=== PATIENT | female | born 1975 | race Caucasian/White ===

== ENCOUNTER 2017-05-15 13:14 | Inpatient (IN) | payer MEDICARE ==
[2017-05-15] MEDS: CEFEPIME 2GM/50 ML (PMX) 50 ML IVPB (21:00)
[2017-05-15] MEDS: ONDANSETRON 4 MG INJ IV (21:04)
[2017-05-15] MEDS: HYDROmorphONE 1 MG/ML SYG IV (21:04)
[2017-05-15] MEDS: VANCOMYCIN 1 GM (PMX) 250 ML IVPB (21:05)
[2017-05-15] MEDS: SODIUM CHLORIDE 0.9% 1L BAG IV* (21:06)
[2017-05-15 21:17] LABS: ADD MAN DIFF? NO
[2017-05-15 21:21] LABS: BASOPHILS % 0.2 % (0.0-2.0); EOSINOPHILS % 0.1 % (0.0-7.0); HEMATOCRIT 35.6 % (37.0-47.0); HEMOGLOBIN 12.2 g/dl (12.0-16.0); LYMPHOCYTES # 2.3 10^3/ul (0.8-2.9); LYMPHOCYTES % 16.5 % (15.0-51.0); MEAN CORPUSCULAR HEMOGLOBIN 28.8 pg (29.0-33.0); MEAN CORPUSCULAR HGB CONC 34.3 g/dl (32.0-37.0); MEAN CORPUSCULAR VOLUME 84.2 fl (82.0-101.0); MONOCYTE # 1.4 10^3/ul (0.3-0.9); MONOCYTES % 10.2 % (0.0-11.0); NEUTROPHIL # 10.2 10^3/ul (1.6-7.5); NEUTROPHILS % 72.6 % (39.0-77.0); PLATELET COUNT 432 10^3/UL (140-415); RED BLOOD COUNT 4.23 10^6/ul (4.20-5.40); RED CELL DISTRIBUTION WIDTH 13.1 % (11.5-14.5)
[2017-05-15 21:21] LABS: WHITE BLOOD COUNT 14.1 10^3/ul (4.8-10.8)
[2017-05-15 21:36] LABS: INR 1.07; PT RATIO 1.1
[2017-05-15 21:37] LABS: LACTIC ACID 1.5 mmol/L (0.5-2.0)
[2017-05-15 21:37] LABS: PARTIAL THROMBOPLASTIN TIME 37.8 Sec (25.0-35.0)
[2017-05-15 21:40] LABS: ALANINE AMINOTRANSFERASE 24 IU/L (13-69); ALBUMIN 3.5 g/dl (3.3-4.9); ALBUMIN/GLOBULIN RATIO 0.97; ALKALINE PHOSPHATASE 117 IU/L (42-121); ANION GAP 15 (8-16); ASPARTATE AMINO TRANSFERASE 26 IU/L (15-46); BILIRUBIN,INDIRECT 0.4 mg/dl (0-1.1); BILIRUBIN,TOTAL 0.4 mg/dl (0.2-1.3); BLOOD UREA NITROGEN 14 mg/dl (7-20); CALCIUM 8.8 mg/dl (8.4-10.2); CARBON DIOXIDE 27 mmol/L (21-31); CHLORIDE 91 mmol/L (97-110); CREATININE 0.69 mg/dl (0.44-1.00); GLUCOSE 113 mg/dl (70-220); POTASSIUM 3.9 mmol/L (3.5-5.1); SODIUM 129 mmol/L (135-144); TOTAL PROTEIN 7.1 g/dl (6.1-8.1)
[2017-05-15 21:51] LABS: TROPONIN-I < 0.012 ng/ml (0.00-0.12)
[2017-05-16] LABS: LACTIC ACID 1.1 mmol/L (0.5-2.0)
[2017-05-16] MEDS ORDERED: ACETAMINOPHEN 325 MG TAB PO (01:30)
[2017-05-16] MEDS ORDERED: ONDANSETRON 4 MG INJ IV (01:30)
[2017-05-16 04:11] LABS: LACTIC ACID 0.9 mmol/L (0.5-2.0)
[2017-05-16] MEDS ORDERED: VANCOMYCIN IV PER PHARMACY XX (05:00)
[2017-05-16] MEDS: HYDROmorphONE 0.5 MG/0.5 ML SYG IV ×5 (05:31→21:42)
[2017-05-16] MEDS: SOD CHLORIDE 0.9% 1,000 ML IV ×3 (05:35→20:28)
[2017-05-16 06:31] LABS: ADD MAN DIFF? NO
[2017-05-16 06:35] LABS: WHITE BLOOD COUNT 9.2 10^3/ul (4.8-10.8)
[2017-05-16 06:35] LABS: BASOPHILS % 0.2 % (0.0-2.0); EOSINOPHILS # 0.1 10^3/ul (0.0-0.5); EOSINOPHILS % 0.7 % (0.0-7.0); HEMATOCRIT 29.8 % (37.0-47.0); HEMOGLOBIN 10.1 g/dl (12.0-16.0); LYMPHOCYTES # 1.6 10^3/ul (0.8-2.9); LYMPHOCYTES % 17.7 % (15.0-51.0); MEAN CORPUSCULAR HEMOGLOBIN 28.8 pg (29.0-33.0); MEAN CORPUSCULAR HGB CONC 33.9 g/dl (32.0-37.0); MEAN CORPUSCULAR VOLUME 84.9 fl (82.0-101.0); MEAN PLATELET VOLUME 8.4 fl (7.4-10.4); MONOCYTES % 11.1 % (0.0-11.0); NEUTROPHIL # 6.4 10^3/ul (1.6-7.5); PLATELET COUNT 291 10^3/UL (140-415); RED BLOOD COUNT 3.51 10^6/ul (4.20-5.40); RED CELL DISTRIBUTION WIDTH 12.8 % (11.5-14.5)
[2017-05-16 07:01] LABS: ANION GAP 11 (8-16); BLOOD UREA NITROGEN 10 mg/dl (7-20); CARBON DIOXIDE 25 mmol/L (21-31); CHLORIDE 99 mmol/L (97-110); GLUCOSE 104 mg/dl (70-220); POTASSIUM 3.6 mmol/L (3.5-5.1); SODIUM 131 mmol/L (135-144)
[2017-05-16] MEDS: CEFEPIME 2GM/50 ML (PMX) 50 ML IVPB (08:34)
[2017-05-16] MEDS: VANCOMYCIN 1.25 GM in SOD CHLORIDE 0.9% 250 ML IVPB (09:55)
[2017-05-16] MEDS: LIDOCAINE 1% (MPF) 5 ML VIAL SC ×2 (12:00→12:35)
[2017-05-16] MEDS: SOD CHLORIDE 0.9% 100 ML (12:50)
[2017-05-16] MEDS: PIPER-TAZO 3.375 GM IV (PMX) 100 ML IVPB ×2 (13:49→20:27)
[2017-05-16] MEDS: VANCOMYCIN 1 GM 250 ML IVPB (18:05)
[2017-05-17] MEDS: SOD CHLORIDE 0.9% 1,000 ML IV ×4 (00:45→23:18)
[2017-05-17] MEDS: PIPER-TAZO 3.375 GM IV (PMX) 100 ML IVPB ×4 (00:45→18:03)
[2017-05-17] MEDS: VANCOMYCIN 1 GM 250 ML IVPB ×3 (02:21→22:12)
[2017-05-17] MEDS: HYDROmorphONE 0.5 MG/0.5 ML SYG IV ×3 (04:29→17:40)
[2017-05-17 05:42] LABS: ADD UMIC NO; UR AMORPHOUS CRYSTAL FEW /HPF (NONE SEEN); UR ASCORBIC ACID NEGATIVE (NEGATIVE); UR BACTERIA FEW /HPF (NONE SEEN); UR BILIRUBIN (Dip) NEGATIVE (NEGATIVE); UR BLOOD (Dip) NEGATIVE (NEGATIVE); UR CLARITY SLIGHTLY CLOUDY (CLEAR); UR COLOR YELLOW (YELLOW); UR GLUCOSE (Dip) NEGATIVE (NEGATIVE); UR KETONES (Dip) NEGATIVE (NEGATIVE); UR LEUKOCYTE ESTERASE (Dip) NEGATIVE Leu/ul (NEGATIVE); UR NITRITE (Dip) NEGATIVE (NEGATIVE); UR RBC 2 /HPF (0-5); UR SPECIFIC GRAVITY (Dip) 1.014 (1.003-1.030); UR TOTAL PROTEIN (Dip) NEGATIVE (NEGATIVE); UR UROBILINOGEN (Dip) NEGATIVE (NEGATIVE); UR WBC 4 /HPF (0-5)
[2017-05-17 05:48] LABS: ADD MAN DIFF? NO
[2017-05-17] MEDS: PANTOPRAZOLE (EC) 40 MG TAB PO (05:51)
[2017-05-17 06:00] LABS: BASOPHILS % 0.3 % (0.0-2.0); EOSINOPHILS % 0.4 % (0.0-7.0); HEMATOCRIT 27.8 % (37.0-47.0); HEMOGLOBIN 9.2 g/dl (12.0-16.0); LYMPHOCYTES % 12.8 % (15.0-51.0); MEAN CORPUSCULAR HEMOGLOBIN 28.8 pg (29.0-33.0); MEAN CORPUSCULAR HGB CONC 33.1 g/dl (32.0-37.0); MEAN CORPUSCULAR VOLUME 86.9 fl (82.0-101.0); MEAN PLATELET VOLUME 8.9 fl (7.4-10.4); MONOCYTE # 0.9 10^3/ul (0.3-0.9); MONOCYTES % 11.7 % (0.0-11.0); NEUTROPHIL # 5.9 10^3/ul (1.6-7.5); NEUTROPHILS % 74.3 % (39.0-77.0); PLATELET COUNT 299 10^3/UL (140-415); RED CELL DISTRIBUTION WIDTH 12.8 % (11.5-14.5)
[2017-05-17 06:21] LABS: ALANINE AMINOTRANSFERASE 25 IU/L (13-69); ALBUMIN 2.4 g/dl (3.3-4.9); ALBUMIN/GLOBULIN RATIO 0.75; ALKALINE PHOSPHATASE 87 IU/L (42-121); ANION GAP 12 (8-16); ASPARTATE AMINO TRANSFERASE 17 IU/L (15-46); BILIRUBIN,INDIRECT 0.1 mg/dl (0-1.1); BILIRUBIN,TOTAL 0.1 mg/dl (0.2-1.3); BLOOD UREA NITROGEN 10 mg/dl (7-20); CARBON DIOXIDE 24 mmol/L (21-31); CHLORIDE 100 mmol/L (97-110); CREATININE 1.09 mg/dl (0.44-1.00); GLUCOSE 107 mg/dl (70-220); MAGNESIUM 1.4 mg/dl (1.7-2.5); POTASSIUM 3.6 mmol/L (3.5-5.1); SODIUM 132 mmol/L (135-144); TOTAL PROTEIN 5.6 g/dl (6.1-8.1)
[2017-05-17 06:28] LABS: C-REACTIVE PROTEIN 16.9 mg/dl (0.0-0.9)
[2017-05-17 07:59] LABS: ERYTHROCYTE SEDIMENTATION RATE 81 mm/Hr (0-20)
[2017-05-17] MEDS: ZINC SULFATE 220 MG CAP GTB (08:33)
[2017-05-17] MEDS: MULTIVITAMINS THERAPEUTIC TAB PO (08:33)
[2017-05-17] MEDS: ONDANSETRON 4 MG INJ IV (09:21)
[2017-05-17] MEDS: MAGNESIUM SULFATE 3 GM in DEXTROSE 5% 100 ML IVPB (10:05)
[2017-05-17 10:46] LABS: VANCOMYCIN,TROUGH 26.2 ug/ml (10.0-20.0)
[2017-05-17] MEDS: LACTOBACILLUS RHAMNOSUS CAP PO ×2 (11:53→22:11)
[2017-05-17] MEDS: SOD CHLORIDE 0.9% 100 ML (14:25)
[2017-05-17 15:34] LABS: RAPID PLASMA REAGIN NONREACTIVE (NR); RHEUMATOID FACTOR NEGATIVE (NEGATIVE)
[2017-05-18] MEDS: PIPER-TAZO 3.375 GM IV (PMX) 100 ML IVPB ×4 (00:29→21:32)
[2017-05-18] MEDS: ONDANSETRON 4 MG INJ IV ×2 (03:15→10:10)
[2017-05-18] MEDS: HYDROmorphONE 0.5 MG/0.5 ML SYG IV ×3 (03:15→17:57)
[2017-05-18] MEDS: SOD CHLORIDE 0.9% 1,000 ML IV ×4 (05:00→23:05)
[2017-05-18] MEDS: PANTOPRAZOLE (EC) 40 MG TAB PO (05:15)
[2017-05-18 05:46] LABS: ADD MAN DIFF? NO
[2017-05-18 05:54] LABS: BASOPHILS % 0.3 % (0.0-2.0); EOSINOPHILS # 0.1 10^3/ul (0.0-0.5); HEMATOCRIT 27.2 % (37.0-47.0); LYMPHOCYTES % 13.5 % (15.0-51.0); MEAN CORPUSCULAR HEMOGLOBIN 28.6 pg (29.0-33.0); MEAN CORPUSCULAR HGB CONC 33.1 g/dl (32.0-37.0); MEAN CORPUSCULAR VOLUME 86.3 fl (82.0-101.0); MONOCYTE # 0.8 10^3/ul (0.3-0.9); MONOCYTES % 10.9 % (0.0-11.0); NEUTROPHIL # 5.2 10^3/ul (1.6-7.5); PLATELET COUNT 287 10^3/UL (140-415); RED BLOOD COUNT 3.15 10^6/ul (4.20-5.40); RED CELL DISTRIBUTION WIDTH 13.2 % (11.5-14.5)
[2017-05-18 05:54] LABS: WHITE BLOOD COUNT 7.1 10^3/ul (4.8-10.8)
[2017-05-18 06:19] LABS: ANION GAP 10 (8-16); BLOOD UREA NITROGEN 13 mg/dl (7-20); CALCIUM 8.1 mg/dl (8.4-10.2); CARBON DIOXIDE 23 mmol/L (21-31); CHLORIDE 104 mmol/L (97-110); CREATININE 1.93 mg/dl (0.44-1.00); GLUCOSE 111 mg/dl (70-220); MAGNESIUM 2.2 mg/dl (1.7-2.5); POTASSIUM 3.7 mmol/L (3.5-5.1); SODIUM 133 mmol/L (135-144)
[2017-05-18 06:49] LABS: TOTAL IRON BINDING CAPACITY 144 ug/dl (241-421)
[2017-05-18 07:27] LABS: IRON < 10 ug/dl (35-150)
[2017-05-18] MEDS: VANCOMYCIN 1 GM 250 ML IVPB (08:49)
[2017-05-18] MEDS: MULTIVITAMINS THERAPEUTIC TAB PO (08:50)
[2017-05-18] MEDS: ZINC SULFATE 220 MG CAP GTB (08:50)
[2017-05-18] MEDS: LACTOBACILLUS RHAMNOSUS CAP PO ×2 (08:51→21:32)
[2017-05-18] MEDS ORDERED: VITAMIN A & D 5 GM OINT PACKET TOP (18:02)
[2017-05-18] MEDS: SODIUM HYPOCHLORITE 0.125% 473 ML BTL IRR (21:33)
[2017-05-19] MEDS: HYDROmorphONE 0.5 MG/0.5 ML SYG IV ×5 (00:56→20:37)
[2017-05-19] MEDS: PIPER-TAZO 3.375 GM IV (PMX) 100 ML IVPB (05:42)
[2017-05-19] MEDS: PANTOPRAZOLE (EC) 40 MG TAB PO (05:42)
[2017-05-19] MEDS: SOD CHLORIDE 0.9% 1,000 ML IV ×4 (05:56→21:46)
[2017-05-19 06:04] LABS: ADD MAN DIFF? NO
[2017-05-19 06:12] LABS: BASOPHILS % 0.3 % (0.0-2.0); EOSINOPHILS # 0.1 10^3/ul (0.0-0.5); EOSINOPHILS % 2.3 % (0.0-7.0); HEMATOCRIT 28.2 % (37.0-47.0); HEMOGLOBIN 9.1 g/dl (12.0-16.0); LYMPHOCYTES # 1.2 10^3/ul (0.8-2.9); MEAN CORPUSCULAR HEMOGLOBIN 28.7 pg (29.0-33.0); MEAN CORPUSCULAR HGB CONC 32.3 g/dl (32.0-37.0); MEAN PLATELET VOLUME 8.8 fl (7.4-10.4); MONOCYTE # 0.8 10^3/ul (0.3-0.9); MONOCYTES % 13.1 % (0.0-11.0); NEUTROPHIL # 3.9 10^3/ul (1.6-7.5); PLATELET COUNT 319 10^3/UL (140-415); RED BLOOD COUNT 3.17 10^6/ul (4.20-5.40); RED CELL DISTRIBUTION WIDTH 13.2 % (11.5-14.5)
[2017-05-19 06:12] LABS: WHITE BLOOD COUNT 6.1 10^3/ul (4.8-10.8)
[2017-05-19 06:41] LABS: ALANINE AMINOTRANSFERASE 30 IU/L (13-69); ALBUMIN 2.3 g/dl (3.3-4.9); ALBUMIN/GLOBULIN RATIO 0.79; ALKALINE PHOSPHATASE 81 IU/L (42-121); ANION GAP 12 (8-16); ASPARTATE AMINO TRANSFERASE 13 IU/L (15-46); BILIRUBIN,INDIRECT 0.1 mg/dl (0-1.1); BILIRUBIN,TOTAL 0.1 mg/dl (0.2-1.3); BLOOD UREA NITROGEN 14 mg/dl (7-20); CALCIUM 7.9 mg/dl (8.4-10.2); CARBON DIOXIDE 20 mmol/L (21-31); CHLORIDE 109 mmol/L (97-110); CREATININE 2.17 mg/dl (0.44-1.00); GLUCOSE 90 mg/dl (70-220); MAGNESIUM 2.1 mg/dl (1.7-2.5); POTASSIUM 3.7 mmol/L (3.5-5.1); SODIUM 137 mmol/L (135-144); TOTAL PROTEIN 5.2 g/dl (6.1-8.1)
[2017-05-19 07:25] LABS: VANCOMYCIN,RANDOM 28.6 ug/ml
[2017-05-19] MEDS: ZINC SULFATE 220 MG CAP GTB (09:42)
[2017-05-19] MEDS: LACTOBACILLUS RHAMNOSUS CAP PO ×2 (09:42→20:37)
[2017-05-19] MEDS: MULTIVITAMINS THERAPEUTIC TAB PO (09:42)
[2017-05-19] MEDS: SODIUM HYPOCHLORITE 0.125% 473 ML BTL IRR ×2 (09:43→20:40)
[2017-05-19] MEDS: ONDANSETRON 4 MG INJ IV (10:36)
[2017-05-19] MEDS: PIPER-TAZO 2.25 GM (PMX) 50 ML IVPB ×2 (14:32→21:46)
[2017-05-20] MEDS: HYDROmorphONE 0.5 MG/0.5 ML SYG IV ×5 (00:58→21:41)
[2017-05-20] MEDS: PANTOPRAZOLE (EC) 40 MG TAB PO (05:32)
[2017-05-20] MEDS: PIPER-TAZO 2.25 GM (PMX) 50 ML IVPB ×3 (05:32→21:42)
[2017-05-20] MEDS: SOD CHLORIDE 0.9% 1,000 ML IV ×2 (05:33→07:30)
[2017-05-20 05:53] LABS: ADD MAN DIFF? NO
[2017-05-20 06:01] LABS: WHITE BLOOD COUNT 7.6 10^3/ul (4.8-10.8)
[2017-05-20 06:02] LABS: BASOPHILS % 0.3 % (0.0-2.0); EOSINOPHILS # 0.2 10^3/ul (0.0-0.5); EOSINOPHILS % 2.6 % (0.0-7.0); HEMATOCRIT 27.3 % (37.0-47.0); HEMOGLOBIN 8.9 g/dl (12.0-16.0); LYMPHOCYTES # 1.2 10^3/ul (0.8-2.9); LYMPHOCYTES % 15.7 % (15.0-51.0); MEAN CORPUSCULAR HEMOGLOBIN 28.7 pg (29.0-33.0); MEAN CORPUSCULAR HGB CONC 32.6 g/dl (32.0-37.0); MEAN CORPUSCULAR VOLUME 88.1 fl (82.0-101.0); MEAN PLATELET VOLUME 8.8 fl (7.4-10.4); MONOCYTES % 12.6 % (0.0-11.0); NEUTROPHIL # 5.2 10^3/ul (1.6-7.5); NEUTROPHILS % 68.4 % (39.0-77.0); PLATELET COUNT 354 10^3/UL (140-415); RED CELL DISTRIBUTION WIDTH 13.2 % (11.5-14.5)
[2017-05-20 06:16] LABS: ALANINE AMINOTRANSFERASE 24 IU/L (13-69); ALBUMIN 2.3 g/dl (3.3-4.9); ALBUMIN/GLOBULIN RATIO 0.76; ALKALINE PHOSPHATASE 78 IU/L (42-121); ANION GAP 9 (8-16); ASPARTATE AMINO TRANSFERASE 9 IU/L (15-46); BLOOD UREA NITROGEN 16 mg/dl (7-20); CALCIUM 8.1 mg/dl (8.4-10.2); CARBON DIOXIDE 20 mmol/L (21-31); CHLORIDE 111 mmol/L (97-110); CREATININE 2.57 mg/dl (0.44-1.00); GLUCOSE 99 mg/dl (70-220); MAGNESIUM 1.9 mg/dl (1.7-2.5); POTASSIUM 3.7 mmol/L (3.5-5.1); SODIUM 136 mmol/L (135-144); TOTAL PROTEIN 5.3 g/dl (6.1-8.1)
[2017-05-20] MEDS: MULTIVITAMINS THERAPEUTIC TAB PO (08:21)
[2017-05-20] MEDS: ZINC SULFATE 220 MG CAP GTB (08:21)
[2017-05-20] MEDS: SODIUM HYPOCHLORITE 0.125% 473 ML BTL IRR ×2 (08:21→21:43)
[2017-05-20] MEDS: LACTOBACILLUS RHAMNOSUS CAP PO ×2 (08:22→21:41)
[2017-05-20 08:49] LABS: PHOSPHORUS 4.4 mg/dl (2.5-4.9)
[2017-05-20] MEDS: SOD FERRIC GLUC COMPLX 125 MG in SOD CHLORIDE 0.9% 100 ML IVPB (10:02)
[2017-05-20] MEDS: MAGNESIUM SULFATE 3 GM in DEXTROSE 5% 100 ML IVPB (11:06)
[2017-05-20 18:01] LABS: ADD UMIC YES; UR AMORPHOUS CRYSTAL MODERATE /HPF (NONE SEEN); UR ASCORBIC ACID NEGATIVE (NEGATIVE); UR BACTERIA FEW /HPF (NONE SEEN); UR BILIRUBIN (Dip) NEGATIVE (NEGATIVE); UR BLOOD (Dip) NEGATIVE (NEGATIVE); UR CLARITY CLOUDY (CLEAR); UR COLOR YELLOW (YELLOW); UR GLUCOSE (Dip) NEGATIVE (NEGATIVE); UR KETONES (Dip) NEGATIVE (NEGATIVE); UR LEUKOCYTE ESTERASE (Dip) NEGATIVE Leu/ul (NEGATIVE); UR NITRITE (Dip) NEGATIVE (NEGATIVE); UR RBC 1 /HPF (0-5); UR SPECIFIC GRAVITY (Dip) 1.008 (1.003-1.030); UR TOTAL PROTEIN (Dip) 1+ mg/dl (NEGATIVE); UR UROBILINOGEN (Dip) NEGATIVE (NEGATIVE); UR WBC 2 /HPF (0-5)
[2017-05-20 18:03] LABS: PROTEIN/CREAT RATIO 0.84 RATIO
[2017-05-20 18:06] LABS: SODIUM,URINE RANDOM 28 mmol/L (30-90)
[2017-05-20] MEDS: EPOETIN 10000 UNITS/ML (NON ESRD/NON ONCOLOGY) SC (18:29)
[2017-05-21] MEDS: SOD CHLORIDE 0.9% 1,000 ML IV ×3 (00:49→21:40)
[2017-05-21] MEDS: HYDROmorphONE 0.5 MG/0.5 ML SYG IV ×5 (00:53→21:46)
[2017-05-21] MEDS: PANTOPRAZOLE (EC) 40 MG TAB PO (05:24)
[2017-05-21] MEDS: PIPER-TAZO 2.25 GM (PMX) 50 ML IVPB (05:25)
[2017-05-21 06:41] LABS: ADD MAN DIFF? NO
[2017-05-21 06:49] LABS: BASOPHILS % 0.1 % (0.0-2.0); EOSINOPHILS # 0.2 10^3/ul (0.0-0.5); EOSINOPHILS % 2.3 % (0.0-7.0); HEMATOCRIT 29.1 % (37.0-47.0); HEMOGLOBIN 9.6 g/dl (12.0-16.0); LYMPHOCYTES # 1.2 10^3/ul (0.8-2.9); LYMPHOCYTES % 14.4 % (15.0-51.0); MEAN CORPUSCULAR HEMOGLOBIN 28.9 pg (29.0-33.0); MEAN CORPUSCULAR VOLUME 87.7 fl (82.0-101.0); MEAN PLATELET VOLUME 8.7 fl (7.4-10.4); MONOCYTE # 0.9 10^3/ul (0.3-0.9); MONOCYTES % 10.8 % (0.0-11.0); NEUTROPHIL # 5.9 10^3/ul (1.6-7.5); NEUTROPHILS % 71.8 % (39.0-77.0); PLATELET COUNT 379 10^3/UL (140-415); RED BLOOD COUNT 3.32 10^6/ul (4.20-5.40); RED CELL DISTRIBUTION WIDTH 13.2 % (11.5-14.5)
[2017-05-21 06:49] LABS: WHITE BLOOD COUNT 8.2 10^3/ul (4.8-10.8)
[2017-05-21 07:06] LABS: PHOSPHORUS 4.3 mg/dl (2.5-4.9)
[2017-05-21 07:06] LABS: MAGNESIUM 2.4 mg/dl (1.7-2.5)
[2017-05-21 07:10] LABS: ALANINE AMINOTRANSFERASE 26 IU/L (13-69); ALBUMIN 2.4 g/dl (3.3-4.9); ALBUMIN/GLOBULIN RATIO 0.77; ALKALINE PHOSPHATASE 89 IU/L (42-121); ANION GAP 15 (8-16); ASPARTATE AMINO TRANSFERASE 11 IU/L (15-46); BLOOD UREA NITROGEN 18 mg/dl (7-20); CARBON DIOXIDE 18 mmol/L (21-31); CHLORIDE 112 mmol/L (97-110); CREATININE 3.01 mg/dl (0.44-1.00); GLUCOSE 91 mg/dl (70-220); POTASSIUM 3.8 mmol/L (3.5-5.1); SODIUM 141 mmol/L (135-144); TOTAL PROTEIN 5.5 g/dl (6.1-8.1)
[2017-05-21] MEDS ORDERED: MEPERIDINE 25 MG INJ IV (07:30)
[2017-05-21] MEDS ORDERED: FENTAnyl 50 MCG/ML VIAL IV ×2 (07:30)
[2017-05-21] MEDS ORDERED: ONDANSETRON 4 MG INJ IV (07:30)
[2017-05-21] MEDS ORDERED: EPHEDrine SULFATE 50 MG/5 ML SYG IV (07:30)
[2017-05-21] MEDS ORDERED: LABETALOL HCL 20MG INJ IV (07:30)
[2017-05-21] MEDS ORDERED: hydrALAzine 20 MG INJ IV (07:30)
[2017-05-21] MEDS ORDERED: METOCLOPRAMIDE 10 MG INJ IV (07:30)
[2017-05-21] MEDS ORDERED: FENTAnyl 50 MCG/ML VIAL ×2 (07:50→09:10)
[2017-05-21] MEDS ORDERED: MIDAZOLAM 1 MG/ML 2 ML INJ (07:50)
[2017-05-21] MEDS ORDERED: PROPOFOL 20 ML (07:50)
[2017-05-21] MEDS ORDERED: BISACODYL 10 MG SUPP PR (08:00)
[2017-05-21] MEDS ORDERED: MAGNESIUM HYDROXIDE 30ML CUP PO (08:00)
[2017-05-21] MEDS: BUPIVACAINE 0.25% (MPF) 30 ML INJ (08:53)
[2017-05-21] MEDS: LIDOCAINE 1%/EPI 30 ML INJ (08:53)
[2017-05-21] MEDS: SODIUM HYPOCHLORITE 0.125% 473 ML BTL IRR ×3 (09:00→21:41)
[2017-05-21] MEDS: FENTAnyl 50 MCG/ML VIAL IV (09:08)
[2017-05-21] MEDS ORDERED: METOCLOPRAMIDE 10 MG INJ (09:10)
[2017-05-21] MEDS ORDERED: DEXAMETHASONE 4 MG/ML 1 ML INJ (09:10)
[2017-05-21] MEDS ORDERED: PHENYLephrine (100 MCG/ML) 5ML SYG (09:10)
[2017-05-21] MEDS ORDERED: ONDANSETRON 4 MG INJ (09:10)
[2017-05-21] MEDS ORDERED: PHENYLephrine 10 MG INJ (09:10)
[2017-05-21] MEDS: DIPHENHYDRAMINE 50 MG INJ IV (09:11)
[2017-05-21] MEDS: LEVOFLOXACIN 500 MG TAB PO (09:51)
[2017-05-21] MEDS: ZINC SULFATE 220 MG CAP GTB (09:51)
[2017-05-21] MEDS: MULTIVITAMINS THERAPEUTIC TAB PO (09:51)
[2017-05-21] MEDS: LACTOBACILLUS RHAMNOSUS CAP PO ×2 (09:51→21:40)
[2017-05-21] MEDS: SOD FERRIC GLUC COMPLX 125 MG in SOD CHLORIDE 0.9% 100 ML IVPB (09:54)
[2017-05-21] MEDS: ONDANSETRON 4 MG INJ IV (09:57)
[2017-05-21] MEDS: LACTULOSE 30ML CUP PO (16:55)
[2017-05-22] MEDS: SOD CHLORIDE 0.9% 1,000 ML IV ×3 (00:29→19:43)
[2017-05-22] MEDS: HYDROmorphONE 0.5 MG/0.5 ML SYG IV ×6 (02:44→19:48)
[2017-05-22] MEDS: PANTOPRAZOLE (EC) 40 MG TAB PO (05:47)
[2017-05-22 06:07] LABS: ADD MAN DIFF? NO
[2017-05-22 06:21] LABS: WHITE BLOOD COUNT 10.1 10^3/ul (4.8-10.8)
[2017-05-22 06:21] LABS: BASOPHILS % 0.2 % (0.0-2.0); EOSINOPHILS # 0.1 10^3/ul (0.0-0.5); EOSINOPHILS % 1.2 % (0.0-7.0); HEMATOCRIT 29.7 % (37.0-47.0); HEMOGLOBIN 9.4 g/dl (12.0-16.0); LYMPHOCYTES # 1.5 10^3/ul (0.8-2.9); LYMPHOCYTES % 14.7 % (15.0-51.0); MEAN CORPUSCULAR HEMOGLOBIN 28.4 pg (29.0-33.0); MEAN CORPUSCULAR HGB CONC 31.6 g/dl (32.0-37.0); MEAN CORPUSCULAR VOLUME 89.7 fl (82.0-101.0); MEAN PLATELET VOLUME 8.7 fl (7.4-10.4); MONOCYTE # 1.1 10^3/ul (0.3-0.9); MONOCYTES % 10.7 % (0.0-11.0); NEUTROPHIL # 7.3 10^3/ul (1.6-7.5); NEUTROPHILS % 72.5 % (39.0-77.0); PLATELET COUNT 391 10^3/UL (140-415); RED BLOOD COUNT 3.31 10^6/ul (4.20-5.40); RED CELL DISTRIBUTION WIDTH 13.3 % (11.5-14.5)
[2017-05-22 06:54] LABS: ANION GAP 11 (8-16); BLOOD UREA NITROGEN 22 mg/dl (7-20); CALCIUM 8.1 mg/dl (8.4-10.2); CARBON DIOXIDE 20 mmol/L (21-31); CHLORIDE 114 mmol/L (97-110); CREATININE 3.15 mg/dl (0.44-1.00); GLUCOSE 91 mg/dl (70-220); MAGNESIUM 2.3 mg/dl (1.7-2.5); POTASSIUM 3.7 mmol/L (3.5-5.1); SODIUM 141 mmol/L (135-144)
[2017-05-22] MEDS: LACTOBACILLUS RHAMNOSUS CAP PO ×2 (08:49→21:00)
[2017-05-22] MEDS: LEVOFLOXACIN 250 MG TAB PO (08:50)
[2017-05-22] MEDS: MULTIVITAMINS THERAPEUTIC TAB PO (08:50)
[2017-05-22] MEDS: ZINC SULFATE 220 MG CAP GTB (08:50)
[2017-05-22] MEDS: SODIUM HYPOCHLORITE 1/40% 1L IRRIG IRR (08:51)
[2017-05-22] MEDS: ONDANSETRON 4 MG INJ IV ×3 (08:54→19:47)
[2017-05-22] MEDS: SODIUM HYPOCHLORITE 0.125% 473 ML BTL IRR ×2 (09:00→21:00)
[2017-05-22] MEDS: SOD FERRIC GLUC COMPLX 125 MG in SOD CHLORIDE 0.9% 100 ML IVPB (10:02)
[2017-05-22] MEDS: MAGNESIUM SULFATE 2 GM/50 ML 50 ML IVPB (11:02)
[2017-05-22] MEDS: EPOETIN 10000 UNITS/ML (NON ESRD/NON ONCOLOGY) SC (17:49)
[2017-05-23] MEDS: HYDROmorphONE 0.5 MG/0.5 ML SYG IV ×6 (00:22→22:05)
[2017-05-23] MEDS: ONDANSETRON 4 MG INJ IV ×3 (00:22→10:48)
[2017-05-23] MEDS: SOD CHLORIDE 0.9% 1,000 ML IV (04:27)
[2017-05-23] MEDS: LEVOFLOXACIN 250 MG TAB PO (05:13)
[2017-05-23] MEDS: PANTOPRAZOLE (EC) 40 MG TAB PO (05:13)
[2017-05-23] MEDS: SODIUM HYPOCHLORITE 0.125% 473 ML BTL IRR ×3 (05:14→21:02)
[2017-05-23] MEDS: MULTIVITAMINS THERAPEUTIC TAB PO (08:34)
[2017-05-23] MEDS: ZINC SULFATE 220 MG CAP GTB (08:34)
[2017-05-23] MEDS: LACTOBACILLUS RHAMNOSUS CAP PO ×2 (08:34→21:01)
[2017-05-23] MEDS: SODIUM HYPOCHLORITE 1/40% 1L IRRIG IRR (08:35)
[2017-05-23] MEDS: ALTEPLASE (CATHFLO) 2 MG INJ CATHETER (09:47)
[2017-05-23] MEDS: SOD FERRIC GLUC COMPLX 125 MG in SOD CHLORIDE 0.9% 100 ML IVPB (10:48)
[2017-05-23] MEDS: MAGNESIUM SULFATE 3 GM in DEXTROSE 5% 100 ML IVPB (12:30)
[2017-05-23 13:39] LABS: ADD MAN DIFF? NO
[2017-05-23 13:47] LABS: BASOPHILS % 0.2 % (0.0-2.0); EOSINOPHILS # 0.2 10^3/ul (0.0-0.5); EOSINOPHILS % 2.4 % (0.0-7.0); HEMATOCRIT 27.1 % (37.0-47.0); HEMOGLOBIN 8.8 g/dl (12.0-16.0); LYMPHOCYTES # 1.2 10^3/ul (0.8-2.9); LYMPHOCYTES % 13.8 % (15.0-51.0); MEAN CORPUSCULAR HEMOGLOBIN 28.8 pg (29.0-33.0); MEAN CORPUSCULAR HGB CONC 32.5 g/dl (32.0-37.0); MEAN CORPUSCULAR VOLUME 88.6 fl (82.0-101.0); MEAN PLATELET VOLUME 8.7 fl (7.4-10.4); MONOCYTE # 0.8 10^3/ul (0.3-0.9); NEUTROPHIL # 6.1 10^3/ul (1.6-7.5); NEUTROPHILS % 72.5 % (39.0-77.0); PLATELET COUNT 332 10^3/UL (140-415); RED BLOOD COUNT 3.06 10^6/ul (4.20-5.40); RED CELL DISTRIBUTION WIDTH 13.6 % (11.5-14.5)
[2017-05-23 13:47] LABS: WHITE BLOOD COUNT 8.4 10^3/ul (4.8-10.8)
[2017-05-23 14:08] LABS: ANION GAP 13 (8-16); BLOOD UREA NITROGEN 26 mg/dl (7-20); CALCIUM 7.9 mg/dl (8.4-10.2); CARBON DIOXIDE 17 mmol/L (21-31); CHLORIDE 113 mmol/L (97-110); CREATININE 3.37 mg/dl (0.44-1.00); GLUCOSE 99 mg/dl (70-220); MAGNESIUM 2.4 mg/dl (1.7-2.5); POTASSIUM 3.7 mmol/L (3.5-5.1); SODIUM 139 mmol/L (135-144)
[2017-05-23 14:08] LABS: PHOSPHORUS 4.6 mg/dl (2.5-4.9)
[2017-05-24] MEDS: SOD CHLORIDE 0.9% 1,000 ML IV (00:08)
[2017-05-24] MEDS: PANTOPRAZOLE (EC) 40 MG TAB PO (05:38)
[2017-05-24] MEDS: HYDROmorphONE 0.5 MG/0.5 ML SYG IV ×5 (05:39→21:21)
[2017-05-24] MEDS: LEVOFLOXACIN 250 MG TAB PO (05:39)
[2017-05-24 06:11] LABS: ADD MAN DIFF? NO
[2017-05-24 06:31] LABS: WHITE BLOOD COUNT 9.5 10^3/ul (4.8-10.8)
[2017-05-24 06:31] LABS: BASOPHILS % 0.2 % (0.0-2.0); EOSINOPHILS # 0.2 10^3/ul (0.0-0.5); EOSINOPHILS % 2.1 % (0.0-7.0); HEMATOCRIT 24.1 % (37.0-47.0); HEMOGLOBIN 7.9 g/dl (12.0-16.0); LYMPHOCYTES # 1.1 10^3/ul (0.8-2.9); LYMPHOCYTES % 11.1 % (15.0-51.0); MEAN CORPUSCULAR HEMOGLOBIN 28.8 pg (29.0-33.0); MEAN CORPUSCULAR HGB CONC 32.8 g/dl (32.0-37.0); MONOCYTE # 0.9 10^3/ul (0.3-0.9); MONOCYTES % 9.1 % (0.0-11.0); NEUTROPHIL # 7.2 10^3/ul (1.6-7.5); NEUTROPHILS % 76.2 % (39.0-77.0); PLATELET COUNT 309 10^3/UL (140-415); RED BLOOD COUNT 2.74 10^6/ul (4.20-5.40); RED CELL DISTRIBUTION WIDTH 13.8 % (11.5-14.5)
[2017-05-24 07:24] LABS: ANION GAP 12 (8-16); BLOOD UREA NITROGEN 28 mg/dl (7-20); CALCIUM 8.2 mg/dl (8.4-10.2); CARBON DIOXIDE 16 mmol/L (21-31); CHLORIDE 114 mmol/L (97-110); CREATININE 3.48 mg/dl (0.44-1.00); GLUCOSE 97 mg/dl (70-220); POTASSIUM 3.9 mmol/L (3.5-5.1); SODIUM 138 mmol/L (135-144)
[2017-05-24] MEDS: ALBUTEROL 0.083% (NEB) 2.5 MG/3 ML AMP HHN ×2 (08:05→16:21)
[2017-05-24] MEDS: SODIUM HYPOCHLORITE 0.125% 473 ML BTL IRR ×3 (09:00→21:00)
[2017-05-24] MEDS: SODIUM HYPOCHLORITE 1/40% 1L IRRIG IRR (09:00)
[2017-05-24] MEDS: MULTIVITAMINS THERAPEUTIC TAB PO (09:16)
[2017-05-24] MEDS: LACTOBACILLUS RHAMNOSUS CAP PO ×2 (09:16→21:20)
[2017-05-24] MEDS: ZINC SULFATE 220 MG CAP GTB (09:16)
[2017-05-24] MEDS: ONDANSETRON 4 MG INJ IV (09:22)
[2017-05-24] MEDS: SOD FERRIC GLUC COMPLX 125 MG in SOD CHLORIDE 0.9% 100 ML IVPB (10:23)
[2017-05-24] MEDS: EPOETIN 10000 UNITS/ML (NON ESRD/NON ONCOLOGY) SC (17:51)
[2017-05-25] MEDS: SOD CHLORIDE 0.9% 1,000 ML IV (00:27)
[2017-05-25] MEDS: LEVOFLOXACIN 250 MG TAB PO (06:24)
[2017-05-25] MEDS: PANTOPRAZOLE (EC) 40 MG TAB PO (06:24)
[2017-05-25 06:25] LABS: ADD MAN DIFF? NO
[2017-05-25] MEDS: HYDROmorphONE 0.5 MG/0.5 ML SYG IV ×4 (06:26→22:03)
[2017-05-25 06:30] LABS: BASOPHILS % 0.5 % (0.0-2.0); EOSINOPHILS # 0.2 10^3/ul (0.0-0.5); EOSINOPHILS % 2.3 % (0.0-7.0); HEMATOCRIT 25.3 % (37.0-47.0); HEMOGLOBIN 8.2 g/dl (12.0-16.0); LYMPHOCYTES # 1.1 10^3/ul (0.8-2.9); LYMPHOCYTES % 13.1 % (15.0-51.0); MEAN CORPUSCULAR HEMOGLOBIN 28.4 pg (29.0-33.0); MEAN CORPUSCULAR HGB CONC 32.4 g/dl (32.0-37.0); MEAN CORPUSCULAR VOLUME 87.5 fl (82.0-101.0); MONOCYTE # 0.9 10^3/ul (0.3-0.9); MONOCYTES % 10.1 % (0.0-11.0); NEUTROPHIL # 6.1 10^3/ul (1.6-7.5); NEUTROPHILS % 72.2 % (39.0-77.0); PLATELET COUNT 326 10^3/UL (140-415); RED BLOOD COUNT 2.89 10^6/ul (4.20-5.40)
[2017-05-25 06:30] LABS: WHITE BLOOD COUNT 8.4 10^3/ul (4.8-10.8)
[2017-05-25 07:22] LABS: ANION GAP 16 (8-16); BLOOD UREA NITROGEN 29 mg/dl (7-20); CALCIUM 7.8 mg/dl (8.4-10.2); CARBON DIOXIDE 16 mmol/L (21-31); CHLORIDE 115 mmol/L (97-110); CREATININE 3.18 mg/dl (0.44-1.00); GLUCOSE 87 mg/dl (70-220); MAGNESIUM 2.7 mg/dl (1.7-2.5); POTASSIUM 3.9 mmol/L (3.5-5.1); SODIUM 143 mmol/L (135-144)
[2017-05-25 08:52] LABS: ERYTHROCYTE SEDIMENTATION RATE 110 mm/Hr (0-20)
[2017-05-25] MEDS: SODIUM HYPOCHLORITE 0.125% 473 ML BTL IRR ×2 (09:00→16:00)
[2017-05-25] MEDS: SODIUM HYPOCHLORITE 1/40% 1L IRRIG IRR ×2 (09:00→16:00)
[2017-05-25] MEDS: LACTOBACILLUS RHAMNOSUS CAP PO ×2 (09:44→22:03)
[2017-05-25] MEDS: ONDANSETRON 4 MG INJ IV ×2 (09:44→16:53)
[2017-05-25] MEDS: MULTIVITAMINS THERAPEUTIC TAB PO (09:44)
[2017-05-25] MEDS: ZINC SULFATE 220 MG CAP GTB (09:44)
[2017-05-25 12:06] LABS: AADO2 Arterial 32.1 mmHg (7.0-24.0); Allen Test ACCEPTAB; Arterial Base Excess -7.8 mmol/L (-3.0-3); Arterial Blood Gas Oxygen Sat 95.9 mmHG (95.0-98.0); Arterial COHb 0.5 % (0.0-3.0); Arterial Fraction of Oxyhgb 95.3 % (93.0-99.0); Arterial HCO3 16.5 mmol/L (22.0-26.0); Arterial MetHb 0.1 % (0.0-1.5); Arterial Total Hemglobin 8.3 g/dl (12.0-18.0); Arterial pCO2 29.2 mmhg (35-45); MODE ROOM AIR; Site Right Radial
[2017-05-25] MEDS: LACTULOSE 30ML CUP PO (13:14)
[2017-05-25] MEDS: NA BICARBONATE 8.4% 50 ML SYG IV ×2 (16:49→17:52)
[2017-05-25] MEDS: ACETAMINOPHEN 325 MG TAB PO (17:51)
[2017-05-25 22:30] LABS: OCCULT BLOOD STOOL NEGATIVE (NEGATIVE)
[2017-05-26] MEDS: PANTOPRAZOLE (EC) 40 MG TAB PO (05:50)
[2017-05-26] MEDS: LEVOFLOXACIN 250 MG TAB PO (05:50)
[2017-05-26] MEDS: HYDROmorphONE 0.5 MG/0.5 ML SYG IV ×6 (05:51→23:28)
[2017-05-26 06:09] LABS: ADD MAN DIFF? NO
[2017-05-26 06:14] LABS: BASOPHILS % 0.4 % (0.0-2.0); EOSINOPHILS # 0.3 10^3/ul (0.0-0.5); EOSINOPHILS % 2.5 % (0.0-7.0); HEMATOCRIT 25.4 % (37.0-47.0); HEMOGLOBIN 8.5 g/dl (12.0-16.0); LYMPHOCYTES # 1.4 10^3/ul (0.8-2.9); LYMPHOCYTES % 13.1 % (15.0-51.0); MEAN CORPUSCULAR HEMOGLOBIN 29.3 pg (29.0-33.0); MEAN CORPUSCULAR HGB CONC 33.5 g/dl (32.0-37.0); MEAN CORPUSCULAR VOLUME 87.6 fl (82.0-101.0); MEAN PLATELET VOLUME 9.3 fl (7.4-10.4); MONOCYTE # 0.9 10^3/ul (0.3-0.9); MONOCYTES % 8.5 % (0.0-11.0); NEUTROPHILS % 74.1 % (39.0-77.0); PLATELET COUNT 318 10^3/UL (140-415); RED CELL DISTRIBUTION WIDTH 14.5 % (11.5-14.5)
[2017-05-26 06:14] LABS: WHITE BLOOD COUNT 10.8 10^3/ul (4.8-10.8)
[2017-05-26 07:02] LABS: ANION GAP 14 (8-16); BLOOD UREA NITROGEN 31 mg/dl (7-20); CARBON DIOXIDE 20 mmol/L (21-31); CHLORIDE 117 mmol/L (97-110); CREATININE 3.43 mg/dl (0.44-1.00); GLUCOSE 92 mg/dl (70-220); MAGNESIUM 2.6 mg/dl (1.7-2.5); PHOSPHORUS 4.8 mg/dl (2.5-4.9); POTASSIUM 4.1 mmol/L (3.5-5.1); SODIUM 147 mmol/L (135-144)
[2017-05-26] MEDS: SODIUM HYPOCHLORITE 1/40% 1L IRRIG IRR (09:00)
[2017-05-26] MEDS: SODIUM HYPOCHLORITE 0.125% 473 ML BTL IRR ×2 (09:00→20:32)
[2017-05-26] MEDS: LACTOBACILLUS RHAMNOSUS CAP PO ×2 (09:03→20:24)
[2017-05-26] MEDS: ONDANSETRON 4 MG INJ IV ×2 (09:03→13:40)
[2017-05-26] MEDS: MULTIVITAMINS THERAPEUTIC TAB PO (09:03)
[2017-05-26] MEDS: ZINC SULFATE 220 MG CAP GTB (09:03)
[2017-05-26] MEDS: SOD CHLORIDE 0.45% 1,000 ML IV ×2 (12:09→20:32)
[2017-05-26] MEDS: DIPHENHYDRAMINE 25 MG CAP PO ×2 (13:40→20:31)
[2017-05-26 14:16] LABS: SODIUM,URINE RANDOM 54 mmol/L (30-90)
[2017-05-26 14:19] LABS: ADD UMIC YES; UR ASCORBIC ACID NEGATIVE (NEGATIVE); UR BACTERIA FEW /HPF (NONE SEEN); UR BILIRUBIN (Dip) NEGATIVE (NEGATIVE); UR BLOOD (Dip) 1+ mg/dL (NEGATIVE); UR BUDDING YEAST MODERATE /HPF (NONE SEEN); UR CLARITY CLOUDY (CLEAR); UR COLOR STRAW (YELLOW); UR GLUCOSE (Dip) NEGATIVE (NEGATIVE); UR KETONES (Dip) NEGATIVE (NEGATIVE); UR LEUKOCYTE ESTERASE (Dip) 3+ Leu/ul (NEGATIVE); UR NITRITE (Dip) NEGATIVE (NEGATIVE); UR RBC 4 /HPF (0-5); UR SPECIFIC GRAVITY (Dip) 1.005 (1.003-1.030); UR SQUAMOUS EPITHELIAL CELL FEW /HPF (FEW); UR TOTAL PROTEIN (Dip) NEGATIVE (NEGATIVE); UR UROBILINOGEN (Dip) NEGATIVE (NEGATIVE); UR WBC 49 /HPF (0-5)
[2017-05-26 14:21] LABS: CREATININE,URINE RANDOM 28.97 mg/dl (20-320)
[2017-05-26] MEDS ORDERED: VANCOMYCIN 500MG/NS (PMX) 100 ML IVPB (22:30)
[2017-05-26] MEDS ORDERED: DIPHENHYDRAMINE 25 MG CAP PO (22:30)
[2017-05-27] MEDS: SOD CHLORIDE 0.45% 1,000 ML IV ×4 (02:05→21:18)
[2017-05-27] MEDS: VANCOMYCIN 1.5 GM in SOD CHLORIDE 0.9% 250 ML IVPB (02:06)
[2017-05-27] MEDS: HYDROmorphONE 0.5 MG/0.5 ML SYG IV ×5 (03:25→21:16)
[2017-05-27] MEDS: DIPHENHYDRAMINE 25 MG CAP PO ×4 (03:25→21:15)
[2017-05-27] MEDS: PANTOPRAZOLE (EC) 40 MG TAB PO (05:02)
[2017-05-27 05:36] LABS: ADD MAN DIFF? NO
[2017-05-27 05:46] LABS: BASOPHIL # 0.1 10^3/ul (0.0-0.1); BASOPHILS % 0.4 % (0.0-2.0); EOSINOPHILS # 0.3 10^3/ul (0.0-0.5); EOSINOPHILS % 2.4 % (0.0-7.0); HEMATOCRIT 27.3 % (37.0-47.0); HEMOGLOBIN 8.7 g/dl (12.0-16.0); LYMPHOCYTES # 1.3 10^3/ul (0.8-2.9); LYMPHOCYTES % 10.8 % (15.0-51.0); MEAN CORPUSCULAR HEMOGLOBIN 28.6 pg (29.0-33.0); MEAN CORPUSCULAR HGB CONC 31.9 g/dl (32.0-37.0); MEAN CORPUSCULAR VOLUME 89.8 fl (82.0-101.0); MEAN PLATELET VOLUME 9.2 fl (7.4-10.4); MONOCYTE # 1.2 10^3/ul (0.3-0.9); MONOCYTES % 9.7 % (0.0-11.0); NEUTROPHIL # 9.1 10^3/ul (1.6-7.5); NEUTROPHILS % 75.6 % (39.0-77.0); PLATELET COUNT 303 10^3/UL (140-415); RED BLOOD COUNT 3.04 10^6/ul (4.20-5.40); RED CELL DISTRIBUTION WIDTH 14.6 % (11.5-14.5)
[2017-05-27 06:31] LABS: MAGNESIUM 2.2 mg/dl (1.7-2.5)
[2017-05-27 08:07] LABS: ALANINE AMINOTRANSFERASE 26 IU/L (13-69); ALBUMIN 2.2 g/dl (3.3-4.9); ALBUMIN/GLOBULIN RATIO 0.78; ALKALINE PHOSPHATASE 88 IU/L (42-121); ANION GAP 11 (8-16); ASPARTATE AMINO TRANSFERASE 15 IU/L (15-46); BLOOD UREA NITROGEN 31 mg/dl (7-20); CALCIUM 7.9 mg/dl (8.4-10.2); CARBON DIOXIDE 20 mmol/L (21-31); CHLORIDE 117 mmol/L (97-110); CREATININE 3.53 mg/dl (0.44-1.00); GLUCOSE 102 mg/dl (70-220); POTASSIUM 4.3 mmol/L (3.5-5.1); SODIUM 144 mmol/L (135-144)
[2017-05-27] MEDS ORDERED: TRIAMCINOLONE ACET 0.1% 15 GM CR TOP (09:00)
[2017-05-27] MEDS: CEFTRIAXONE 2 GM/50 ML (PMX) 50 ML IVPB (09:46)
[2017-05-27] MEDS: ZINC SULFATE 220 MG CAP GTB (09:46)
[2017-05-27] MEDS: METOCLOPRAMIDE 10 MG INJ IV (09:46)
[2017-05-27] MEDS: LACTOBACILLUS RHAMNOSUS CAP PO ×2 (09:46→21:16)
[2017-05-27] MEDS: ZYVOX 600 MG TAB PO ×2 (09:46→21:15)
[2017-05-27] MEDS: MULTIVITAMINS THERAPEUTIC TAB PO (09:46)
[2017-05-27] MEDS: FLUCONAZOLE 100 MG TAB PO (09:47)
[2017-05-27] MEDS: SODIUM HYPOCHLORITE 0.125% 473 ML BTL IRR ×2 (11:52→21:17)
[2017-05-27] MEDS: SODIUM HYPOCHLORITE 1/40% 1L IRRIG IRR (11:53)
[2017-05-27] MEDS: EPOETIN 10000 UNITS/ML (NON ESRD/NON ONCOLOGY) SC (18:10)
[2017-05-27] MEDS: NYSTATIN 30 GM POWDER BTL TOP (21:15)
[2017-05-28] MEDS: DIPHENHYDRAMINE 25 MG CAP PO ×4 (02:41→21:08)
[2017-05-28] MEDS: HYDROmorphONE 0.5 MG/0.5 ML SYG IV ×3 (02:42→10:05)
[2017-05-28] MEDS: SOD CHLORIDE 0.45% 1,000 ML IV ×6 (03:00→22:27)
[2017-05-28] MEDS: PANTOPRAZOLE (EC) 40 MG TAB PO (05:36)
[2017-05-28 05:46] LABS: ADD MAN DIFF? NO
[2017-05-28 05:58] LABS: BASOPHILS % 0.3 % (0.0-2.0); EOSINOPHILS # 0.3 10^3/ul (0.0-0.5); EOSINOPHILS % 2.1 % (0.0-7.0); HEMATOCRIT 26.4 % (37.0-47.0); HEMOGLOBIN 8.4 g/dl (12.0-16.0); LYMPHOCYTES # 1.3 10^3/ul (0.8-2.9); LYMPHOCYTES % 9.7 % (15.0-51.0); MEAN CORPUSCULAR HEMOGLOBIN 28.9 pg (29.0-33.0); MEAN CORPUSCULAR HGB CONC 31.8 g/dl (32.0-37.0); MEAN CORPUSCULAR VOLUME 90.7 fl (82.0-101.0); MEAN PLATELET VOLUME 9.1 fl (7.4-10.4); MONOCYTE # 1.1 10^3/ul (0.3-0.9); MONOCYTES % 7.7 % (0.0-11.0); NEUTROPHILS % 79.1 % (39.0-77.0); PLATELET COUNT 284 10^3/UL (140-415); RED BLOOD COUNT 2.91 10^6/ul (4.20-5.40); RED CELL DISTRIBUTION WIDTH 15.1 % (11.5-14.5)
[2017-05-28 05:58] LABS: WHITE BLOOD COUNT 13.8 10^3/ul (4.8-10.8)
[2017-05-28 06:24] LABS: MAGNESIUM 1.9 mg/dl (1.7-2.5)
[2017-05-28 06:47] LABS: ANION GAP 14 (8-16); BLOOD UREA NITROGEN 33 mg/dl (7-20); CALCIUM 7.5 mg/dl (8.4-10.2); CARBON DIOXIDE 18 mmol/L (21-31); CHLORIDE 112 mmol/L (97-110); CREATININE 3.36 mg/dl (0.44-1.00); GLUCOSE 84 mg/dl (70-220); POTASSIUM 4.3 mmol/L (3.5-5.1); SODIUM 140 mmol/L (135-144)
[2017-05-28] MEDS: METOCLOPRAMIDE 10 MG INJ IV (07:14)
[2017-05-28] MEDS: CEFTRIAXONE 2 GM/50 ML (PMX) 50 ML IVPB (08:35)
[2017-05-28] MEDS: MULTIVITAMINS THERAPEUTIC TAB PO (08:47)
[2017-05-28] MEDS: LACTOBACILLUS RHAMNOSUS CAP PO ×2 (08:48→21:09)
[2017-05-28] MEDS: ZYVOX 600 MG TAB PO ×2 (08:48→21:09)
[2017-05-28] MEDS: FLUCONAZOLE 100 MG TAB PO (08:49)
[2017-05-28] MEDS: ZINC SULFATE 220 MG CAP GTB (08:52)
[2017-05-28] MEDS: SODIUM HYPOCHLORITE 0.125% 473 ML BTL IRR (09:00)
[2017-05-28] MEDS: NYSTATIN 30 GM POWDER BTL TOP ×2 (09:00→21:10)
[2017-05-28] MEDS: HEPARIN 5,000 UNIT/0.5 ML VIAL SC ×2 (09:53→21:00)
[2017-05-28] MEDS: SODIUM HYPOCHLORITE 1/40% 1L IRRIG IRR (16:44)
[2017-05-29] MEDS: HYDROmorphONE 0.5 MG/0.5 ML SYG IV ×4 (01:45→19:07)
[2017-05-29] MEDS: METOCLOPRAMIDE 10 MG INJ IV ×3 (01:48→19:26)
[2017-05-29] MEDS: DIPHENHYDRAMINE 25 MG CAP PO ×4 (02:50→21:16)
[2017-05-29] MEDS: PANTOPRAZOLE (EC) 40 MG TAB PO (05:58)
[2017-05-29 06:03] LABS: ADD MAN DIFF? NO
[2017-05-29 06:05] LABS: BASOPHILS % 0.4 % (0.0-2.0); MEAN PLATELET VOLUME 9.2 fl (7.4-10.4)
[2017-05-29 06:10] LABS: BASOPHIL # 0.1 10^3/ul (0.0-0.1); EOSINOPHILS # 0.3 10^3/ul (0.0-0.5); EOSINOPHILS % 1.7 % (0.0-7.0); HEMATOCRIT 27.1 % (37.0-47.0); HEMOGLOBIN 8.7 g/dl (12.0-16.0); LYMPHOCYTES # 1.5 10^3/ul (0.8-2.9); LYMPHOCYTES % 8.1 % (15.0-51.0); MEAN CORPUSCULAR HEMOGLOBIN 28.9 pg (29.0-33.0); MEAN CORPUSCULAR HGB CONC 32.1 g/dl (32.0-37.0); MONOCYTE # 1.1 10^3/ul (0.3-0.9); NEUTROPHIL # 14.9 10^3/ul (1.6-7.5); NEUTROPHILS % 83.1 % (39.0-77.0); PLATELET COUNT 290 10^3/UL (140-415); RED BLOOD COUNT 3.01 10^6/ul (4.20-5.40); RED CELL DISTRIBUTION WIDTH 15.7 % (11.5-14.5)
[2017-05-29 06:33] LABS: PHOSPHORUS 5.2 mg/dl (2.5-4.9)
[2017-05-29 06:46] LABS: ANION GAP 14 (8-16); BLOOD UREA NITROGEN 33 mg/dl (7-20); CALCIUM 7.9 mg/dl (8.4-10.2); CARBON DIOXIDE 19 mmol/L (21-31); CHLORIDE 116 mmol/L (97-110); CREATININE 3.46 mg/dl (0.44-1.00); GLUCOSE 85 mg/dl (70-220); MAGNESIUM 1.9 mg/dl (1.7-2.5); POTASSIUM 4.7 mmol/L (3.5-5.1); SODIUM 144 mmol/L (135-144)
[2017-05-29] MEDS ORDERED: METHYLPREDNISOLONE (MEDROL) DOSE PACK PO (09:00)
[2017-05-29] MEDS: SODIUM HYPOCHLORITE 1/40% 1L IRRIG IRR (09:00)
[2017-05-29] MEDS: SOD CHLORIDE 0.45% 1,000 ML IV (09:19)
[2017-05-29] MEDS: CEFTRIAXONE 2 GM/50 ML (PMX) 50 ML IVPB (09:20)
[2017-05-29] MEDS: LACTOBACILLUS RHAMNOSUS CAP PO ×2 (09:22→21:16)
[2017-05-29] MEDS: MULTIVITAMINS THERAPEUTIC TAB PO (09:23)
[2017-05-29] MEDS: FLUCONAZOLE 100 MG TAB PO (09:23)
[2017-05-29] MEDS: ZINC SULFATE 220 MG CAP GTB (09:23)
[2017-05-29] MEDS: ZYVOX 600 MG TAB PO ×2 (09:23→21:16)
[2017-05-29] MEDS: NYSTATIN 30 GM POWDER BTL TOP ×2 (09:33→21:17)
[2017-05-29] MEDS: METHYLPREDNISOLONE 4 MG TAB PO (11:13)
[2017-05-29] MEDS: HEPARIN 5,000 UNIT/0.5 ML VIAL SC ×2 (11:16→21:00)
[2017-05-29] MEDS: EPOETIN 10000 UNITS/ML (NON ESRD/NON ONCOLOGY) SC (19:02)
[2017-05-30] MEDS: SOD CHLORIDE 0.45% 1,000 ML IV ×5 (02:01→23:43)
[2017-05-30] MEDS: DIPHENHYDRAMINE 25 MG CAP PO ×4 (02:25→20:57)
[2017-05-30] MEDS: PANTOPRAZOLE (EC) 40 MG TAB PO (05:33)
[2017-05-30 06:27] LABS: ADD MAN DIFF? NO
[2017-05-30 06:38] LABS: BASOPHIL # 0.1 10^3/ul (0.0-0.1); BASOPHILS % 0.3 % (0.0-2.0); EOSINOPHILS % 0.1 % (0.0-7.0); HEMATOCRIT 33.2 % (37.0-47.0); HEMOGLOBIN 10.4 g/dl (12.0-16.0); LYMPHOCYTES # 1.5 10^3/ul (0.8-2.9); LYMPHOCYTES % 6.9 % (15.0-51.0); MEAN CORPUSCULAR HGB CONC 31.3 g/dl (32.0-37.0); MEAN CORPUSCULAR VOLUME 89.5 fl (82.0-101.0); MEAN PLATELET VOLUME 9.2 fl (7.4-10.4); MONOCYTES % 4.6 % (0.0-11.0); NEUTROPHIL # 18.4 10^3/ul (1.6-7.5); NEUTROPHILS % 86.8 % (39.0-77.0); PLATELET COUNT 332 10^3/UL (140-415); RED BLOOD COUNT 3.71 10^6/ul (4.20-5.40); RED CELL DISTRIBUTION WIDTH 15.6 % (11.5-14.5)
[2017-05-30 06:38] LABS: WHITE BLOOD COUNT 21.2 10^3/ul (4.8-10.8)
[2017-05-30 07:07] LABS: ANION GAP 16 (8-16); BLOOD UREA NITROGEN 32 mg/dl (7-20); CALCIUM 8.2 mg/dl (8.4-10.2); CARBON DIOXIDE 19 mmol/L (21-31); CHLORIDE 113 mmol/L (97-110); CREATININE 3.36 mg/dl (0.44-1.00); GLUCOSE 90 mg/dl (70-220); MAGNESIUM 1.8 mg/dl (1.7-2.5); PHOSPHORUS 5.4 mg/dl (2.5-4.9); POTASSIUM 4.7 mmol/L (3.5-5.1); SODIUM 143 mmol/L (135-144)
[2017-05-30] MEDS: CEFTRIAXONE 2 GM/50 ML (PMX) 50 ML IVPB (08:00)
[2017-05-30] MEDS: SODIUM HYPOCHLORITE 1/40% 1L IRRIG IRR (08:33)
[2017-05-30] MEDS: NYSTATIN 30 GM POWDER BTL TOP ×2 (08:33→20:57)
[2017-05-30] MEDS: ZYVOX 600 MG TAB PO ×2 (08:34→20:57)
[2017-05-30] MEDS: FLUCONAZOLE 100 MG TAB PO (08:34)
[2017-05-30] MEDS: MULTIVITAMINS THERAPEUTIC TAB PO (08:34)
[2017-05-30] MEDS: METHYLPREDNISOLONE 4 MG TAB PO ×4 (08:34→20:57)
[2017-05-30] MEDS: ZINC SULFATE 220 MG CAP GTB (08:34)
[2017-05-30] MEDS: LACTOBACILLUS RHAMNOSUS CAP PO ×2 (08:34→20:57)
[2017-05-30] MEDS: HYDROmorphONE 0.5 MG/0.5 ML SYG IV ×4 (08:35→23:47)
[2017-05-30] MEDS: HEPARIN 5,000 UNIT/0.5 ML VIAL SC ×2 (08:40→20:57)
[2017-05-30] MEDS: METOCLOPRAMIDE 10 MG INJ IV ×2 (08:47→23:47)
[2017-05-30] MEDS: CALAMINE/PRAMOXINE LOT 180 ML BTL TOP (12:00)
[2017-05-30] MEDS: COLLOIDAL OATMEAL TOP (12:00)
[2017-05-30] MEDS: metroNIDAZOLE 500 MG/NS (PMX) 100 ML IVPB ×2 (14:41→21:26)
[2017-05-30 16:46] LABS: ADD UMIC YES; UR ASCORBIC ACID NEGATIVE (NEGATIVE); UR BACTERIA FEW /HPF (NONE SEEN); UR BILIRUBIN (Dip) NEGATIVE (NEGATIVE); UR BLOOD (Dip) 2+ mg/dL (NEGATIVE); UR CLARITY CLOUDY (CLEAR); UR COLOR YELLOW (YELLOW); UR GLUCOSE (Dip) NEGATIVE (NEGATIVE); UR KETONES (Dip) NEGATIVE (NEGATIVE); UR LEUKOCYTE ESTERASE (Dip) 3+ Leu/ul (NEGATIVE); UR NITRITE (Dip) NEGATIVE (NEGATIVE); UR RBC 12 /HPF (0-5); UR SPECIFIC GRAVITY (Dip) 1.008 (1.003-1.030); UR SQUAMOUS EPITHELIAL CELL MODERATE /HPF (FEW); UR TOTAL PROTEIN (Dip) NEGATIVE (NEGATIVE); UR UROBILINOGEN (Dip) NEGATIVE (NEGATIVE); UR WBC 21 /HPF (0-5)
[2017-05-30 16:53] LABS: CREATININE,URINE RANDOM 33.43 mg/dl (20-320); PROTEIN/CREAT RATIO 0.47 RATIO
[2017-05-31] MEDS: DIPHENHYDRAMINE 25 MG CAP PO ×4 (02:49→21:12)
[2017-05-31] MEDS: PANTOPRAZOLE (EC) 40 MG TAB PO (05:23)
[2017-05-31] MEDS: metroNIDAZOLE 500 MG/NS (PMX) 100 ML IVPB (05:23)
[2017-05-31] MEDS: METOCLOPRAMIDE 10 MG INJ IV ×3 (05:40→21:11)
[2017-05-31] MEDS: HYDROmorphONE 0.5 MG/0.5 ML SYG IV ×4 (05:41→21:11)
[2017-05-31 06:25] LABS: ADD MAN DIFF? NO
[2017-05-31 06:29] LABS: WHITE BLOOD COUNT 17.3 10^3/ul (4.8-10.8)
[2017-05-31 06:29] LABS: BASOPHILS % 0.2 % (0.0-2.0); EOSINOPHILS % 0.1 % (0.0-7.0); HEMATOCRIT 30.3 % (37.0-47.0); HEMOGLOBIN 9.6 g/dl (12.0-16.0); LYMPHOCYTES # 1.2 10^3/ul (0.8-2.9); LYMPHOCYTES % 6.7 % (15.0-51.0); MEAN CORPUSCULAR HEMOGLOBIN 28.7 pg (29.0-33.0); MEAN CORPUSCULAR HGB CONC 31.7 g/dl (32.0-37.0); MEAN CORPUSCULAR VOLUME 90.4 fl (82.0-101.0); MEAN PLATELET VOLUME 9.1 fl (7.4-10.4); MONOCYTE # 0.5 10^3/ul (0.3-0.9); MONOCYTES % 2.8 % (0.0-11.0); NEUTROPHIL # 15.2 10^3/ul (1.6-7.5); NEUTROPHILS % 88.4 % (39.0-77.0); PLATELET COUNT 343 10^3/UL (140-415); RED BLOOD COUNT 3.35 10^6/ul (4.20-5.40)
[2017-05-31 06:52] LABS: ANION GAP 15 (8-16); BLOOD UREA NITROGEN 30 mg/dl (7-20); CALCIUM 8.3 mg/dl (8.4-10.2); CARBON DIOXIDE 20 mmol/L (21-31); CHLORIDE 114 mmol/L (97-110); CREATININE 3.01 mg/dl (0.44-1.00); GLUCOSE 98 mg/dl (70-220); SODIUM 144 mmol/L (135-144)
[2017-05-31 08:38] LABS: COMPLEMENT C3 106 mg/dl (88-165); COMPLEMENT C4 40 mg/dl (14-44)
[2017-05-31] MEDS: ZINC SULFATE 220 MG CAP GTB ×2 (09:00→12:32)
[2017-05-31] MEDS: COLLOIDAL OATMEAL TOP (09:51)
[2017-05-31] MEDS: ZYVOX 600 MG TAB PO ×2 (09:58→21:12)
[2017-05-31] MEDS: METHYLPREDNISOLONE 4 MG TAB PO ×4 (09:58→21:11)
[2017-05-31] MEDS: MULTIVITAMINS THERAPEUTIC TAB PO (09:59)
[2017-05-31] MEDS: FLUCONAZOLE 100 MG TAB PO (09:59)
[2017-05-31] MEDS: LACTOBACILLUS RHAMNOSUS CAP PO ×2 (09:59→21:12)
[2017-05-31] MEDS: NYSTATIN 30 GM POWDER BTL TOP ×2 (10:01→21:13)
[2017-05-31] MEDS: CALAMINE/PRAMOXINE LOT 180 ML BTL TOP ×2 (10:02→21:25)
[2017-05-31] MEDS: HEPARIN 5,000 UNIT/0.5 ML VIAL SC ×2 (10:04→21:16)
[2017-05-31] MEDS: SOD CHLORIDE 0.45% 1,000 ML IV ×2 (10:47→23:47)
[2017-05-31] MEDS: EPOETIN 10000 UNITS/ML (NON ESRD/NON ONCOLOGY) SC (18:02)
[2017-05-31] MEDS: FLUOCINONIDE 0.05% 15 GM CR TOP (21:24)
[2017-06-01] MEDS: DIPHENHYDRAMINE 25 MG CAP PO ×5 (03:00→21:38)
[2017-06-01] MEDS: HYDROmorphONE 0.5 MG/0.5 ML SYG IV ×4 (03:34→21:36)
[2017-06-01] MEDS: PANTOPRAZOLE (EC) 40 MG TAB PO (05:15)
[2017-06-01] MEDS: METOCLOPRAMIDE 10 MG INJ IV ×3 (05:15→21:34)
[2017-06-01 06:24] LABS: ADD MAN DIFF? NO
[2017-06-01 06:35] LABS: WHITE BLOOD COUNT 13.3 10^3/ul (4.8-10.8)
[2017-06-01 06:35] LABS: BASOPHILS % 0.3 % (0.0-2.0); EOSINOPHILS % 0.3 % (0.0-7.0); HEMOGLOBIN 9.2 g/dl (12.0-16.0); LYMPHOCYTES # 1.5 10^3/ul (0.8-2.9); MEAN CORPUSCULAR HEMOGLOBIN 28.2 pg (29.0-33.0); MEAN CORPUSCULAR HGB CONC 30.7 g/dl (32.0-37.0); MEAN PLATELET VOLUME 9.2 fl (7.4-10.4); MONOCYTE # 0.7 10^3/ul (0.3-0.9); NEUTROPHIL # 10.9 10^3/ul (1.6-7.5); PLATELET COUNT 305 10^3/UL (140-415); RED BLOOD COUNT 3.26 10^6/ul (4.20-5.40); RED CELL DISTRIBUTION WIDTH 16.1 % (11.5-14.5)
[2017-06-01 07:02] LABS: ALANINE AMINOTRANSFERASE 24 IU/L (13-69); ALBUMIN 2.3 g/dl (3.3-4.9); ALBUMIN/GLOBULIN RATIO 0.79; ALKALINE PHOSPHATASE 95 IU/L (42-121); ANION GAP 15 (8-16); ASPARTATE AMINO TRANSFERASE 14 IU/L (15-46); BLOOD UREA NITROGEN 29 mg/dl (7-20); CALCIUM 8.2 mg/dl (8.4-10.2); CARBON DIOXIDE 23 mmol/L (21-31); CHLORIDE 112 mmol/L (97-110); CREATININE 2.53 mg/dl (0.44-1.00); GLUCOSE 93 mg/dl (70-220); MAGNESIUM 1.6 mg/dl (1.7-2.5); PHOSPHORUS 5.1 mg/dl (2.5-4.9); SODIUM 145 mmol/L (135-144); TOTAL PROTEIN 5.2 g/dl (6.1-8.1)
[2017-06-01 08:20] LABS: ERYTHROCYTE SEDIMENTATION RATE 68 mm/Hr (0-20)
[2017-06-01] MEDS: BACITRACIN 0.9 GM OINT TOP (09:00)
[2017-06-01] MEDS: HEPARIN 5,000 UNIT/0.5 ML VIAL SC ×2 (09:00→21:34)
[2017-06-01] MEDS: ZINC SULFATE 220 MG CAP GTB (09:00)
[2017-06-01] MEDS: FLUOCINONIDE 0.05% 15 GM CR TOP ×2 (09:00→21:39)
[2017-06-01] MEDS: CALAMINE/PRAMOXINE LOT 180 ML BTL TOP ×2 (09:00→21:39)
[2017-06-01] MEDS: NYSTATIN 30 GM POWDER BTL TOP ×2 (09:00→21:39)
[2017-06-01] MEDS: ZYVOX 600 MG TAB PO ×2 (09:53→21:38)
[2017-06-01] MEDS: METHYLPREDNISOLONE 4 MG TAB PO ×3 (09:53→21:38)
[2017-06-01] MEDS: FLUCONAZOLE 100 MG TAB PO (09:54)
[2017-06-01] MEDS: LACTOBACILLUS RHAMNOSUS CAP PO ×2 (09:55→21:38)
[2017-06-01] MEDS: MULTIVITAMINS THERAPEUTIC TAB PO (09:55)
[2017-06-01 14:51] LABS: ANA SCREEN NEGATIVE (NEGATIVE); ANCA SCREEN NEGATIVE (NEGATIVE); MYELOPEROXIDASE ANTIBODY <1.0 AI; PROTEINASE-3 ANTIBODY <1.0 AI
[2017-06-01] MEDS: SOD CHLORIDE 0.45% 1,000 ML IV (17:15)
[2017-06-02] MEDS: HYDROmorphONE 0.5 MG/0.5 ML SYG IV ×5 (01:52→21:23)
[2017-06-02] MEDS: DIPHENHYDRAMINE 25 MG CAP PO ×4 (03:00→21:18)
[2017-06-02] MEDS: PANTOPRAZOLE (EC) 40 MG TAB PO (05:24)
[2017-06-02] MEDS: METOCLOPRAMIDE 10 MG INJ IV ×2 (05:24→18:03)
[2017-06-02 06:26] LABS: ADD MAN DIFF? NO
[2017-06-02 06:34] LABS: BASOPHILS % 0.4 % (0.0-2.0); EOSINOPHILS # 0.2 10^3/ul (0.0-0.5); EOSINOPHILS % 1.5 % (0.0-7.0); HEMATOCRIT 28.4 % (37.0-47.0); HEMOGLOBIN 8.8 g/dl (12.0-16.0); LYMPHOCYTES # 1.8 10^3/ul (0.8-2.9); LYMPHOCYTES % 18.2 % (15.0-51.0); MEAN CORPUSCULAR HEMOGLOBIN 28.4 pg (29.0-33.0); MEAN CORPUSCULAR VOLUME 91.6 fl (82.0-101.0); MEAN PLATELET VOLUME 9.2 fl (7.4-10.4); MONOCYTE # 0.6 10^3/ul (0.3-0.9); NEUTROPHIL # 7.2 10^3/ul (1.6-7.5); NEUTROPHILS % 72.9 % (39.0-77.0); PLATELET COUNT 274 10^3/UL (140-415); RED CELL DISTRIBUTION WIDTH 16.4 % (11.5-14.5)
[2017-06-02 06:34] LABS: WHITE BLOOD COUNT 9.8 10^3/ul (4.8-10.8)
[2017-06-02 07:02] LABS: URIC ACID 6.5 mg/dl (3.1-7.9)
[2017-06-02 07:16] LABS: ALANINE AMINOTRANSFERASE 27 IU/L (13-69); ALBUMIN 2.2 g/dl (3.3-4.9); ALBUMIN/GLOBULIN RATIO 0.78; ALKALINE PHOSPHATASE 83 IU/L (42-121); ANION GAP 16 (8-16); ASPARTATE AMINO TRANSFERASE 17 IU/L (15-46); BLOOD UREA NITROGEN 26 mg/dl (7-20); CARBON DIOXIDE 24 mmol/L (21-31); CHLORIDE 112 mmol/L (97-110); CREATININE 2.09 mg/dl (0.44-1.00); GLUCOSE 93 mg/dl (70-220); MAGNESIUM 1.5 mg/dl (1.7-2.5); PHOSPHORUS 4.6 mg/dl (2.5-4.9); POTASSIUM 4.7 mmol/L (3.5-5.1); SODIUM 147 mmol/L (135-144)
[2017-06-02] MEDS: CALAMINE/PRAMOXINE LOT 180 ML BTL TOP ×2 (09:00→21:22)
[2017-06-02] MEDS: FLUOCINONIDE 0.05% 15 GM CR TOP ×2 (09:00→21:22)
[2017-06-02] MEDS: ZINC SULFATE 220 MG CAP GTB (09:00)
[2017-06-02] MEDS: NYSTATIN 30 GM POWDER BTL TOP ×2 (09:00→21:21)
[2017-06-02] MEDS: BACITRACIN 0.9 GM OINT TOP (09:00)
[2017-06-02] MEDS: MULTIVITAMINS THERAPEUTIC TAB PO (09:37)
[2017-06-02] MEDS: METHYLPREDNISOLONE 4 MG TAB PO ×2 (09:38→21:17)
[2017-06-02] MEDS: LACTOBACILLUS RHAMNOSUS CAP PO ×2 (09:39→21:18)
[2017-06-02] MEDS: ZYVOX 600 MG TAB PO ×2 (09:39→21:17)
[2017-06-02] MEDS: FLUCONAZOLE 100 MG TAB PO (09:39)
[2017-06-02] MEDS: HEPARIN 5,000 UNIT/0.5 ML VIAL SC ×2 (09:46→21:19)
[2017-06-02 11:33] LABS: OCCULT BLOOD STOOL NEGATIVE (NEGATIVE)
[2017-06-02] MEDS: DEXTROSE 5%-0.225% NACL 1,000 ML IV (15:50)
[2017-06-03] MEDS: HYDROmorphONE 0.5 MG/0.5 ML SYG IV ×5 (02:21→20:29)
[2017-06-03] MEDS: DIPHENHYDRAMINE 25 MG CAP PO ×4 (02:22→20:29)
[2017-06-03] MEDS: METOCLOPRAMIDE 10 MG INJ IV ×3 (02:23→16:26)
[2017-06-03] MEDS: PANTOPRAZOLE (EC) 40 MG TAB PO (05:44)
[2017-06-03 06:14] LABS: ADD MAN DIFF? NO
[2017-06-03 06:20] LABS: BASOPHILS % 0.4 % (0.0-2.0); EOSINOPHILS # 0.2 10^3/ul (0.0-0.5); EOSINOPHILS % 2.4 % (0.0-7.0); HEMATOCRIT 27.3 % (37.0-47.0); HEMOGLOBIN 8.5 g/dl (12.0-16.0); LYMPHOCYTES # 1.5 10^3/ul (0.8-2.9); LYMPHOCYTES % 19.7 % (15.0-51.0); MEAN CORPUSCULAR HEMOGLOBIN 28.4 pg (29.0-33.0); MEAN CORPUSCULAR HGB CONC 31.1 g/dl (32.0-37.0); MEAN CORPUSCULAR VOLUME 91.3 fl (82.0-101.0); MEAN PLATELET VOLUME 9.2 fl (7.4-10.4); MONOCYTE # 0.5 10^3/ul (0.3-0.9); MONOCYTES % 5.9 % (0.0-11.0); NEUTROPHIL # 5.4 10^3/ul (1.6-7.5); NEUTROPHILS % 70.8 % (39.0-77.0); PLATELET COUNT 209 10^3/UL (140-415); RED BLOOD COUNT 2.99 10^6/ul (4.20-5.40); RED CELL DISTRIBUTION WIDTH 16.4 % (11.5-14.5)
[2017-06-03 06:20] LABS: WHITE BLOOD COUNT 7.6 10^3/ul (4.8-10.8)
[2017-06-03 06:43] LABS: ALANINE AMINOTRANSFERASE 36 IU/L (13-69); ALBUMIN 2.2 g/dl (3.3-4.9); ALBUMIN/GLOBULIN RATIO 0.84; ALKALINE PHOSPHATASE 79 IU/L (42-121); ANION GAP 12 (8-16); ASPARTATE AMINO TRANSFERASE 25 IU/L (15-46); BLOOD UREA NITROGEN 19 mg/dl (7-20); CALCIUM 7.7 mg/dl (8.4-10.2); CARBON DIOXIDE 27 mmol/L (21-31); CHLORIDE 106 mmol/L (97-110); CREATININE 1.63 mg/dl (0.44-1.00); GLUCOSE 247 mg/dl (70-220); POTASSIUM 4.3 mmol/L (3.5-5.1); SODIUM 141 mmol/L (135-144); TOTAL PROTEIN 4.8 g/dl (6.1-8.1)
[2017-06-03] MEDS: METHYLPREDNISOLONE 4 MG TAB PO (09:42)
[2017-06-03] MEDS: LACTOBACILLUS RHAMNOSUS CAP PO ×2 (09:43→20:29)
[2017-06-03] MEDS: MULTIVITAMINS THERAPEUTIC TAB PO (09:43)
[2017-06-03] MEDS: ZYVOX 600 MG TAB PO ×2 (09:44→20:29)
[2017-06-03] MEDS: ZINC SULFATE 220 MG CAP GTB (09:44)
[2017-06-03] MEDS: FLUCONAZOLE 100 MG TAB PO (09:44)
[2017-06-03] MEDS: NYSTATIN 30 GM POWDER BTL TOP ×2 (09:45→20:28)
[2017-06-03] MEDS: CALAMINE/PRAMOXINE LOT 180 ML BTL TOP ×2 (09:46→20:28)
[2017-06-03] MEDS: FLUOCINONIDE 0.05% 15 GM CR TOP ×2 (09:47→20:28)
[2017-06-03] MEDS: BACITRACIN 0.9 GM OINT TOP (09:47)
[2017-06-03] MEDS: HEPARIN 5,000 UNIT/0.5 ML VIAL SC ×2 (09:48→20:31)
[2017-06-03] MEDS: DEXTROSE 5%-0.225% NACL 1,000 ML IV ×2 (11:30→15:40)
[2017-06-03] MEDS: EPOETIN 10000 UNITS/ML (NON ESRD/NON ONCOLOGY) SC (17:59)
[2017-06-04] MEDS: METOCLOPRAMIDE 10 MG INJ IV ×3 (00:18→20:29)
[2017-06-04] MEDS: HYDROmorphONE 0.5 MG/0.5 ML SYG IV ×5 (00:19→20:30)
[2017-06-04] MEDS: DIPHENHYDRAMINE 25 MG CAP PO ×4 (04:22→20:31)
[2017-06-04] MEDS: PANTOPRAZOLE (EC) 40 MG TAB PO (05:10)
[2017-06-04 06:08] LABS: ADD MAN DIFF? NO
[2017-06-04 06:17] LABS: BASOPHILS % 0.6 % (0.0-2.0); EOSINOPHILS # 0.3 10^3/ul (0.0-0.5); HEMATOCRIT 27.9 % (37.0-47.0); HEMOGLOBIN 8.6 g/dl (12.0-16.0); LYMPHOCYTES # 1.8 10^3/ul (0.8-2.9); LYMPHOCYTES % 24.9 % (15.0-51.0); MEAN CORPUSCULAR HEMOGLOBIN 28.2 pg (29.0-33.0); MEAN CORPUSCULAR HGB CONC 30.8 g/dl (32.0-37.0); MEAN CORPUSCULAR VOLUME 91.5 fl (82.0-101.0); MEAN PLATELET VOLUME 9.3 fl (7.4-10.4); MONOCYTE # 0.5 10^3/ul (0.3-0.9); MONOCYTES % 6.9 % (0.0-11.0); NEUTROPHIL # 4.5 10^3/ul (1.6-7.5); NEUTROPHILS % 62.8 % (39.0-77.0); PLATELET COUNT 221 10^3/UL (140-415); RED BLOOD COUNT 3.05 10^6/ul (4.20-5.40); RED CELL DISTRIBUTION WIDTH 15.9 % (11.5-14.5)
[2017-06-04 06:17] LABS: WHITE BLOOD COUNT 7.2 10^3/ul (4.8-10.8)
[2017-06-04 06:53] LABS: ANION GAP 11 (8-16); BLOOD UREA NITROGEN 16 mg/dl (7-20); CALCIUM 7.6 mg/dl (8.4-10.2); CARBON DIOXIDE 29 mmol/L (21-31); CHLORIDE 104 mmol/L (97-110); CREATININE 1.41 mg/dl (0.44-1.00); GLUCOSE 250 mg/dl (70-220); MAGNESIUM 1.3 mg/dl (1.7-2.5); POTASSIUM 3.9 mmol/L (3.5-5.1); SODIUM 140 mmol/L (135-144)
[2017-06-04] MEDS: ZINC SULFATE 220 MG CAP GTB (08:39)
[2017-06-04] MEDS: ZYVOX 600 MG TAB PO ×2 (08:39→20:32)
[2017-06-04] MEDS: ESCITALOPRAM 10 MG TAB PO (08:39)
[2017-06-04] MEDS: LACTOBACILLUS RHAMNOSUS CAP PO ×2 (08:39→20:32)
[2017-06-04] MEDS: MULTIVITAMINS THERAPEUTIC TAB PO (08:39)
[2017-06-04] MEDS: FLUCONAZOLE 100 MG TAB PO (08:40)
[2017-06-04] MEDS: NYSTATIN 30 GM POWDER BTL TOP ×2 (08:40→20:35)
[2017-06-04] MEDS: MAGNESIUM SULFATE 3 GM in DEXTROSE 5% 100 ML IVPB (08:40)
[2017-06-04] MEDS: FLUOCINONIDE 0.05% 15 GM CR TOP ×2 (08:41→20:35)
[2017-06-04] MEDS: CALAMINE/PRAMOXINE LOT 180 ML BTL TOP ×2 (08:41→20:35)
[2017-06-04] MEDS: HEPARIN 5,000 UNIT/0.5 ML VIAL SC ×2 (08:59→20:35)
[2017-06-04] MEDS: DEXTROSE 5%-0.225% NACL 1,000 ML IV ×2 (09:00→17:42)
[2017-06-04] MEDS: BACITRACIN 0.9 GM OINT TOP (09:21)
[2017-06-04] MEDS ORDERED: MAGNESIUM SULFATE 3 GM in DEXTROSE 5% 100 ML IVPB (10:00)
[2017-06-04 18:06] LABS: COMPLEMENT, TOTAL (CH50) >60 U/mL (31-60)
[2017-06-04] MEDS: ZOLPIDEM 5 MG TAB PO (20:31)
[2017-06-05] MEDS: DIPHENHYDRAMINE 25 MG CAP PO ×4 (02:56→20:42)
[2017-06-05] MEDS: METOCLOPRAMIDE 10 MG INJ IV (02:57)
[2017-06-05] MEDS: HYDROmorphONE 0.5 MG/0.5 ML SYG IV ×6 (02:57→19:08)
[2017-06-05] MEDS: PANTOPRAZOLE (EC) 40 MG TAB PO (05:15)
[2017-06-05 05:52] LABS: ADD MAN DIFF? NO
[2017-06-05 06:07] LABS: BASOPHILS % 0.5 % (0.0-2.0); EOSINOPHILS # 0.3 10^3/ul (0.0-0.5); EOSINOPHILS % 3.8 % (0.0-7.0); HEMATOCRIT 29.4 % (37.0-47.0); HEMOGLOBIN 9.1 g/dl (12.0-16.0); LYMPHOCYTES % 27.2 % (15.0-51.0); MEAN CORPUSCULAR HEMOGLOBIN 28.4 pg (29.0-33.0); MEAN CORPUSCULAR VOLUME 91.9 fl (82.0-101.0); MEAN PLATELET VOLUME 9.2 fl (7.4-10.4); MONOCYTE # 0.6 10^3/ul (0.3-0.9); MONOCYTES % 7.9 % (0.0-11.0); NEUTROPHIL # 4.4 10^3/ul (1.6-7.5); NEUTROPHILS % 59.9 % (39.0-77.0); PLATELET COUNT 235 10^3/UL (140-415); RED CELL DISTRIBUTION WIDTH 15.7 % (11.5-14.5)
[2017-06-05 06:07] LABS: WHITE BLOOD COUNT 7.3 10^3/ul (4.8-10.8)
[2017-06-05 06:41] LABS: ANION GAP 11 (8-16); BLOOD UREA NITROGEN 13 mg/dl (7-20); CALCIUM 7.6 mg/dl (8.4-10.2); CARBON DIOXIDE 31 mmol/L (21-31); CHLORIDE 104 mmol/L (97-110); CREATININE 1.24 mg/dl (0.44-1.00); GLUCOSE 194 mg/dl (70-220); MAGNESIUM 1.7 mg/dl (1.7-2.5); POTASSIUM 3.8 mmol/L (3.5-5.1); SODIUM 142 mmol/L (135-144)
[2017-06-05] MEDS ORDERED: ONDANSETRON 4 MG TAB PO (08:00)
[2017-06-05] MEDS: ESCITALOPRAM 10 MG TAB PO (09:33)
[2017-06-05] MEDS: ZYVOX 600 MG TAB PO ×2 (09:34→20:42)
[2017-06-05] MEDS: LACTOBACILLUS RHAMNOSUS CAP PO ×2 (09:35→20:42)
[2017-06-05] MEDS: MULTIVITAMINS THERAPEUTIC TAB PO (09:35)
[2017-06-05] MEDS: FLUCONAZOLE 100 MG TAB PO (09:35)
[2017-06-05] MEDS: MAGNESIUM SULFATE 2 GM/50 ML 50 ML IVPB (09:53)
[2017-06-05] MEDS: HEPARIN 5,000 UNIT/0.5 ML VIAL SC ×2 (09:56→20:45)
[2017-06-05 10:55] LABS: ADD UMIC YES; UR ASCORBIC ACID NEGATIVE (NEGATIVE); UR BACTERIA FEW /HPF (NONE SEEN); UR BILIRUBIN (Dip) NEGATIVE (NEGATIVE); UR BLOOD (Dip) 1+ mg/dL (NEGATIVE); UR CLARITY TURBID (CLEAR); UR COLOR YELLOW (YELLOW); UR GLUCOSE (Dip) NEGATIVE (NEGATIVE); UR KETONES (Dip) NEGATIVE (NEGATIVE); UR LEUKOCYTE ESTERASE (Dip) 1+ Leu/ul (NEGATIVE); UR NITRITE (Dip) NEGATIVE (NEGATIVE); UR RBC 1 /HPF (0-5); UR SPECIFIC GRAVITY (Dip) 1.005 (1.003-1.030); UR SQUAMOUS EPITHELIAL CELL MODERATE /HPF (FEW); UR TOTAL PROTEIN (Dip) NEGATIVE (NEGATIVE); UR UROBILINOGEN (Dip) NEGATIVE (NEGATIVE); UR WBC 65 /HPF (0-5)
[2017-06-05] MEDS: FLUOCINONIDE 0.05% 15 GM CR TOP ×2 (15:00→20:43)
[2017-06-05] MEDS: BACITRACIN 0.9 GM OINT TOP (15:00)
[2017-06-05] MEDS: NYSTATIN 30 GM POWDER BTL TOP ×2 (15:00→20:42)
[2017-06-05] MEDS: CALAMINE/PRAMOXINE LOT 180 ML BTL TOP ×2 (15:00→20:44)
[2017-06-05] MEDS: EPOETIN 10000 UNITS/ML (NON ESRD/NON ONCOLOGY) SC (18:45)
[2017-06-05] MEDS: ZOLPIDEM 5 MG TAB PO (20:52)
[2017-06-06] MEDS: METOCLOPRAMIDE 10 MG INJ IV ×4 (00:37→23:08)
[2017-06-06] MEDS: HYDROmorphONE 0.5 MG/0.5 ML SYG IV ×5 (00:38→23:08)
[2017-06-06] MEDS: DIPHENHYDRAMINE 25 MG CAP PO ×4 (03:11→21:12)
[2017-06-06] MEDS: DEXTROSE 5%-0.225% NACL 1,000 ML IV (03:11)
[2017-06-06 05:52] LABS: ADD MAN DIFF? NO
[2017-06-06] MEDS: PANTOPRAZOLE (EC) 40 MG TAB PO (06:08)
[2017-06-06 06:09] LABS: WHITE BLOOD COUNT 6.7 10^3/ul (4.8-10.8)
[2017-06-06 06:09] LABS: BASOPHILS % 0.6 % (0.0-2.0); EOSINOPHILS # 0.2 10^3/ul (0.0-0.5); EOSINOPHILS % 3.6 % (0.0-7.0); HEMOGLOBIN 9.4 g/dl (12.0-16.0); LYMPHOCYTES # 2.2 10^3/ul (0.8-2.9); LYMPHOCYTES % 32.9 % (15.0-51.0); MEAN CORPUSCULAR HEMOGLOBIN 28.7 pg (29.0-33.0); MEAN CORPUSCULAR HGB CONC 31.3 g/dl (32.0-37.0); MEAN CORPUSCULAR VOLUME 91.5 fl (82.0-101.0); MEAN PLATELET VOLUME 9.1 fl (7.4-10.4); MONOCYTE # 0.5 10^3/ul (0.3-0.9); NEUTROPHIL # 3.6 10^3/ul (1.6-7.5); NEUTROPHILS % 54.4 % (39.0-77.0); PLATELET COUNT 225 10^3/UL (140-415); RED BLOOD COUNT 3.28 10^6/ul (4.20-5.40); RED CELL DISTRIBUTION WIDTH 15.1 % (11.5-14.5)
[2017-06-06 06:36] LABS: ANION GAP 10 (8-16); BLOOD UREA NITROGEN 12 mg/dl (7-20); CARBON DIOXIDE 33 mmol/L (21-31); CHLORIDE 104 mmol/L (97-110); CREATININE 1.19 mg/dl (0.44-1.00); GLUCOSE 78 mg/dl (70-220); POTASSIUM 3.8 mmol/L (3.5-5.1); SODIUM 143 mmol/L (135-144)
[2017-06-06 06:41] LABS: INR 1.02; PROTIME 13.5 Sec (11.9-14.9); PT RATIO 1.1
[2017-06-06 06:44] LABS: PARTIAL THROMBOPLASTIN TIME 26.8 Sec (25.0-35.0)
[2017-06-06 07:06] LABS: ERYTHROCYTE SEDIMENTATION RATE 48 mm/Hr (0-20)
[2017-06-06] MEDS: LACTOBACILLUS RHAMNOSUS CAP PO ×2 (08:13→21:12)
[2017-06-06] MEDS: ESCITALOPRAM 10 MG TAB PO (08:13)
[2017-06-06] MEDS: FLUCONAZOLE 100 MG TAB PO (08:14)
[2017-06-06] MEDS: ZYVOX 600 MG TAB PO ×2 (08:14→21:12)
[2017-06-06] MEDS: oxyCODONE (CR) 10 MG TAB [oxyCONTIN] PO ×2 (08:14→21:12)
[2017-06-06] MEDS: MULTIVITAMINS THERAPEUTIC TAB PO (08:14)
[2017-06-06] MEDS: NYSTATIN 30 GM POWDER BTL TOP ×2 (08:15→21:13)
[2017-06-06] MEDS: CALAMINE/PRAMOXINE LOT 180 ML BTL TOP ×2 (08:16→21:14)
[2017-06-06] MEDS: BACITRACIN 0.9 GM OINT TOP (08:16)
[2017-06-06] MEDS: FLUOCINONIDE 0.05% 15 GM CR TOP ×2 (08:16→21:14)
[2017-06-06] MEDS: HEPARIN 5,000 UNIT/0.5 ML VIAL SC ×2 (08:32→21:16)
[2017-06-06] MEDS: SODIUM HYPOCHLORITE 1/40% 1L IRRIG IRR ×2 (09:00→21:15)
[2017-06-06] MEDS: ZOLPIDEM 5 MG TAB PO (23:08)
[2017-06-07] MEDS: DIPHENHYDRAMINE 25 MG CAP PO ×4 (02:49→20:55)
[2017-06-07] MEDS: DEXTROSE 5%-0.225% NACL 1,000 ML IV (02:50)
[2017-06-07] MEDS: PANTOPRAZOLE (EC) 40 MG TAB PO (06:03)
[2017-06-07] MEDS: HYDROmorphONE 0.5 MG/0.5 ML SYG IV ×3 (06:08→14:28)
[2017-06-07 06:25] LABS: HEMATOCRIT 29.3 % (37.0-47.0)
[2017-06-07 06:25] LABS: HEMOGLOBIN 9.2 g/dl (12.0-16.0)
[2017-06-07 06:44] LABS: ANION GAP 8 (8-16); BLOOD UREA NITROGEN 12 mg/dl (7-20); CALCIUM 8.3 mg/dl (8.4-10.2); CARBON DIOXIDE 34 mmol/L (21-31); CHLORIDE 105 mmol/L (97-110); CREATININE 1.18 mg/dl (0.44-1.00); GLUCOSE 80 mg/dl (70-220); POTASSIUM 4.2 mmol/L (3.5-5.1); SODIUM 143 mmol/L (135-144)
[2017-06-07 06:55] LABS: MAGNESIUM 1.8 mg/dl (1.7-2.5)
[2017-06-07] MEDS: FLUOCINONIDE 0.05% 15 GM CR TOP ×2 (09:00→20:56)
[2017-06-07] MEDS: CALAMINE/PRAMOXINE LOT 180 ML BTL TOP ×2 (09:00→20:56)
[2017-06-07] MEDS: SODIUM HYPOCHLORITE 1/40% 1L IRRIG IRR ×3 (10:31→21:00)
[2017-06-07] MEDS: ESCITALOPRAM 10 MG TAB PO (10:31)
[2017-06-07] MEDS: BACITRACIN 0.9 GM OINT TOP (10:31)
[2017-06-07] MEDS: LACTOBACILLUS RHAMNOSUS CAP PO ×2 (10:32→20:55)
[2017-06-07] MEDS: FLUCONAZOLE 100 MG TAB PO (10:32)
[2017-06-07] MEDS: oxyCODONE (CR) 10 MG TAB [oxyCONTIN] PO ×2 (10:32→20:55)
[2017-06-07] MEDS: ZYVOX 600 MG TAB PO ×2 (10:33→20:55)
[2017-06-07] MEDS: MULTIVITAMINS THERAPEUTIC TAB PO (10:33)
[2017-06-07] MEDS: NYSTATIN 30 GM POWDER BTL TOP ×2 (10:33→20:56)
[2017-06-07] MEDS: HEPARIN 5,000 UNIT/0.5 ML VIAL SC ×2 (10:36→20:58)
[2017-06-07] MEDS: METOCLOPRAMIDE 10 MG INJ IV (14:28)
[2017-06-07] MEDS: [UNRECOGNIZED DRUG - OTHER] ID (14:29)
[2017-06-07] MEDS: [UNRECOGNIZED DRUG - REMARK] XX (14:29)
[2017-06-08] MEDS: HYDROmorphONE 0.5 MG/0.5 ML SYG IV ×6 (01:31→23:28)
[2017-06-08] MEDS: DEXTROSE 5%-0.225% NACL 1,000 ML IV (01:42)
[2017-06-08] MEDS: DIPHENHYDRAMINE 25 MG CAP PO ×4 (02:30→20:00)
[2017-06-08] MEDS: PANTOPRAZOLE (EC) 40 MG TAB PO (05:01)
[2017-06-08] MEDS: CALAMINE/PRAMOXINE LOT 180 ML BTL TOP ×2 (09:00→20:07)
[2017-06-08] MEDS: FLUOCINONIDE 0.05% 15 GM CR TOP ×2 (09:00→20:07)
[2017-06-08] MEDS: METOCLOPRAMIDE 10 MG INJ IV (10:06)
[2017-06-08] MEDS: ESCITALOPRAM 10 MG TAB PO (10:07)
[2017-06-08] MEDS: LACTOBACILLUS RHAMNOSUS CAP PO ×2 (10:07→20:00)
[2017-06-08] MEDS: FLUCONAZOLE 100 MG TAB PO (10:07)
[2017-06-08] MEDS: MULTIVITAMINS THERAPEUTIC TAB PO (10:07)
[2017-06-08] MEDS: BACITRACIN 0.9 GM OINT TOP (10:07)
[2017-06-08] MEDS: ZYVOX 600 MG TAB PO ×2 (10:07→20:00)
[2017-06-08] MEDS: oxyCODONE (CR) 10 MG TAB [oxyCONTIN] PO ×2 (10:10→20:01)
[2017-06-08] MEDS: SODIUM HYPOCHLORITE 1/40% 1L IRRIG IRR ×2 (10:11→20:07)
[2017-06-08] MEDS: NYSTATIN 30 GM POWDER BTL TOP ×2 (10:11→20:08)
[2017-06-08] MEDS: HEPARIN 5,000 UNIT/0.5 ML VIAL SC ×2 (10:19→20:03)
[2017-06-09] MEDS: DEXTROSE 5%-0.225% NACL 1,000 ML IV ×2 (03:30→17:06)
[2017-06-09] MEDS: DIPHENHYDRAMINE 25 MG CAP PO ×4 (03:37→21:05)
[2017-06-09] MEDS: HYDROmorphONE 0.5 MG/0.5 ML SYG IV ×6 (03:38→22:23)
[2017-06-09] MEDS: PANTOPRAZOLE (EC) 40 MG TAB PO (05:51)
[2017-06-09 06:12] LABS: ADD MAN DIFF? NO
[2017-06-09 06:23] LABS: WHITE BLOOD COUNT 7.2 10^3/ul (4.8-10.8)
[2017-06-09 06:23] LABS: BASOPHILS % 0.6 % (0.0-2.0); EOSINOPHILS # 0.3 10^3/ul (0.0-0.5); EOSINOPHILS % 3.9 % (0.0-7.0); HEMATOCRIT 28.2 % (37.0-47.0); HEMOGLOBIN 8.7 g/dl (12.0-16.0); LYMPHOCYTES # 2.6 10^3/ul (0.8-2.9); LYMPHOCYTES % 35.7 % (15.0-51.0); MEAN CORPUSCULAR HEMOGLOBIN 28.2 pg (29.0-33.0); MEAN CORPUSCULAR HGB CONC 30.9 g/dl (32.0-37.0); MEAN CORPUSCULAR VOLUME 91.6 fl (82.0-101.0); MEAN PLATELET VOLUME 9.1 fl (7.4-10.4); MONOCYTE # 0.9 10^3/ul (0.3-0.9); MONOCYTES % 12.1 % (0.0-11.0); NEUTROPHIL # 3.4 10^3/ul (1.6-7.5); NEUTROPHILS % 47.3 % (39.0-77.0); PLATELET COUNT 206 10^3/UL (140-415); RED BLOOD COUNT 3.08 10^6/ul (4.20-5.40); RED CELL DISTRIBUTION WIDTH 14.7 % (11.5-14.5)
[2017-06-09 06:59] LABS: ANION GAP 12 (8-16); BLOOD UREA NITROGEN 14 mg/dl (7-20); CALCIUM 8.3 mg/dl (8.4-10.2); CARBON DIOXIDE 31 mmol/L (21-31); CHLORIDE 104 mmol/L (97-110); CREATININE 1.12 mg/dl (0.44-1.00); GLUCOSE 92 mg/dl (70-220); POTASSIUM 4.7 mmol/L (3.5-5.1); SODIUM 142 mmol/L (135-144)
[2017-06-09 07:04] LABS: ALANINE AMINOTRANSFERASE 37 IU/L (13-69); ALBUMIN 2.6 g/dl (3.3-4.9); ALBUMIN/GLOBULIN RATIO 1.04; ALKALINE PHOSPHATASE 86 IU/L (42-121); ANION GAP 11 (8-16); ASPARTATE AMINO TRANSFERASE 27 IU/L (15-46); BLOOD UREA NITROGEN 14 mg/dl (7-20); CALCIUM 8.3 mg/dl (8.4-10.2); CARBON DIOXIDE 31 mmol/L (21-31); CHLORIDE 105 mmol/L (97-110); GLUCOSE 91 mg/dl (70-220); POTASSIUM 4.8 mmol/L (3.5-5.1); SODIUM 142 mmol/L (135-144); TOTAL PROTEIN 5.1 g/dl (6.1-8.1)
[2017-06-09] MEDS: MULTIVITAMINS THERAPEUTIC TAB PO (08:48)
[2017-06-09] MEDS: LACTOBACILLUS RHAMNOSUS CAP PO ×2 (08:48→21:06)
[2017-06-09] MEDS: ZYVOX 600 MG TAB PO ×2 (08:48→21:05)
[2017-06-09] MEDS: FLUCONAZOLE 100 MG TAB PO (08:48)
[2017-06-09] MEDS: ESCITALOPRAM 10 MG TAB PO (08:48)
[2017-06-09] MEDS: HEPARIN 5,000 UNIT/0.5 ML VIAL SC ×2 (08:49→21:12)
[2017-06-09] MEDS: oxyCODONE (CR) 10 MG TAB [oxyCONTIN] PO ×2 (08:51→21:05)
[2017-06-09] MEDS: CALAMINE/PRAMOXINE LOT 180 ML BTL TOP ×2 (08:53→21:15)
[2017-06-09] MEDS: NYSTATIN 30 GM POWDER BTL TOP ×2 (08:53→21:07)
[2017-06-09] MEDS: FLUOCINONIDE 0.05% 15 GM CR TOP ×2 (08:54→21:15)
[2017-06-09] MEDS: SODIUM HYPOCHLORITE 1/40% 1L IRRIG IRR ×2 (08:54→21:08)
[2017-06-09] MEDS: BACITRACIN 0.9 GM OINT TOP (08:55)
[2017-06-10] MEDS: HYDROmorphONE 0.5 MG/0.5 ML SYG IV ×5 (03:04→20:35)
[2017-06-10] MEDS: DIPHENHYDRAMINE 25 MG CAP PO ×4 (03:09→20:34)
[2017-06-10] MEDS: PANTOPRAZOLE (EC) 40 MG TAB PO (05:52)
[2017-06-10] MEDS: FLUOCINONIDE 0.05% 15 GM CR TOP ×2 (09:00→20:35)
[2017-06-10] MEDS: BACITRACIN 0.9 GM OINT TOP (09:00)
[2017-06-10] MEDS: SODIUM HYPOCHLORITE 1/40% 1L IRRIG IRR ×2 (09:26→20:34)
[2017-06-10] MEDS: ESCITALOPRAM 10 MG TAB PO (09:26)
[2017-06-10] MEDS: LACTOBACILLUS RHAMNOSUS CAP PO ×2 (09:27→20:34)
[2017-06-10] MEDS: FLUCONAZOLE 100 MG TAB PO (09:27)
[2017-06-10] MEDS: MULTIVITAMINS THERAPEUTIC TAB PO (09:27)
[2017-06-10] MEDS: ZYVOX 600 MG TAB PO ×2 (09:27→20:34)
[2017-06-10] MEDS: NYSTATIN 30 GM POWDER BTL TOP ×2 (09:28→20:35)
[2017-06-10] MEDS: [UNRECOGNIZED DRUG - REMARK] XX (09:32)
[2017-06-10] MEDS: CALAMINE/PRAMOXINE LOT 180 ML BTL TOP ×2 (09:37→20:34)
[2017-06-10] MEDS: oxyCODONE (CR) 10 MG TAB [oxyCONTIN] PO ×2 (09:50→22:48)
[2017-06-10] MEDS: HEPARIN 5,000 UNIT/0.5 ML VIAL SC ×2 (09:58→20:41)
[2017-06-10] MEDS: [UNRECOGNIZED DRUG - REMARK] XX (22:48)
[2017-06-11] MEDS: HYDROmorphONE 0.5 MG/0.5 ML SYG IV ×6 (01:16→20:42)
[2017-06-11] MEDS: DIPHENHYDRAMINE 25 MG CAP PO ×4 (03:00→20:35)
[2017-06-11] MEDS: DEXTROSE 5%-0.225% NACL 1,000 ML IV (03:13)
[2017-06-11] MEDS: PANTOPRAZOLE (EC) 40 MG TAB PO (05:04)
[2017-06-11 05:39] LABS: ADD MAN DIFF? NO
[2017-06-11 05:45] LABS: BASOPHILS % 0.3 % (0.0-2.0); EOSINOPHILS # 0.3 10^3/ul (0.0-0.5); EOSINOPHILS % 3.2 % (0.0-7.0); HEMATOCRIT 25.1 % (37.0-47.0); HEMOGLOBIN 7.9 g/dl (12.0-16.0); LYMPHOCYTES # 2.6 10^3/ul (0.8-2.9); LYMPHOCYTES % 32.9 % (15.0-51.0); MEAN CORPUSCULAR HEMOGLOBIN 28.2 pg (29.0-33.0); MEAN CORPUSCULAR HGB CONC 31.5 g/dl (32.0-37.0); MEAN CORPUSCULAR VOLUME 89.6 fl (82.0-101.0); MEAN PLATELET VOLUME 9.5 fl (7.4-10.4); MONOCYTE # 1.1 10^3/ul (0.3-0.9); MONOCYTES % 13.6 % (0.0-11.0); NEUTROPHIL # 3.9 10^3/ul (1.6-7.5); NEUTROPHILS % 49.5 % (39.0-77.0); PLATELET COUNT 257 10^3/UL (140-415); RED CELL DISTRIBUTION WIDTH 14.9 % (11.5-14.5)
[2017-06-11 05:45] LABS: WHITE BLOOD COUNT 7.9 10^3/ul (4.8-10.8)
[2017-06-11] MEDS ORDERED: LEVOFLOXACIN 500 MG TAB GTB (06:00)
[2017-06-11 06:39] LABS: ANION GAP 14 (8-16); BLOOD UREA NITROGEN 13 mg/dl (7-20); CARBON DIOXIDE 29 mmol/L (21-31); CHLORIDE 102 mmol/L (97-110); CREATININE 1.12 mg/dl (0.44-1.00); GLUCOSE 90 mg/dl (70-220); POTASSIUM 4.6 mmol/L (3.5-5.1); SODIUM 140 mmol/L (135-144)
[2017-06-11 08:24] LABS: C-REACTIVE PROTEIN 3.9 mg/dl (0.0-0.9)
[2017-06-11] MEDS: BACITRACIN 0.9 GM OINT TOP (09:00)
[2017-06-11] MEDS: LACTOBACILLUS RHAMNOSUS CAP PO ×2 (09:53→20:35)
[2017-06-11] MEDS: MULTIVITAMINS THERAPEUTIC TAB PO (09:53)
[2017-06-11] MEDS: ESCITALOPRAM 10 MG TAB PO (09:53)
[2017-06-11] MEDS: oxyCODONE (CR) 10 MG TAB [oxyCONTIN] PO ×2 (09:54→22:31)
[2017-06-11] MEDS: FLUCONAZOLE 100 MG TAB PO (09:54)
[2017-06-11] MEDS: HEPARIN 5,000 UNIT/0.5 ML VIAL SC ×2 (10:04→20:46)
[2017-06-11] MEDS: CALAMINE/PRAMOXINE LOT 180 ML BTL TOP ×2 (10:07→20:35)
[2017-06-11] MEDS: NYSTATIN 30 GM POWDER BTL TOP ×2 (10:07→20:46)
[2017-06-11] MEDS: SODIUM HYPOCHLORITE 1/40% 1L IRRIG IRR ×2 (10:08→20:36)
[2017-06-11] MEDS: ZYVOX 600 MG TAB PO ×2 (10:10→20:35)
[2017-06-12] MEDS: HYDROmorphONE 0.5 MG/0.5 ML SYG IV ×6 (00:51→23:23)
[2017-06-12] MEDS: DEXTROSE 5%-0.225% NACL 1,000 ML IV ×2 (01:44→03:30)
[2017-06-12] MEDS: DIPHENHYDRAMINE 25 MG CAP PO ×4 (03:00→20:30)
[2017-06-12] MEDS: PANTOPRAZOLE (EC) 40 MG TAB PO (05:17)
[2017-06-12 06:58] LABS: ADD MAN DIFF? NO
[2017-06-12 07:04] LABS: WHITE BLOOD COUNT 5.7 10^3/ul (4.8-10.8)
[2017-06-12 07:04] LABS: BASOPHILS % 0.7 % (0.0-2.0); EOSINOPHILS # 0.2 10^3/ul (0.0-0.5); EOSINOPHILS % 4.2 % (0.0-7.0); HEMOGLOBIN 8.8 g/dl (12.0-16.0); LYMPHOCYTES # 1.6 10^3/ul (0.8-2.9); MEAN CORPUSCULAR HEMOGLOBIN 28.3 pg (29.0-33.0); MEAN CORPUSCULAR HGB CONC 31.4 g/dl (32.0-37.0); MEAN PLATELET VOLUME 9.1 fl (7.4-10.4); MONOCYTES % 16.6 % (0.0-11.0); NEUTROPHIL # 2.9 10^3/ul (1.6-7.5); NEUTROPHILS % 49.8 % (39.0-77.0); PLATELET COUNT 238 10^3/UL (140-415); RED BLOOD COUNT 3.11 10^6/ul (4.20-5.40); RED CELL DISTRIBUTION WIDTH 15.3 % (11.5-14.5)
[2017-06-12 07:30] LABS: ANION GAP 14 (8-16); BLOOD UREA NITROGEN 12 mg/dl (7-20); CALCIUM 8.6 mg/dl (8.4-10.2); CARBON DIOXIDE 26 mmol/L (21-31); CHLORIDE 104 mmol/L (97-110); CREATININE 1.15 mg/dl (0.44-1.00); GLUCOSE 141 mg/dl (70-220); MAGNESIUM 1.6 mg/dl (1.7-2.5); POTASSIUM 4.3 mmol/L (3.5-5.1); SODIUM 140 mmol/L (135-144)
[2017-06-12 08:46] LABS: ERYTHROCYTE SEDIMENTATION RATE 70 mm/Hr (0-20)
[2017-06-12] MEDS: BACITRACIN 0.9 GM OINT TOP ×2 (09:00→09:24)
[2017-06-12] MEDS: SODIUM HYPOCHLORITE 1/40% 1L IRRIG IRR ×2 (09:19→20:31)
[2017-06-12] MEDS: NYSTATIN 30 GM POWDER BTL TOP ×2 (09:20→20:32)
[2017-06-12] MEDS: CALAMINE/PRAMOXINE LOT 180 ML BTL TOP ×2 (09:20→20:31)
[2017-06-12] MEDS: MULTIVITAMINS THERAPEUTIC TAB PO (09:20)
[2017-06-12] MEDS: oxyCODONE (CR) 10 MG TAB [oxyCONTIN] PO ×2 (09:20→20:30)
[2017-06-12] MEDS: ZYVOX 600 MG TAB PO ×2 (09:21→20:30)
[2017-06-12] MEDS: ESCITALOPRAM 10 MG TAB PO (09:21)
[2017-06-12] MEDS: LACTOBACILLUS RHAMNOSUS CAP PO ×2 (09:21→20:30)
[2017-06-12] MEDS: FLUCONAZOLE 100 MG TAB PO (09:21)
[2017-06-12] MEDS: HEPARIN 5,000 UNIT/0.5 ML VIAL SC ×2 (09:24→20:38)
[2017-06-12] MEDS: MAGNESIUM SULFATE 3 GM in DEXTROSE 5% 100 ML IVPB (10:31)
[2017-06-12 17:06] LABS: ADD UMIC NO; UR ASCORBIC ACID NEGATIVE (NEGATIVE); UR BACTERIA FEW /HPF (NONE SEEN); UR BILIRUBIN (Dip) NEGATIVE (NEGATIVE); UR BLOOD (Dip) NEGATIVE (NEGATIVE); UR CLARITY SLIGHTLY CLOUDY (CLEAR); UR COLOR YELLOW (YELLOW); UR GLUCOSE (Dip) NEGATIVE (NEGATIVE); UR KETONES (Dip) NEGATIVE (NEGATIVE); UR LEUKOCYTE ESTERASE (Dip) NEGATIVE Leu/ul (NEGATIVE); UR NITRITE (Dip) NEGATIVE (NEGATIVE); UR RBC 1 /HPF (0-5); UR SPECIFIC GRAVITY (Dip) 1.009 (1.003-1.030); UR TOTAL PROTEIN (Dip) NEGATIVE (NEGATIVE); UR UROBILINOGEN (Dip) NEGATIVE (NEGATIVE); UR WBC 3 /HPF (0-5)
[2017-06-12] MEDS: CEFTRIAXONE 2 GM/50 ML (PMX) 50 ML IVPB (18:13)
[2017-06-13] MEDS: HYDROmorphONE 0.5 MG/0.5 ML SYG IV ×7 (02:18→20:45)
[2017-06-13] MEDS: DIPHENHYDRAMINE 25 MG CAP PO ×4 (02:42→20:44)
[2017-06-13] MEDS: DEXTROSE 5%-0.225% NACL 1,000 ML IV ×2 (03:30→20:44)
[2017-06-13] MEDS: PANTOPRAZOLE (EC) 40 MG TAB PO (05:30)
[2017-06-13 07:27] LABS: ADD MAN DIFF? NO
[2017-06-13 07:37] LABS: ABNORMAL IP MESSAGE 1; BASOPHILS % 0.5 % (0.0-2.0); EOSINOPHILS # 0.4 10^3/ul (0.0-0.5); EOSINOPHILS % 6.7 % (0.0-7.0); HEMATOCRIT 27.4 % (37.0-47.0); HEMOGLOBIN 8.8 g/dl (12.0-16.0); LYMPHOCYTES # 1.5 10^3/ul (0.8-2.9); LYMPHOCYTES % 23.7 % (15.0-51.0); MEAN CORPUSCULAR HEMOGLOBIN 28.9 pg (29.0-33.0); MEAN CORPUSCULAR HGB CONC 32.1 g/dl (32.0-37.0); MEAN CORPUSCULAR VOLUME 89.8 fl (82.0-101.0); MEAN PLATELET VOLUME 9.3 fl (7.4-10.4); MONOCYTES % 16.2 % (0.0-11.0); NEUTROPHIL # 3.3 10^3/ul (1.6-7.5); NEUTROPHILS % 52.4 % (39.0-77.0); PLATELET COUNT 270 10^3/UL (140-415); RED BLOOD COUNT 3.05 10^6/ul (4.20-5.40)
[2017-06-13 07:37] LABS: WHITE BLOOD COUNT 6.3 10^3/ul (4.8-10.8)
[2017-06-13 08:12] LABS: ALANINE AMINOTRANSFERASE 26 IU/L (13-69); ALBUMIN 3.3 g/dl (3.3-4.9); ALKALINE PHOSPHATASE 99 IU/L (42-121); ANION GAP 18 (8-16); ASPARTATE AMINO TRANSFERASE 15 IU/L (15-46); BILIRUBIN,INDIRECT 0.1 mg/dl (0-1.1); BILIRUBIN,TOTAL 0.1 mg/dl (0.2-1.3); BLOOD UREA NITROGEN 10 mg/dl (7-20); CALCIUM 8.7 mg/dl (8.4-10.2); CARBON DIOXIDE 26 mmol/L (21-31); CHLORIDE 104 mmol/L (97-110); CREATININE 1.07 mg/dl (0.44-1.00); GLUCOSE 83 mg/dl (70-220); MAGNESIUM 2.3 mg/dl (1.7-2.5); POTASSIUM 4.5 mmol/L (3.5-5.1); SODIUM 143 mmol/L (135-144); TOTAL PROTEIN 6.6 g/dl (6.1-8.1)
[2017-06-13 08:16] LABS: POSITIVE DIFF @See below
[2017-06-13] MEDS: FLUCONAZOLE 100 MG TAB PO (08:52)
[2017-06-13] MEDS: LACTOBACILLUS RHAMNOSUS CAP PO ×2 (08:52→20:44)
[2017-06-13] MEDS: oxyCODONE (CR) 10 MG TAB [oxyCONTIN] PO ×2 (08:53→22:11)
[2017-06-13] MEDS: ZYVOX 600 MG TAB PO ×2 (08:53→20:44)
[2017-06-13] MEDS: MULTIVITAMINS THERAPEUTIC TAB PO (08:53)
[2017-06-13] MEDS: ESCITALOPRAM 10 MG TAB PO (08:53)
[2017-06-13] MEDS: BACITRACIN 0.9 GM OINT TOP (08:55)
[2017-06-13] MEDS: SODIUM HYPOCHLORITE 1/40% 1L IRRIG IRR ×2 (08:57→20:55)
[2017-06-13] MEDS: NYSTATIN 30 GM POWDER BTL TOP ×2 (08:57→20:55)
[2017-06-13] MEDS: CALAMINE/PRAMOXINE LOT 180 ML BTL TOP ×2 (08:57→20:56)
[2017-06-13] MEDS: HEPARIN 5,000 UNIT/0.5 ML VIAL SC ×2 (09:59→20:54)
[2017-06-13] MEDS: CEFTRIAXONE 2 GM/50 ML (PMX) 50 ML IVPB (17:33)
[2017-06-13] MEDS: ZOLPIDEM 5 MG TAB PO (22:11)
[2017-06-14] MEDS: HYDROmorphONE 0.5 MG/0.5 ML SYG IV ×3 (02:39→09:25)
[2017-06-14] MEDS: DIPHENHYDRAMINE 25 MG CAP PO ×5 (02:46→21:00)
[2017-06-14] MEDS: DEXTROSE 5%-0.225% NACL 1,000 ML IV (03:30)
[2017-06-14] MEDS: PANTOPRAZOLE (EC) 40 MG TAB PO (06:00)
[2017-06-14 06:03] LABS: ADD MAN DIFF? NO
[2017-06-14 06:08] LABS: BASOPHILS % 0.4 % (0.0-2.0); EOSINOPHILS % 0.2 % (0.0-7.0); HEMATOCRIT 25.6 % (37.0-47.0); HEMOGLOBIN 8.4 g/dl (12.0-16.0); LYMPHOCYTES # 1.1 10^3/ul (0.8-2.9); LYMPHOCYTES % 24.6 % (15.0-51.0); MEAN CORPUSCULAR HEMOGLOBIN 28.6 pg (29.0-33.0); MEAN CORPUSCULAR HGB CONC 32.8 g/dl (32.0-37.0); MEAN CORPUSCULAR VOLUME 87.1 fl (82.0-101.0); MEAN PLATELET VOLUME 9.1 fl (7.4-10.4); MONOCYTE # 0.7 10^3/ul (0.3-0.9); MONOCYTES % 14.8 % (0.0-11.0); NEUTROPHIL # 2.7 10^3/ul (1.6-7.5); NEUTROPHILS % 59.3 % (39.0-77.0); PLATELET COUNT 237 10^3/UL (140-415); RED BLOOD COUNT 2.94 10^6/ul (4.20-5.40); RED CELL DISTRIBUTION WIDTH 16.8 % (11.5-14.5)
[2017-06-14 06:08] LABS: WHITE BLOOD COUNT 4.5 10^3/ul (4.8-10.8)
[2017-06-14 06:34] LABS: ALANINE AMINOTRANSFERASE 27 IU/L (13-69); ALBUMIN 3.3 g/dl (3.3-4.9); ALBUMIN/GLOBULIN RATIO 1.06; ALKALINE PHOSPHATASE 121 IU/L (42-121); ANION GAP 18 (8-16); ASPARTATE AMINO TRANSFERASE 21 IU/L (15-46); BLOOD UREA NITROGEN 8 mg/dl (7-20); CALCIUM 8.4 mg/dl (8.4-10.2); CARBON DIOXIDE 21 mmol/L (21-31); CHLORIDE 102 mmol/L (97-110); CREATININE 1.04 mg/dl (0.44-1.00); GLUCOSE 96 mg/dl (70-220); MAGNESIUM 1.9 mg/dl (1.7-2.5); POTASSIUM 3.8 mmol/L (3.5-5.1); SODIUM 137 mmol/L (135-144); TOTAL PROTEIN 6.4 g/dl (6.1-8.1)
[2017-06-14] MEDS ORDERED: ROCURONIUM 50 MG INJ ×2 (07:00→10:40)
[2017-06-14] MEDS: SODIUM HYPOCHLORITE 1/40% 1L IRRIG IRR ×4 (08:15→20:19)
[2017-06-14] MEDS: LACTOBACILLUS RHAMNOSUS CAP PO ×2 (08:15→21:00)
[2017-06-14] MEDS: FLUCONAZOLE 100 MG TAB PO (08:15)
[2017-06-14] MEDS: oxyCODONE (CR) 10 MG TAB [oxyCONTIN] PO ×2 (08:16→21:00)
[2017-06-14] MEDS: MULTIVITAMINS THERAPEUTIC TAB PO (08:16)
[2017-06-14] MEDS: ESCITALOPRAM 10 MG TAB PO (08:16)
[2017-06-14] MEDS: ZYVOX 600 MG TAB PO ×2 (08:16→21:00)
[2017-06-14] MEDS: HEPARIN 5,000 UNIT/0.5 ML VIAL SC ×2 (09:00→21:00)
[2017-06-14] MEDS: BACITRACIN 0.9 GM OINT TOP (09:23)
[2017-06-14] MEDS: NYSTATIN 30 GM POWDER BTL TOP ×2 (09:24→21:00)
[2017-06-14] MEDS: CALAMINE/PRAMOXINE LOT 180 ML BTL TOP ×2 (09:24→21:00)
[2017-06-14] MEDS ORDERED: MIDAZOLAM 1 MG/ML 2 ML INJ (10:38)
[2017-06-14] MEDS ORDERED: LIDOCAINE 2% (SDV) 5 ML INJ (10:39)
[2017-06-14] MEDS ORDERED: FENTAnyl 50 MCG/ML VIAL ×2 (10:39→15:10)
[2017-06-14] MEDS ORDERED: PROPOFOL 20 ML (10:39)
[2017-06-14] MEDS ORDERED: SUCCINYLCHOLINE CHLORIDE 100 MG/5 ML SYG IV (10:40)
[2017-06-14] MEDS ORDERED: ONDANSETRON 4 MG INJ (10:41)
[2017-06-14] MEDS ORDERED: METOCLOPRAMIDE 10 MG INJ (10:42)
[2017-06-14] MEDS: CEFTAZIDIME 1GM/50 ML (PMX) 50 ML IVPB ×2 (11:58→20:13)
[2017-06-14] MEDS ORDERED: FENTAnyl 50 MCG/ML VIAL IV (14:30)
[2017-06-14] MEDS ORDERED: MEPERIDINE 25 MG INJ IV (14:30)
[2017-06-14] MEDS ORDERED: ONDANSETRON 4 MG INJ IV (14:30)
[2017-06-14] MEDS ORDERED: HYDROmorphONE (0.2 MG/ML) 10ML SYG IV (14:30)
[2017-06-14] MEDS: SODIUM CHLORIDE 0.9% 1L IRRIG IRR (14:32)
[2017-06-14] MEDS ORDERED: PHENYLephrine (100 MCG/ML) 5ML SYG (14:47)
[2017-06-14] MEDS ORDERED: LIDOCAINE 1%/EPI 30 ML INJ (14:53)
[2017-06-14] MEDS ORDERED: BUPIVACAINE 0.25% (MPF) 30 ML INJ (14:53)
[2017-06-14] MEDS: LIDOCAINE 1%/EPI 30 ML INJ INJ (14:57)
[2017-06-14] MEDS: BUPIVACAINE 0.25% (MPF) 30 ML INJ INJ (14:57)
[2017-06-14] MEDS: LINEZOLID 600 MG/D5W (PMX) 300 ML IVPB (15:00)
[2017-06-14] MEDS ORDERED: BUPIVACAINE 0.5% (SDV) 30 ML INJ (15:41)
[2017-06-14] MEDS ORDERED: MUPIROCIN 2% 15 GM CR (15:43)
[2017-06-14] MEDS: MUPIROCIN 2% 15 GM CR TOP (16:13)
[2017-06-14] MEDS ORDERED: SUGAMMADEX SODIUM 200 MG/2 ML VIAL IV (16:15)
[2017-06-14] MEDS ORDERED: KETOROLAC 30 MG INJ (16:16)
[2017-06-14] MEDS: METOCLOPRAMIDE 10 MG INJ IV (16:50)
[2017-06-14] MEDS: HYDROmorphONE (0.2 MG/ML) 10ML SYG IV (16:51)
[2017-06-14] MEDS: DIPHENHYDRAMINE 50 MG INJ IV (16:55)
[2017-06-14] MEDS: FENTAnyl 50 MCG/ML VIAL IV (17:03)
[2017-06-14] MEDS ORDERED: LORAZEPAM 2 MG INJ (17:06)
[2017-06-14] MEDS: LORAZEPAM 2 MG INJ IV (17:12)
[2017-06-15] MEDS: DIPHENHYDRAMINE 25 MG CAP PO ×4 (03:00→20:39)
[2017-06-15] MEDS: DEXTROSE 5%-0.225% NACL 1,000 ML IV ×2 (03:30→05:56)
[2017-06-15] MEDS: CEFTAZIDIME 1GM/50 ML (PMX) 50 ML IVPB ×3 (04:57→20:38)
[2017-06-15] MEDS: PANTOPRAZOLE (EC) 40 MG TAB PO (05:51)
[2017-06-15 06:00] LABS: ADD MAN DIFF? NO
[2017-06-15 06:06] LABS: BASOPHILS % 0.2 % (0.0-2.0); EOSINOPHILS # 0.1 10^3/ul (0.0-0.5); EOSINOPHILS % 1.9 % (0.0-7.0); HEMATOCRIT 25.8 % (37.0-47.0); HEMOGLOBIN 8.2 g/dl (12.0-16.0); LYMPHOCYTES # 0.8 10^3/ul (0.8-2.9); LYMPHOCYTES % 18.8 % (15.0-51.0); MEAN CORPUSCULAR HEMOGLOBIN 28.8 pg (29.0-33.0); MEAN CORPUSCULAR HGB CONC 31.8 g/dl (32.0-37.0); MEAN CORPUSCULAR VOLUME 90.5 fl (82.0-101.0); MONOCYTE # 0.7 10^3/ul (0.3-0.9); MONOCYTES % 15.4 % (0.0-11.0); NEUTROPHIL # 2.7 10^3/ul (1.6-7.5); NEUTROPHILS % 63.2 % (39.0-77.0); PLATELET COUNT 182 10^3/UL (140-415); RED BLOOD COUNT 2.85 10^6/ul (4.20-5.40); RED CELL DISTRIBUTION WIDTH 16.9 % (11.5-14.5)
[2017-06-15 06:06] LABS: WHITE BLOOD COUNT 4.2 10^3/ul (4.8-10.8)
[2017-06-15 06:22] LABS: ANION GAP 17 (8-16); BLOOD UREA NITROGEN 9 mg/dl (7-20); CALCIUM 8.1 mg/dl (8.4-10.2); CARBON DIOXIDE 22 mmol/L (21-31); CHLORIDE 105 mmol/L (97-110); CREATININE 1.05 mg/dl (0.44-1.00); GLUCOSE 88 mg/dl (70-220); MAGNESIUM 1.9 mg/dl (1.7-2.5); POTASSIUM 3.5 mmol/L (3.5-5.1); SODIUM 140 mmol/L (135-144)
[2017-06-15] MEDS: SODIUM HYPOCHLORITE 1/40% 1L IRRIG IRR ×3 (09:00→20:39)
[2017-06-15] MEDS: HEPARIN 5,000 UNIT/0.5 ML VIAL SC ×3 (09:00→20:40)
[2017-06-15] MEDS: BACITRACIN 0.9 GM OINT TOP ×2 (09:00→13:44)
[2017-06-15] MEDS: ZYVOX 600 MG TAB PO ×2 (09:19→20:39)
[2017-06-15] MEDS: MULTIVITAMINS THERAPEUTIC TAB PO (09:19)
[2017-06-15] MEDS: FLUCONAZOLE 100 MG TAB PO (09:19)
[2017-06-15] MEDS: ESCITALOPRAM 10 MG TAB PO (09:19)
[2017-06-15] MEDS: LACTOBACILLUS RHAMNOSUS CAP PO ×2 (09:19→20:39)
[2017-06-15] MEDS: NYSTATIN 30 GM POWDER BTL TOP ×2 (09:20→20:42)
[2017-06-15] MEDS: oxyCODONE (CR) 10 MG TAB [oxyCONTIN] PO ×2 (09:20→20:42)
[2017-06-15] MEDS: CALAMINE/PRAMOXINE LOT 180 ML BTL TOP ×2 (09:20→20:42)
[2017-06-15] MEDS: HYDROmorphONE 0.5 MG/0.5 ML SYG IV ×2 (12:12→18:29)
[2017-06-16] MEDS: HYDROmorphONE 0.5 MG/0.5 ML SYG IV ×6 (00:14→20:08)
[2017-06-16] MEDS: DIPHENHYDRAMINE 25 MG CAP PO ×4 (03:00→21:35)
[2017-06-16] MEDS: DEXTROSE 5%-0.225% NACL 1,000 ML IV (03:30)
[2017-06-16] MEDS: CEFTAZIDIME 1GM/50 ML (PMX) 50 ML IVPB ×3 (04:48→19:47)
[2017-06-16] MEDS: SOD CHLORIDE 0.9% 500 ML IV (04:51)
[2017-06-16] MEDS: PANTOPRAZOLE (EC) 40 MG TAB PO (05:51)
[2017-06-16] MEDS: NYSTATIN 30 GM POWDER BTL TOP ×2 (09:28→21:36)
[2017-06-16] MEDS: CALAMINE/PRAMOXINE LOT 180 ML BTL TOP ×2 (09:28→21:35)
[2017-06-16] MEDS: SODIUM HYPOCHLORITE 1/40% 1L IRRIG IRR ×3 (09:28→21:00)
[2017-06-16] MEDS: ESCITALOPRAM 10 MG TAB PO (09:29)
[2017-06-16] MEDS: LACTOBACILLUS RHAMNOSUS CAP PO ×2 (09:29→21:35)
[2017-06-16] MEDS: MULTIVITAMINS THERAPEUTIC TAB PO (09:29)
[2017-06-16] MEDS: BACITRACIN 0.9 GM OINT TOP (09:29)
[2017-06-16] MEDS: oxyCODONE (CR) 10 MG TAB [oxyCONTIN] PO ×2 (09:30→21:35)
[2017-06-16] MEDS: ZYVOX 600 MG TAB PO ×2 (09:30→21:35)
[2017-06-16] MEDS: FLUCONAZOLE 100 MG TAB PO (09:30)
[2017-06-16] MEDS: HEPARIN 5,000 UNIT/0.5 ML VIAL SC ×2 (09:42→21:59)
[2017-06-16 10:57] LABS: ADD MAN DIFF? NO
[2017-06-16 11:03] LABS: BASOPHILS % 0.5 % (0.0-2.0); EOSINOPHILS # 0.2 10^3/ul (0.0-0.5); EOSINOPHILS % 3.7 % (0.0-7.0); HEMATOCRIT 24.3 % (37.0-47.0); HEMOGLOBIN 7.6 g/dl (12.0-16.0); LYMPHOCYTES # 1.2 10^3/ul (0.8-2.9); LYMPHOCYTES % 30.8 % (15.0-51.0); MEAN CORPUSCULAR HEMOGLOBIN 28.3 pg (29.0-33.0); MEAN CORPUSCULAR HGB CONC 31.3 g/dl (32.0-37.0); MEAN CORPUSCULAR VOLUME 90.3 fl (82.0-101.0); MEAN PLATELET VOLUME 9.4 fl (7.4-10.4); MONOCYTE # 0.9 10^3/ul (0.3-0.9); MONOCYTES % 22.1 % (0.0-11.0); NEUTROPHIL # 1.7 10^3/ul (1.6-7.5); NEUTROPHILS % 42.4 % (39.0-77.0); PLATELET COUNT 217 10^3/UL (140-415); RED BLOOD COUNT 2.69 10^6/ul (4.20-5.40)
[2017-06-16 12:13] LABS: ERYTHROCYTE SEDIMENTATION RATE 80 mm/Hr (0-20)
[2017-06-16 13:42] LABS: HEMATOCRIT 23.9 % (37.0-47.0); HEMOGLOBIN 7.5 g/dl (12.0-16.0)
[2017-06-17 00:22] LABS: IMMEDIATE SPIN CROSSMATCH 1 1
[2017-06-17] MEDS: HYDROmorphONE 0.5 MG/0.5 ML SYG IV ×8 (00:23→23:17)
[2017-06-17] MEDS: DIPHENHYDRAMINE 25 MG CAP PO ×4 (03:00→21:17)
[2017-06-17] MEDS: DEXTROSE 5%-0.225% NACL 1,000 ML IV ×2 (03:30→18:51)
[2017-06-17] MEDS: CEFTAZIDIME 1GM/50 ML (PMX) 50 ML IVPB ×3 (04:38→19:57)
[2017-06-17] MEDS: PANTOPRAZOLE (EC) 40 MG TAB PO (05:55)
[2017-06-17 06:14] LABS: ADD MAN DIFF? NO
[2017-06-17 06:24] LABS: BASOPHILS % 0.5 % (0.0-2.0); EOSINOPHILS # 0.2 10^3/ul (0.0-0.5); EOSINOPHILS % 4.8 % (0.0-7.0); HEMATOCRIT 25.5 % (37.0-47.0); HEMOGLOBIN 8.3 g/dl (12.0-16.0); LYMPHOCYTES # 1.3 10^3/ul (0.8-2.9); LYMPHOCYTES % 34.1 % (15.0-51.0); MEAN CORPUSCULAR HEMOGLOBIN 29.4 pg (29.0-33.0); MEAN CORPUSCULAR HGB CONC 32.5 g/dl (32.0-37.0); MEAN CORPUSCULAR VOLUME 90.4 fl (82.0-101.0); MEAN PLATELET VOLUME 9.2 fl (7.4-10.4); MONOCYTE # 0.7 10^3/ul (0.3-0.9); MONOCYTES % 17.8 % (0.0-11.0); NEUTROPHIL # 1.7 10^3/ul (1.6-7.5); NEUTROPHILS % 42.3 % (39.0-77.0); PLATELET COUNT 234 10^3/UL (140-415); RED BLOOD COUNT 2.82 10^6/ul (4.20-5.40); RED CELL DISTRIBUTION WIDTH 15.9 % (11.5-14.5)
[2017-06-17 06:24] LABS: WHITE BLOOD COUNT 3.9 10^3/ul (4.8-10.8)
[2017-06-17 07:01] LABS: ANION GAP 13 (8-16); BLOOD UREA NITROGEN 8 mg/dl (7-20); CALCIUM 8.2 mg/dl (8.4-10.2); CARBON DIOXIDE 26 mmol/L (21-31); CHLORIDE 107 mmol/L (97-110); CREATININE 0.76 mg/dl (0.44-1.00); GLUCOSE 90 mg/dl (70-220); POTASSIUM 4.2 mmol/L (3.5-5.1); SODIUM 142 mmol/L (135-144)
[2017-06-17] MEDS: SODIUM HYPOCHLORITE 1/40% 1L IRRIG IRR ×4 (09:00→21:21)
[2017-06-17] MEDS: BACITRACIN 0.9 GM OINT TOP (09:00)
[2017-06-17] MEDS: HEPARIN 5,000 UNIT/0.5 ML VIAL SC ×3 (09:00→21:26)
[2017-06-17] MEDS: CALAMINE/PRAMOXINE LOT 180 ML BTL TOP (09:00)
[2017-06-17] MEDS: oxyCODONE (CR) 10 MG TAB [oxyCONTIN] PO ×2 (09:24→21:00)
[2017-06-17] MEDS: LACTOBACILLUS RHAMNOSUS CAP PO ×2 (09:25→21:17)
[2017-06-17] MEDS: ZYVOX 600 MG TAB PO ×2 (09:25→21:17)
[2017-06-17] MEDS: FLUCONAZOLE 100 MG TAB PO (09:25)
[2017-06-17] MEDS: ESCITALOPRAM 10 MG TAB PO (09:25)
[2017-06-17] MEDS: MULTIVITAMINS THERAPEUTIC TAB PO (09:25)
[2017-06-17] MEDS: NYSTATIN 30 GM POWDER BTL TOP ×2 (13:46→21:16)
[2017-06-18] MEDS: DIPHENHYDRAMINE 25 MG CAP PO ×4 (02:25→20:59)
[2017-06-18] MEDS: oxyCODONE (CR) 10 MG TAB [oxyCONTIN] PO ×3 (02:26→20:59)
[2017-06-18] MEDS: HYDROmorphONE 0.5 MG/0.5 ML SYG IV ×8 (02:27→22:09)
[2017-06-18] MEDS: DEXTROSE 5%-0.225% NACL 1,000 ML IV (03:30)
[2017-06-18] MEDS: CEFTAZIDIME 1GM/50 ML (PMX) 50 ML IVPB ×3 (04:03→21:01)
[2017-06-18] MEDS: PANTOPRAZOLE (EC) 40 MG TAB PO (05:42)
[2017-06-18 06:13] LABS: ADD MAN DIFF? NO
[2017-06-18 06:23] LABS: WHITE BLOOD COUNT 4.1 10^3/ul (4.8-10.8)
[2017-06-18 06:23] LABS: BASOPHILS % 0.7 % (0.0-2.0); EOSINOPHILS # 0.2 10^3/ul (0.0-0.5); EOSINOPHILS % 5.6 % (0.0-7.0); HEMATOCRIT 27.5 % (37.0-47.0); HEMOGLOBIN 8.8 g/dl (12.0-16.0); LYMPHOCYTES # 1.5 10^3/ul (0.8-2.9); LYMPHOCYTES % 36.9 % (15.0-51.0); MEAN CORPUSCULAR HEMOGLOBIN 28.9 pg (29.0-33.0); MEAN CORPUSCULAR VOLUME 90.5 fl (82.0-101.0); MEAN PLATELET VOLUME 9.1 fl (7.4-10.4); MONOCYTE # 0.5 10^3/ul (0.3-0.9); MONOCYTES % 12.4 % (0.0-11.0); NEUTROPHIL # 1.8 10^3/ul (1.6-7.5); NEUTROPHILS % 43.9 % (39.0-77.0); PLATELET COUNT 263 10^3/UL (140-415); RED BLOOD COUNT 3.04 10^6/ul (4.20-5.40); RED CELL DISTRIBUTION WIDTH 16.5 % (11.5-14.5)
[2017-06-18 06:42] LABS: ALANINE AMINOTRANSFERASE 24 IU/L (13-69); ALBUMIN 2.8 g/dl (3.3-4.9); ALBUMIN/GLOBULIN RATIO 0.87; ALKALINE PHOSPHATASE 86 IU/L (42-121); ANION GAP 14 (8-16); ASPARTATE AMINO TRANSFERASE 12 IU/L (15-46); BLOOD UREA NITROGEN 6 mg/dl (7-20); CALCIUM 8.6 mg/dl (8.4-10.2); CARBON DIOXIDE 25 mmol/L (21-31); CHLORIDE 107 mmol/L (97-110); CREATININE 0.71 mg/dl (0.44-1.00); GLUCOSE 99 mg/dl (70-220); MAGNESIUM 1.7 mg/dl (1.7-2.5); POTASSIUM 4.3 mmol/L (3.5-5.1); SODIUM 142 mmol/L (135-144)
[2017-06-18] MEDS: LACTOBACILLUS RHAMNOSUS CAP PO ×2 (08:15→21:00)
[2017-06-18] MEDS: FLUCONAZOLE 100 MG TAB PO (08:15)
[2017-06-18] MEDS: MULTIVITAMINS THERAPEUTIC TAB PO (08:15)
[2017-06-18] MEDS: ZYVOX 600 MG TAB PO ×2 (08:15→21:00)
[2017-06-18] MEDS: ESCITALOPRAM 10 MG TAB PO (08:15)
[2017-06-18] MEDS: HEPARIN 5,000 UNIT/0.5 ML VIAL SC ×2 (08:24→21:13)
[2017-06-18] MEDS: SODIUM HYPOCHLORITE 1/40% 1L IRRIG IRR ×3 (09:00→21:00)
[2017-06-18] MEDS: MAGNESIUM SULFATE 2 GM/50 ML 50 ML IVPB (09:44)
[2017-06-18] MEDS: NYSTATIN 30 GM POWDER BTL TOP ×2 (09:46→21:14)
[2017-06-19] MEDS: HYDROmorphONE 0.5 MG/0.5 ML SYG IV ×9 (00:33→22:44)
[2017-06-19] MEDS: DIPHENHYDRAMINE 25 MG CAP PO ×4 (03:27→21:00)
[2017-06-19] MEDS: CEFTAZIDIME 1GM/50 ML (PMX) 50 ML IVPB ×3 (03:28→19:51)
[2017-06-19] MEDS: DEXTROSE 5%-0.225% NACL 1,000 ML IV ×2 (03:30→17:30)
[2017-06-19] MEDS: PANTOPRAZOLE (EC) 40 MG TAB PO (05:12)
[2017-06-19 05:30] LABS: ADD MAN DIFF? NO
[2017-06-19 05:36] LABS: BASOPHILS % 0.7 % (0.0-2.0); EOSINOPHILS # 0.4 10^3/ul (0.0-0.5); EOSINOPHILS % 8.7 % (0.0-7.0); HEMATOCRIT 28.2 % (37.0-47.0); HEMOGLOBIN 9.2 g/dl (12.0-16.0); LYMPHOCYTES # 1.3 10^3/ul (0.8-2.9); LYMPHOCYTES % 31.5 % (15.0-51.0); MEAN CORPUSCULAR HEMOGLOBIN 29.6 pg (29.0-33.0); MEAN CORPUSCULAR HGB CONC 32.6 g/dl (32.0-37.0); MEAN CORPUSCULAR VOLUME 90.7 fl (82.0-101.0); MEAN PLATELET VOLUME 8.8 fl (7.4-10.4); MONOCYTE # 0.4 10^3/ul (0.3-0.9); MONOCYTES % 10.9 % (0.0-11.0); NEUTROPHIL # 1.9 10^3/ul (1.6-7.5); NEUTROPHILS % 47.7 % (39.0-77.0); PLATELET COUNT 285 10^3/UL (140-415); RED BLOOD COUNT 3.11 10^6/ul (4.20-5.40); RED CELL DISTRIBUTION WIDTH 16.6 % (11.5-14.5)
[2017-06-19 06:07] LABS: ANION GAP 14 (8-16); BLOOD UREA NITROGEN 4 mg/dl (7-20); CALCIUM 8.7 mg/dl (8.4-10.2); CARBON DIOXIDE 27 mmol/L (21-31); CHLORIDE 105 mmol/L (97-110); CREATININE 0.67 mg/dl (0.44-1.00); GLUCOSE 137 mg/dl (70-220); MAGNESIUM 1.9 mg/dl (1.7-2.5); POTASSIUM 4.4 mmol/L (3.5-5.1); SODIUM 142 mmol/L (135-144)
[2017-06-19] MEDS: SODIUM HYPOCHLORITE 1/40% 1L IRRIG IRR ×3 (08:05→21:00)
[2017-06-19] MEDS: ZYVOX 600 MG TAB PO ×2 (09:26→21:43)
[2017-06-19] MEDS: ESCITALOPRAM 10 MG TAB PO (09:26)
[2017-06-19] MEDS: MULTIVITAMINS THERAPEUTIC TAB PO (09:26)
[2017-06-19] MEDS: LACTOBACILLUS RHAMNOSUS CAP PO ×2 (09:26→21:43)
[2017-06-19] MEDS: oxyCODONE (CR) 10 MG TAB [oxyCONTIN] PO ×2 (09:27→21:43)
[2017-06-19] MEDS: FLUCONAZOLE 100 MG TAB PO (09:27)
[2017-06-19] MEDS: NYSTATIN 30 GM POWDER BTL TOP ×2 (09:28→21:44)
[2017-06-19] MEDS: HEPARIN 5,000 UNIT/0.5 ML VIAL SC ×2 (09:42→21:48)
[2017-06-20] MEDS: HYDROmorphONE 0.5 MG/0.5 ML SYG IV ×7 (01:13→22:35)
[2017-06-20] MEDS: DIPHENHYDRAMINE 25 MG CAP PO ×4 (03:00→21:23)
[2017-06-20] MEDS: DEXTROSE 5%-0.225% NACL 1,000 ML IV (03:30)
[2017-06-20] MEDS: CEFTAZIDIME 1GM/50 ML (PMX) 50 ML IVPB ×3 (04:08→19:53)
[2017-06-20] MEDS: PANTOPRAZOLE (EC) 40 MG TAB PO (06:18)
[2017-06-20 07:02] LABS: ANION GAP 14 (8-16); BLOOD UREA NITROGEN 5 mg/dl (7-20); CALCIUM 8.6 mg/dl (8.4-10.2); CARBON DIOXIDE 29 mmol/L (21-31); CHLORIDE 103 mmol/L (97-110); CREATININE 0.68 mg/dl (0.44-1.00); GLUCOSE 135 mg/dl (70-220); MAGNESIUM 1.6 mg/dl (1.7-2.5); POTASSIUM 4.1 mmol/L (3.5-5.1); SODIUM 142 mmol/L (135-144)
[2017-06-20] MEDS: SODIUM HYPOCHLORITE 1/40% 1L IRRIG IRR ×4 (09:00→22:35)
[2017-06-20] MEDS: NYSTATIN 30 GM POWDER BTL TOP ×2 (09:28→21:24)
[2017-06-20] MEDS: LACTOBACILLUS RHAMNOSUS CAP PO ×2 (09:29→21:23)
[2017-06-20] MEDS: FLUCONAZOLE 100 MG TAB PO (09:29)
[2017-06-20] MEDS: ZYVOX 600 MG TAB PO ×2 (09:29→21:23)
[2017-06-20] MEDS: oxyCODONE (CR) 10 MG TAB [oxyCONTIN] PO ×2 (09:30→21:00)
[2017-06-20] MEDS: HEPARIN 5,000 UNIT/0.5 ML VIAL SC ×2 (11:41→21:26)
[2017-06-20] MEDS: ESCITALOPRAM 10 MG TAB PO (11:51)
[2017-06-20] MEDS: MULTIVITAMINS THERAPEUTIC TAB PO (11:51)
[2017-06-20] MEDS: MAGNESIUM SULFATE 3 GM in DEXTROSE 5% 100 ML IVPB (12:04)
[2017-06-21] MEDS: HYDROmorphONE 0.5 MG/0.5 ML SYG IV ×8 (02:31→23:43)
[2017-06-21] MEDS: DIPHENHYDRAMINE 25 MG CAP PO ×4 (02:45→20:49)
[2017-06-21] MEDS: DEXTROSE 5%-0.225% NACL 1,000 ML IV ×2 (03:30→20:52)
[2017-06-21] MEDS: CEFTAZIDIME 1GM/50 ML (PMX) 50 ML IVPB ×3 (04:01→20:48)
[2017-06-21 05:19] LABS: ADD MAN DIFF? NO
[2017-06-21 05:26] LABS: BASOPHILS % 0.4 % (0.0-2.0); EOSINOPHILS # 0.3 10^3/ul (0.0-0.5); EOSINOPHILS % 6.5 % (0.0-7.0); HEMATOCRIT 28.1 % (37.0-47.0); LYMPHOCYTES # 1.7 10^3/ul (0.8-2.9); LYMPHOCYTES % 38.3 % (15.0-51.0); MEAN CORPUSCULAR HEMOGLOBIN 29.2 pg (29.0-33.0); MEAN CORPUSCULAR VOLUME 91.2 fl (82.0-101.0); MEAN PLATELET VOLUME 8.7 fl (7.4-10.4); MONOCYTE # 0.5 10^3/ul (0.3-0.9); MONOCYTES % 10.5 % (0.0-11.0); NEUTROPHIL # 1.9 10^3/ul (1.6-7.5); NEUTROPHILS % 43.6 % (39.0-77.0); PLATELET COUNT 366 10^3/UL (140-415); RED BLOOD COUNT 3.08 10^6/ul (4.20-5.40); RED CELL DISTRIBUTION WIDTH 17.1 % (11.5-14.5)
[2017-06-21 05:26] LABS: WHITE BLOOD COUNT 4.5 10^3/ul (4.8-10.8)
[2017-06-21] MEDS: PANTOPRAZOLE (EC) 40 MG TAB PO (05:43)
[2017-06-21 06:42] LABS: ANION GAP 16 (8-16); BLOOD UREA NITROGEN 5 mg/dl (7-20); CALCIUM 8.5 mg/dl (8.4-10.2); CARBON DIOXIDE 28 mmol/L (21-31); CHLORIDE 104 mmol/L (97-110); CREATININE 0.69 mg/dl (0.44-1.00); GLUCOSE 97 mg/dl (70-220); MAGNESIUM 2.2 mg/dl (1.7-2.5); POTASSIUM 4.1 mmol/L (3.5-5.1); SODIUM 144 mmol/L (135-144)
[2017-06-21 08:16] LABS: ERYTHROCYTE SEDIMENTATION RATE 67 mm/Hr (0-20)
[2017-06-21 08:25] LABS: C-REACTIVE PROTEIN 1.4 mg/dl (0.0-0.9)
[2017-06-21] MEDS: LACTOBACILLUS RHAMNOSUS CAP PO ×2 (08:43→20:49)
[2017-06-21] MEDS: MULTIVITAMINS THERAPEUTIC TAB PO (08:44)
[2017-06-21] MEDS: NYSTATIN 30 GM POWDER BTL TOP ×2 (08:44→20:52)
[2017-06-21] MEDS: ESCITALOPRAM 10 MG TAB PO (08:44)
[2017-06-21] MEDS: FLUCONAZOLE 100 MG TAB PO (08:44)
[2017-06-21] MEDS: ZYVOX 600 MG TAB PO ×2 (08:44→20:49)
[2017-06-21] MEDS: oxyCODONE (CR) 10 MG TAB [oxyCONTIN] PO ×2 (08:44→20:55)
[2017-06-21] MEDS: HEPARIN 5,000 UNIT/0.5 ML VIAL SC ×2 (08:49→20:51)
[2017-06-21] MEDS: SODIUM HYPOCHLORITE 1/40% 1L IRRIG IRR ×3 (08:50→20:55)
[2017-06-22] MEDS: HYDROmorphONE 0.5 MG/0.5 ML SYG IV ×8 (01:58→23:09)
[2017-06-22] MEDS: DIPHENHYDRAMINE 25 MG CAP PO ×4 (03:09→20:49)
[2017-06-22] MEDS: CEFTAZIDIME 1GM/50 ML (PMX) 50 ML IVPB ×3 (03:10→20:46)
[2017-06-22] MEDS: PANTOPRAZOLE (EC) 40 MG TAB PO (06:14)
[2017-06-22 07:07] LABS: ADD MAN DIFF? NO
[2017-06-22 07:15] LABS: BASOPHILS % 0.4 % (0.0-2.0); EOSINOPHILS # 0.2 10^3/ul (0.0-0.5); EOSINOPHILS % 4.9 % (0.0-7.0); HEMATOCRIT 29.6 % (37.0-47.0); HEMOGLOBIN 9.3 g/dl (12.0-16.0); LYMPHOCYTES # 1.8 10^3/ul (0.8-2.9); LYMPHOCYTES % 37.5 % (15.0-51.0); MEAN CORPUSCULAR HEMOGLOBIN 28.9 pg (29.0-33.0); MEAN CORPUSCULAR HGB CONC 31.4 g/dl (32.0-37.0); MEAN CORPUSCULAR VOLUME 91.9 fl (82.0-101.0); MEAN PLATELET VOLUME 8.9 fl (7.4-10.4); MONOCYTE # 0.5 10^3/ul (0.3-0.9); MONOCYTES % 11.6 % (0.0-11.0); NEUTROPHIL # 2.1 10^3/ul (1.6-7.5); NEUTROPHILS % 45.2 % (39.0-77.0); PLATELET COUNT 371 10^3/UL (140-415); RED BLOOD COUNT 3.22 10^6/ul (4.20-5.40); RED CELL DISTRIBUTION WIDTH 17.2 % (11.5-14.5)
[2017-06-22 07:15] LABS: WHITE BLOOD COUNT 4.7 10^3/ul (4.8-10.8)
[2017-06-22 07:31] LABS: ANION GAP 15 (8-16); BLOOD UREA NITROGEN 5 mg/dl (7-20); CALCIUM 8.8 mg/dl (8.4-10.2); CARBON DIOXIDE 26 mmol/L (21-31); CHLORIDE 103 mmol/L (97-110); CREATININE 0.65 mg/dl (0.44-1.00); GLUCOSE 135 mg/dl (70-220); MAGNESIUM 1.8 mg/dl (1.7-2.5); POTASSIUM 4.2 mmol/L (3.5-5.1); SODIUM 140 mmol/L (135-144)
[2017-06-22] MEDS: oxyCODONE (CR) 10 MG TAB [oxyCONTIN] PO ×2 (08:37→20:50)
[2017-06-22] MEDS: MULTIVITAMINS THERAPEUTIC TAB PO (08:37)
[2017-06-22] MEDS: ESCITALOPRAM 10 MG TAB PO (08:37)
[2017-06-22] MEDS: FLUCONAZOLE 100 MG TAB PO (08:37)
[2017-06-22] MEDS: LACTOBACILLUS RHAMNOSUS CAP PO ×2 (08:37→20:48)
[2017-06-22] MEDS: NYSTATIN 30 GM POWDER BTL TOP ×2 (08:38→20:48)
[2017-06-22] MEDS: ZYVOX 600 MG TAB PO ×2 (08:38→20:48)
[2017-06-22] MEDS: SODIUM HYPOCHLORITE 1/40% 1L IRRIG IRR ×3 (08:38→20:49)
[2017-06-22] MEDS: HEPARIN 5,000 UNIT/0.5 ML VIAL SC ×2 (08:45→20:47)
[2017-06-23] MEDS: HYDROmorphONE 0.5 MG/0.5 ML SYG IV ×10 (01:12→22:19)
[2017-06-23] MEDS: DIPHENHYDRAMINE 25 MG CAP PO ×4 (03:00→21:15)
[2017-06-23] MEDS: DEXTROSE 5%-0.225% NACL 1,000 ML IV (03:30)
[2017-06-23] MEDS: CEFTAZIDIME 1GM/50 ML (PMX) 50 ML IVPB ×3 (04:23→20:00)
[2017-06-23] MEDS: PANTOPRAZOLE (EC) 40 MG TAB PO (05:43)
[2017-06-23 06:42] LABS: ADD MAN DIFF? NO
[2017-06-23 06:46] LABS: BASOPHILS % 0.8 % (0.0-2.0); EOSINOPHILS # 0.4 10^3/ul (0.0-0.5); EOSINOPHILS % 8.8 % (0.0-7.0); HEMATOCRIT 28.7 % (37.0-47.0); HEMOGLOBIN 9.2 g/dl (12.0-16.0); LYMPHOCYTES # 1.6 10^3/ul (0.8-2.9); LYMPHOCYTES % 40.9 % (15.0-51.0); MEAN CORPUSCULAR HEMOGLOBIN 29.7 pg (29.0-33.0); MEAN CORPUSCULAR HGB CONC 32.1 g/dl (32.0-37.0); MEAN CORPUSCULAR VOLUME 92.6 fl (82.0-101.0); MEAN PLATELET VOLUME 8.6 fl (7.4-10.4); MONOCYTE # 0.6 10^3/ul (0.3-0.9); MONOCYTES % 14.3 % (0.0-11.0); NEUTROPHIL # 1.4 10^3/ul (1.6-7.5); NEUTROPHILS % 34.7 % (39.0-77.0); PLATELET COUNT 328 10^3/UL (140-415); RED CELL DISTRIBUTION WIDTH 17.2 % (11.5-14.5)
[2017-06-23 07:15] LABS: ANION GAP 12 (8-16); BLOOD UREA NITROGEN 4 mg/dl (7-20); CALCIUM 8.8 mg/dl (8.4-10.2); CARBON DIOXIDE 27 mmol/L (21-31); CHLORIDE 104 mmol/L (97-110); GLUCOSE 81 mg/dl (70-220); MAGNESIUM 1.7 mg/dl (1.7-2.5); POTASSIUM 4.1 mmol/L (3.5-5.1); SODIUM 139 mmol/L (135-144)
[2017-06-23] MEDS: NYSTATIN 30 GM POWDER BTL TOP ×2 (09:09→21:02)
[2017-06-23] MEDS: LACTOBACILLUS RHAMNOSUS CAP PO ×2 (09:10→20:00)
[2017-06-23] MEDS: SODIUM HYPOCHLORITE 1/40% 1L IRRIG IRR ×3 (09:10→20:05)
[2017-06-23] MEDS: FLUCONAZOLE 100 MG TAB PO (09:10)
[2017-06-23] MEDS: ZYVOX 600 MG TAB PO ×2 (09:10→20:00)
[2017-06-23] MEDS: MULTIVITAMINS THERAPEUTIC TAB PO (09:10)
[2017-06-23] MEDS: ESCITALOPRAM 10 MG TAB PO (09:10)
[2017-06-23] MEDS: oxyCODONE (CR) 10 MG TAB [oxyCONTIN] PO ×2 (09:15→20:00)
[2017-06-23] MEDS: HEPARIN 5,000 UNIT/0.5 ML VIAL SC ×2 (09:15→21:02)
[2017-06-24] MEDS: MAGNESIUM SULFATE 2 GM/50 ML 50 ML IVPB ×2 (01:18→09:00)
[2017-06-24] MEDS: HYDROmorphONE 0.5 MG/0.5 ML SYG IV ×8 (01:22→22:15)
[2017-06-24] MEDS: DIPHENHYDRAMINE 25 MG CAP PO ×4 (03:00→21:00)
[2017-06-24] MEDS: DEXTROSE 5%-0.225% NACL 1,000 ML IV ×2 (03:30→03:46)
[2017-06-24] MEDS: CEFTAZIDIME 1GM/50 ML (PMX) 50 ML IVPB ×3 (05:02→20:30)
[2017-06-24] MEDS: PANTOPRAZOLE (EC) 40 MG TAB PO ×2 (05:03→05:52)
[2017-06-24] MEDS: SODIUM HYPOCHLORITE 1/40% 1L IRRIG IRR ×4 (05:04→20:32)
[2017-06-24 06:16] LABS: ADD MAN DIFF? NO
[2017-06-24 06:20] LABS: BASOPHILS % 0.7 % (0.0-2.0); EOSINOPHILS # 0.2 10^3/ul (0.0-0.5); EOSINOPHILS % 3.9 % (0.0-7.0); HEMATOCRIT 28.3 % (37.0-47.0); HEMOGLOBIN 9.1 g/dl (12.0-16.0); LYMPHOCYTES # 0.9 10^3/ul (0.8-2.9); LYMPHOCYTES % 19.9 % (15.0-51.0); MEAN CORPUSCULAR HEMOGLOBIN 29.6 pg (29.0-33.0); MEAN CORPUSCULAR HGB CONC 32.2 g/dl (32.0-37.0); MEAN CORPUSCULAR VOLUME 92.2 fl (82.0-101.0); MEAN PLATELET VOLUME 8.7 fl (7.4-10.4); MONOCYTE # 0.5 10^3/ul (0.3-0.9); MONOCYTES % 10.5 % (0.0-11.0); NEUTROPHIL # 2.8 10^3/ul (1.6-7.5); NEUTROPHILS % 64.3 % (39.0-77.0); PLATELET COUNT 290 10^3/UL (140-415); RED BLOOD COUNT 3.07 10^6/ul (4.20-5.40); RED CELL DISTRIBUTION WIDTH 17.2 % (11.5-14.5)
[2017-06-24 06:20] LABS: WHITE BLOOD COUNT 4.4 10^3/ul (4.8-10.8)
[2017-06-24 07:02] LABS: ANION GAP 14 (8-16); BLOOD UREA NITROGEN 5 mg/dl (7-20); CALCIUM 8.4 mg/dl (8.4-10.2); CARBON DIOXIDE 26 mmol/L (21-31); CHLORIDE 105 mmol/L (97-110); CREATININE 0.63 mg/dl (0.44-1.00); GLUCOSE 85 mg/dl (70-220); MAGNESIUM 1.5 mg/dl (1.7-2.5); POTASSIUM 3.8 mmol/L (3.5-5.1); SODIUM 141 mmol/L (135-144)
[2017-06-24] MEDS: LACTOBACILLUS RHAMNOSUS CAP PO ×2 (09:00→20:31)
[2017-06-24] MEDS: MULTIVITAMINS THERAPEUTIC TAB PO (09:00)
[2017-06-24] MEDS: FLUCONAZOLE 100 MG TAB PO (09:00)
[2017-06-24] MEDS: ESCITALOPRAM 10 MG TAB PO (09:00)
[2017-06-24] MEDS: ZYVOX 600 MG TAB PO ×2 (09:00→20:31)
[2017-06-24] MEDS: NYSTATIN 30 GM POWDER BTL TOP ×2 (09:01→20:33)
[2017-06-24] MEDS: oxyCODONE (CR) 10 MG TAB [oxyCONTIN] PO ×2 (09:59→21:00)
[2017-06-24] MEDS: HEPARIN 5,000 UNIT/0.5 ML VIAL SC ×2 (10:00→20:32)
[2017-06-25] MEDS: HYDROmorphONE 0.5 MG/0.5 ML SYG IV ×2 (01:00→02:57)
== END 2017-06-25 03:15 | DRG 853 ==
LOC: MS1 05-16 01:24 → MS2 05-17 00:02 → MS1 05-16 06:24 → MS2 05-16 23:34 → E/R 13:14
PROC: 0KBN0ZZ Excision of Right Hip Muscle, Open Approach (ICD-10-PCS; 2017-05-21 07:30)
PROC: 0KX Muscles, Transfer (ICD-10-PCS; principal; 2017-05-21 07:54)
PROC: 0QB60ZZ Excision of Right Upper Femur, Open Approach (ICD-10-PCS; 2017-05-21 07:54)
PROC: 0JBN0ZZ Excision of Right Lower Leg Subcutaneous Tissue and Fascia, Open Approach (ICD-10-PCS; 2017-05-21 07:54)
PROC: 0HBKXZX Excision of Right Lower Leg Skin, External Approach, Diagnostic (ICD-10-PCS; 2017-05-21 07:54)
PROC: 02HV33Z Insertion of Infusion Device into Superior Vena Cava, Percutaneous Approach (ICD-10-PCS; 2017-05-21 07:54)
PROC: 30233N1 Transfusion of Nonautologous Red Blood Cells into Peripheral Vein, Percutaneous Approach (ICD-10-PCS; 2017-05-21 07:54)
DX: A41.9 Sepsis, unspecified organism (principal); L89.214 Pressure ulcer of right hip, stage 4; N17.0 Acute kidney failure with tubular necrosis; E87.1 Hypo-osmolality and hyponatremia; D62 Acute posthemorrhagic anemia; I82.619 Acute embolism and thrombosis of superficial veins of unspecified upper extremity; L03.115 Cellulitis of right lower limb; N39.0 Urinary tract infection, site not specified; M86.18 Other acute osteomyelitis, other site; I95.9 Hypotension, unspecified; I48.91 Unspecified atrial fibrillation; E88.09 Other disorders of plasma-protein metabolism, not elsewhere classified; E83.42 Hypomagnesemia; J45.909 Unspecified asthma, uncomplicated; G40.909 Epilepsy, unspecified, not intractable, without status epilepticus; M24.452 Recurrent dislocation, left hip; D63.8 Anemia in other chronic diseases classified elsewhere; E83.51 Hypocalcemia; K59.00 Constipation, unspecified; L89.622 Pressure ulcer of left heel, stage 2; L89.611 Pressure ulcer of right heel, stage 1; L27.0 Generalized skin eruption due to drugs and medicaments taken internally; H53.8 Other visual disturbances; F32.9 Major depressive disorder, single episode, unspecified; K08.9 Disorder of teeth and supporting structures, unspecified; K29.70 Gastritis, unspecified, without bleeding; R62.50 Unspecified lack of expected normal physiological development in childhood; R11.0 Nausea; R30.0 Dysuria; R65.20 Severe sepsis without septic shock; R19.7 Diarrhea, unspecified; R21 Rash and other nonspecific skin eruption; B95.2 Enterococcus as the cause of diseases classified elsewhere; L23.9 Allergic contact dermatitis, unspecified cause; T36.0X5A Adverse effect of penicillins, initial encounter; Y92.239 Unspecified place in hospital as the place of occurrence of the external cause; Z99.3 Dependence on wheelchair
CPT/HCPCS: 36415; 36430; 36569; 36600; 71045; 72192; 73500; 73560; 76775; 76937; 80048; 80053; 80202; 81001; 81003; 82270; 82570; 82728; 82803; 83540; 83605; 83735; 84100; 84300; 84484; 84560; 84703; 85014; 85018; 85025; 85610; 85651; 85730; 86021; 86038; 86140; 86160; 86162; 86320; 86325; 86430; 86592; 86850; 86900; 86901; 86920; 87040; 87070; 87075; 87081; 87086; 87102; 87116; 88304; 88305; 88311; 89190; 93005; 93971; 94640; 96361; 96365; 96366; 96375; 97110; 97163; 97165; 97530; 99291-25

== ENCOUNTER 2017-08-16 16:38 | Inpatient (IN) | payer MEDICARE, MEDICAID ==
[2017-08-16] MEDS ORDERED: ACETAMINOPHEN 325 MG TAB PO (17:00)
[2017-08-16 17:26] LABS: WHITE BLOOD COUNT 9.8 10^3/ul (4.8-10.8)
[2017-08-16 17:26] LABS: ABNORMAL IP MESSAGE 1; HEMATOCRIT 36.8 % (37.0-47.0); HEMOGLOBIN 11.9 g/dl (12.0-16.0); MEAN CORPUSCULAR HGB CONC 32.3 g/dl (32.0-37.0); MEAN CORPUSCULAR VOLUME 89.5 fl (82.0-101.0); MEAN PLATELET VOLUME 8.7 fl (7.4-10.4); PLATELET COUNT 313 10^3/UL (140-415); RED BLOOD COUNT 4.11 10^6/ul (4.20-5.40); RED CELL DISTRIBUTION WIDTH 14.3 % (11.5-14.5)
[2017-08-16] MEDS: metroNIDAZOLE 500 MG/NS (PMX) 100 ML IVPB ×2 (17:28→23:48)
[2017-08-16] MEDS: SODIUM CHLORIDE 0.9% 1L BAG IV* (17:28)
[2017-08-16] MEDS: HYDROmorphONE 2 MG/ML SYG IM (17:29)
[2017-08-16 17:33] LABS: ADD MAN DIFF? YES; POSITIVE DIFF @See below
[2017-08-16] MEDS: HYDROmorphONE 1 MG/5 ML IV SYRINGE IV (17:38)
[2017-08-16 17:43] LABS: LACTIC ACID 1.5 mmol/L (0.5-2.0)
[2017-08-16 17:45] LABS: ALANINE AMINOTRANSFERASE 32 IU/L (13-69); ALBUMIN 3.1 g/dl (3.3-4.9); ALBUMIN/GLOBULIN RATIO 0.96; ALKALINE PHOSPHATASE 95 IU/L (42-121); ANION GAP 16 (8-16); ASPARTATE AMINO TRANSFERASE 23 IU/L (15-46); BILIRUBIN,INDIRECT 0.4 mg/dl (0-1.1); BILIRUBIN,TOTAL 0.4 mg/dl (0.2-1.3); BLOOD UREA NITROGEN 13 mg/dl (7-20); CALCIUM 8.2 mg/dl (8.4-10.2); CARBON DIOXIDE 22 mmol/L (21-31); CHLORIDE 99 mmol/L (97-110); CREATININE 0.94 mg/dl (0.44-1.00); GLUCOSE 109 mg/dl (70-220); POTASSIUM 3.6 mmol/L (3.5-5.1); SODIUM 133 mmol/L (135-144); TOTAL PROTEIN 6.3 g/dl (6.1-8.1)
[2017-08-16 17:57] LABS: TROPONIN-I < 0.012 ng/ml (0.000-0.120)
[2017-08-16] MEDS ORDERED: ALBUTEROL 0.083% (NEB) 2.5 MG/3 ML AMP HHN (18:00)
[2017-08-16 18:07] LABS: INR 1.16; PT RATIO 1.2
[2017-08-16 18:08] LABS: PARTIAL THROMBOPLASTIN TIME 30.7 Sec (25.0-35.0)
[2017-08-16 18:26] LABS: ANISOCYTOSIS 2+ (0-0); BAND NEUTROPHILS #M 4.5 10^3/ul (0.0-0.6); BAND NEUTROPHILS % (M) 46 % (0-4); GIANT THROMBO% (M) 2 % (0-0); LYMPHOCYTES #M 0.3 10^3/ul (0.8-2.9); LYMPHOCYTES % (M) 4 % (15-51); METAMYELOCYTES #M 0.6 10^3/ul (0.0-0.0); METAMYELOCYTES %M 7 % (0-0); MICROCYTOSIS 2+ (0-0); MONOCYTE #M 0.5 10^3/ul (0.3-0.9); MONOCYTES % (M) 6 % (0-11); PLATELET MORPHOLOGY COMMENT @See below; POLYCHROMASIA 1+ (0-0); SEG NEUT #M 4.1 10^3/ul (1.6-7.5); SEGMENTED NEUTROPHILS (M) % 37 % (39-77); SMUDGE%M 8 % (0-0)
[2017-08-16] MEDS: NORepinephrine 8MG/250 ML (PMX 250 ML IV (19:00)
[2017-08-16] MEDS: SOD CHLORIDE 0.9% 1,000 ML IV (19:01)
[2017-08-16] MEDS: PANTOPRAZOLE 40 MG INJ IV (19:01)
[2017-08-16] MEDS: HYDROmorphONE 0.5 MG/0.5 ML SYG IV ×2 (19:15→21:52)
[2017-08-16 20:39] LABS: LACTIC ACID 0.5 mmol/L (0.5-2.0)
[2017-08-16] MEDS: ONDANSETRON 4 MG INJ IV (21:44)
[2017-08-16] MEDS: L ACIDOPHIL/B LACTIS/B LONGUM CAPSULE PO (22:30)
[2017-08-16 22:47] LABS: LACTIC ACID 1.1 mmol/L (0.5-2.0)
[2017-08-17] MEDS: HYDROmorphONE 0.5 MG/0.5 ML SYG IV ×11 (00:33→22:45)
[2017-08-17] MEDS: ONDANSETRON 4 MG INJ IV ×5 (02:27→23:17)
[2017-08-17] MEDS: SOD CHLORIDE 0.9% 1,000 ML IV ×3 (02:44→18:30)
[2017-08-17] MEDS: LORAZEPAM 2 MG INJ IV (03:33)
[2017-08-17] MEDS: PANTOPRAZOLE 40 MG INJ IV (05:26)
[2017-08-17 06:21] LABS: ADD MAN DIFF? NO
[2017-08-17 06:23] LABS: WHITE BLOOD COUNT 20.5 10^3/ul (4.8-10.8)
[2017-08-17 06:23] LABS: ABNORMAL IP MESSAGE 1; BASOPHIL # 0.2 10^3/ul (0.0-0.1); BASOPHILS % 0.9 % (0.0-2.0); HEMATOCRIT 35.6 % (37.0-47.0); HEMOGLOBIN 11.5 g/dl (12.0-16.0); LYMPHOCYTES # 1.2 10^3/ul (0.8-2.9); LYMPHOCYTES % 5.7 % (15.0-51.0); MEAN CORPUSCULAR HEMOGLOBIN 28.8 pg (29.0-33.0); MEAN CORPUSCULAR HGB CONC 32.3 g/dl (32.0-37.0); MEAN CORPUSCULAR VOLUME 89.2 fl (82.0-101.0); MEAN PLATELET VOLUME 8.7 fl (7.4-10.4); MONOCYTES % 4.9 % (0.0-11.0); NEUTROPHILS % 87.8 % (39.0-77.0); PLATELET COUNT 364 10^3/UL (140-415); RED BLOOD COUNT 3.99 10^6/ul (4.20-5.40)
[2017-08-17] MEDS: metroNIDAZOLE 500 MG/NS (PMX) 100 ML IVPB ×3 (06:25→22:44)
[2017-08-17 06:31] LABS: POSITIVE DIFF @See below
[2017-08-17 06:55] LABS: ANION GAP 15 (8-16); BLOOD UREA NITROGEN 12 mg/dl (7-20); CALCIUM 7.7 mg/dl (8.4-10.2); CARBON DIOXIDE 21 mmol/L (21-31); CHLORIDE 103 mmol/L (97-110); CREATININE 0.73 mg/dl (0.44-1.00); GLUCOSE 98 mg/dl (70-220); MAGNESIUM 1.5 mg/dl (1.7-2.5); POTASSIUM 3.6 mmol/L (3.5-5.1); SODIUM 135 mmol/L (135-144)
[2017-08-17 07:06] LABS: C-REACTIVE PROTEIN 20.1 mg/dl (0.0-0.9)
[2017-08-17] MEDS ORDERED: PENDING SANTYL ORDER FOR WOUND CARE XX (08:00)
[2017-08-17] MEDS: ESCITALOPRAM 10 MG TAB PO (08:47)
[2017-08-17] MEDS: ACETAMINOPHEN 325 MG TAB PO ×3 (09:04→23:17)
[2017-08-17] MEDS: L ACIDOPHIL/B LACTIS/B LONGUM CAPSULE PO ×2 (09:24→20:02)
[2017-08-17] MEDS ORDERED: VANCOMYCIN IV PER PHARMACY XX (11:30)
[2017-08-17] MEDS ORDERED: TOBRAMYCIN IV PER PHARMACY XX (11:30)
[2017-08-17] MEDS: MAGNESIUM SULFATE 2 GM/50 ML 50 ML IVPB (12:39)
[2017-08-17] MEDS: TOBRAMYCIN 140 MG in DEXTROSE 5% 100 ML IVPB (13:05)
[2017-08-17] MEDS ORDERED: DEXTROSE 5% IVPB (14:00)
[2017-08-17] MEDS ORDERED: TOBRAMYCIN IVPB (14:00)
[2017-08-17] MEDS: NORepinephrine 8MG/250 ML (PMX 250 ML IV (19:24)
[2017-08-17] MEDS: TOBRAMYCIN IVPB (23:13)
[2017-08-17] MEDS: DEXTROSE 5% IVPB (23:13)
[2017-08-18] MEDS: HYDROmorphONE 0.5 MG/0.5 ML SYG IV ×10 (01:51→22:15)
[2017-08-18] MEDS: SOD CHLORIDE 0.9% 1,000 ML IV ×3 (01:58→17:51)
[2017-08-18] MEDS: metroNIDAZOLE 500 MG/NS (PMX) 100 ML IVPB (05:19)
[2017-08-18] MEDS: PANTOPRAZOLE 40 MG INJ IV (05:19)
[2017-08-18 06:01] LABS: ABNORMAL IP MESSAGE 1; HEMATOCRIT 29.8 % (37.0-47.0); HEMOGLOBIN 9.8 g/dl (12.0-16.0); MEAN CORPUSCULAR HEMOGLOBIN 28.9 pg (29.0-33.0); MEAN CORPUSCULAR HGB CONC 32.9 g/dl (32.0-37.0); MEAN CORPUSCULAR VOLUME 87.9 fl (82.0-101.0); MEAN PLATELET VOLUME 8.8 fl (7.4-10.4); PLATELET COUNT 268 10^3/UL (140-415); RED BLOOD COUNT 3.39 10^6/ul (4.20-5.40); RED CELL DISTRIBUTION WIDTH 14.1 % (11.5-14.5)
[2017-08-18 06:01] LABS: WHITE BLOOD COUNT 25.2 10^3/ul (4.8-10.8)
[2017-08-18 06:09] LABS: ADD MAN DIFF? YES; POSITIVE DIFF @See below
[2017-08-18 07:13] LABS: ALANINE AMINOTRANSFERASE 25 IU/L (13-69); ALBUMIN 2.5 g/dl (3.3-4.9); ALBUMIN/GLOBULIN RATIO 0.89; ALKALINE PHOSPHATASE 123 IU/L (42-121); ANION GAP 11 (8-16); ASPARTATE AMINO TRANSFERASE 10 IU/L (15-46); BILIRUBIN,INDIRECT 0.2 mg/dl (0-1.1); BILIRUBIN,TOTAL 0.2 mg/dl (0.2-1.3); BLOOD UREA NITROGEN 7 mg/dl (7-20); CALCIUM 7.6 mg/dl (8.4-10.2); CARBON DIOXIDE 21 mmol/L (21-31); CHLORIDE 107 mmol/L (97-110); CREATININE 0.65 mg/dl (0.44-1.00); GLUCOSE 86 mg/dl (70-220); POTASSIUM 3.2 mmol/L (3.5-5.1); SODIUM 136 mmol/L (135-144); TOTAL PROTEIN 5.3 g/dl (6.1-8.1)
[2017-08-18 07:58] LABS: ERYTHROCYTE SEDIMENTATION RATE 30 mm/Hr (0-20)
[2017-08-18] MEDS: ESCITALOPRAM 10 MG TAB PO (09:26)
[2017-08-18] MEDS: L ACIDOPHIL/B LACTIS/B LONGUM CAPSULE PO ×2 (09:26→20:21)
[2017-08-18] MEDS: ENOXAPARIN 30 MG/0.3 ML SYG SC (09:28)
[2017-08-18 10:54] LABS: ANISOCYTOSIS 1+ (0-0); BAND NEUTROPHILS % (M) 8 % (0-4); BURR CELLS 2+ (0-0); EOSINOPHILS % (M) 1 % (0-7); LYMPHOCYTES #M 1.7 10^3/ul (0.8-2.9); LYMPHOCYTES % (M) 7 % (15-51); MONOCYTE #M 1.5 10^3/ul (0.3-0.9); MONOCYTES % (M) 6 % (0-11); PLATELET ESTIMATE NORMAL; POIKILOCYTOSIS 2+ (0-0); POLYCHROMASIA 1+ (0-0); SEG NEUT #M 20.2 10^3/ul (1.6-7.5); SEGMENTED NEUTROPHILS (M) % 78 % (39-77); SMUDGE%M 3 % (0-0)
[2017-08-18 11:36] LABS: TOBRAMYCIN, RANDOM 2.8 ug/ml
[2017-08-18] MEDS: POTASSIUM CHLORIDE (SR) 20 MEQ TAB PO ×2 (12:26→20:20)
[2017-08-18] MEDS: ACETAMINOPHEN 325 MG TAB PO (12:26)
[2017-08-18] MEDS: FIDAXOMICIN 200 MG TABLET PO (20:20)
[2017-08-18] MEDS: LORAZEPAM 2 MG INJ IV (22:12)
[2017-08-18] MEDS: ZOLPIDEM 5 MG TAB PO (22:12)
[2017-08-19] MEDS: LORAZEPAM 2 MG INJ IV ×4 (00:38→21:20)
[2017-08-19] MEDS: HYDROmorphONE 0.5 MG/0.5 ML SYG IV ×9 (00:39→23:02)
[2017-08-19] MEDS: SOD CHLORIDE 0.9% 1,000 ML IV ×3 (02:49→17:24)
[2017-08-19] MEDS: PANTOPRAZOLE 40 MG INJ IV (05:11)
[2017-08-19 05:47] LABS: WHITE BLOOD COUNT 23.6 10^3/ul (4.8-10.8)
[2017-08-19 05:47] LABS: ABNORMAL IP MESSAGE 1; HEMATOCRIT 29.6 % (37.0-47.0); HEMOGLOBIN 9.7 g/dl (12.0-16.0); MEAN CORPUSCULAR HEMOGLOBIN 29.7 pg (29.0-33.0); MEAN CORPUSCULAR HGB CONC 32.8 g/dl (32.0-37.0); MEAN CORPUSCULAR VOLUME 90.5 fl (82.0-101.0); MEAN PLATELET VOLUME 8.6 fl (7.4-10.4); PLATELET COUNT 287 10^3/UL (140-415); RED BLOOD COUNT 3.27 10^6/ul (4.20-5.40); RED CELL DISTRIBUTION WIDTH 14.3 % (11.5-14.5)
[2017-08-19 05:51] LABS: ADD MAN DIFF? YES; POSITIVE DIFF @See below
[2017-08-19 06:23] LABS: ANION GAP 11 (8-16); BLOOD UREA NITROGEN 3 mg/dl (7-20); CARBON DIOXIDE 21 mmol/L (21-31); CHLORIDE 110 mmol/L (97-110); CREATININE 0.66 mg/dl (0.44-1.00); GLUCOSE 82 mg/dl (70-220); POTASSIUM 3.5 mmol/L (3.5-5.1); SODIUM 138 mmol/L (135-144)
[2017-08-19 07:11] LABS: C-REACTIVE PROTEIN 17.3 mg/dl (0.0-0.9)
[2017-08-19 07:26] LABS: IMMUNOGLOBULIN G 702 mg/dl (700-1600)
[2017-08-19 08:00] LABS: ANISOCYTOSIS 3+ (0-0); BAND NEUTROPHILS #M 4.4 10^3/ul (0.0-0.6); BAND NEUTROPHILS % (M) 19 % (0-4); EOSINOPHILS % (M) 1 % (0-7); GIANT THROMBO% (M) 1 % (0-0); LYMPHOCYTES #M 2.1 10^3/ul (0.8-2.9); LYMPHOCYTES % (M) 9 % (15-51); MONOCYTE #M 0.7 10^3/ul (0.3-0.9); MONOCYTES % (M) 3 % (0-11); PLATELET ESTIMATE NORMAL; POIKILOCYTOSIS 3+ (0-0); POLYCHROMASIA 3+ (0-0); SEG NEUT #M 17.1 10^3/ul (1.6-7.5); SEGMENTED NEUTROPHILS (M) % 68 % (39-77); SMUDGE%M 35 % (0-0)
[2017-08-19] MEDS: ENOXAPARIN 30 MG/0.3 ML SYG SC (09:00)
[2017-08-19] MEDS: L ACIDOPHIL/B LACTIS/B LONGUM CAPSULE PO ×2 (09:24→20:34)
[2017-08-19] MEDS: FIDAXOMICIN 200 MG TABLET PO ×2 (09:24→20:34)
[2017-08-19] MEDS: ESCITALOPRAM 10 MG TAB PO (09:25)
[2017-08-19] MEDS: BARIUM SULF 2% 450 ML BTL (BERRY SMOOTHIE) PO (10:03)
[2017-08-19] MEDS: DEXTROSE 5% IVPB (11:40)
[2017-08-19] MEDS: TOBRAMYCIN IVPB (11:40)
[2017-08-19 16:24] LABS: ADD UMIC YES; UR ASCORBIC ACID NEGATIVE (NEGATIVE); UR BACTERIA FEW /HPF (NONE SEEN); UR BILIRUBIN (Dip) NEGATIVE (NEGATIVE); UR BLOOD (Dip) NEGATIVE (NEGATIVE); UR BUDDING YEAST FEW /HPF (NONE SEEN); UR CLARITY CLEAR (CLEAR); UR COLOR STRAW (YELLOW); UR GLUCOSE (Dip) NEGATIVE (NEGATIVE); UR KETONES (Dip) 1+ mg/dL (NEGATIVE); UR LEUKOCYTE ESTERASE (Dip) TRACE Leu/ul (NEGATIVE); UR NITRITE (Dip) NEGATIVE (NEGATIVE); UR RBC 1 /HPF (0-5); UR SPECIFIC GRAVITY (Dip) 1.005 (1.003-1.030); UR TOTAL PROTEIN (Dip) NEGATIVE (NEGATIVE); UR UROBILINOGEN (Dip) NEGATIVE (NEGATIVE); UR WBC 8 /HPF (0-5)
[2017-08-19] MEDS: ZOLPIDEM 5 MG TAB PO (21:21)
[2017-08-19] MEDS: HALOPERIDOL 5 MG INJ IV (22:45)
[2017-08-20] MEDS: SOD CHLORIDE 0.9% 1,000 ML IV ×3 (01:56→18:50)
[2017-08-20] MEDS: HYDROmorphONE 0.5 MG/0.5 ML SYG IV ×7 (01:57→20:47)
[2017-08-20] MEDS: LORAZEPAM 2 MG INJ IV ×3 (03:26→14:35)
[2017-08-20 05:50] LABS: ADD MAN DIFF? NO
[2017-08-20 05:52] LABS: BASOPHILS % 0.2 % (0.0-2.0); EOSINOPHILS # 0.1 10^3/ul (0.0-0.5); HEMATOCRIT 28.1 % (37.0-47.0); LYMPHOCYTES # 1.3 10^3/ul (0.8-2.9); LYMPHOCYTES % 9.5 % (15.0-51.0); MEAN CORPUSCULAR HEMOGLOBIN 28.8 pg (29.0-33.0); MEAN CORPUSCULAR VOLUME 90.1 fl (82.0-101.0); MEAN PLATELET VOLUME 8.7 fl (7.4-10.4); MONOCYTE # 0.7 10^3/ul (0.3-0.9); NEUTROPHIL # 11.1 10^3/ul (1.6-7.5); NEUTROPHILS % 83.6 % (39.0-77.0); PLATELET COUNT 234 10^3/UL (140-415); RED BLOOD COUNT 3.12 10^6/ul (4.20-5.40); RED CELL DISTRIBUTION WIDTH 14.6 % (11.5-14.5)
[2017-08-20 05:52] LABS: WHITE BLOOD COUNT 13.3 10^3/ul (4.8-10.8)
[2017-08-20] MEDS: PANTOPRAZOLE 40 MG INJ IV (06:15)
[2017-08-20 06:25] LABS: ALANINE AMINOTRANSFERASE 22 IU/L (13-69); ALBUMIN 2.2 g/dl (3.3-4.9); ALBUMIN/GLOBULIN RATIO 0.91; ALKALINE PHOSPHATASE 93 IU/L (42-121); ANION GAP 16 (8-16); ASPARTATE AMINO TRANSFERASE < 8 IU/L (15-46); BILIRUBIN,INDIRECT 0.1 mg/dl (0-1.1); BILIRUBIN,TOTAL 0.1 mg/dl (0.2-1.3); BLOOD UREA NITROGEN 2 mg/dl (7-20); CALCIUM 7.6 mg/dl (8.4-10.2); CARBON DIOXIDE 18 mmol/L (21-31); CHLORIDE 110 mmol/L (97-110); CREATININE 0.58 mg/dl (0.44-1.00); GLUCOSE 71 mg/dl (70-220); POTASSIUM 3.3 mmol/L (3.5-5.1); SODIUM 141 mmol/L (135-144); TOTAL PROTEIN 4.6 g/dl (6.1-8.1)
[2017-08-20] MEDS: FIDAXOMICIN 200 MG TABLET PO ×2 (08:48→20:39)
[2017-08-20] MEDS: ESCITALOPRAM 10 MG TAB PO (08:48)
[2017-08-20] MEDS: ENOXAPARIN 30 MG/0.3 ML SYG SC (08:49)
[2017-08-20] MEDS: L ACIDOPHIL/B LACTIS/B LONGUM CAPSULE PO ×2 (08:50→20:39)
[2017-08-20] MEDS: POTASSIUM CHLORIDE 50 ML IVPB ×2 (09:37→11:31)
[2017-08-20] MEDS: ZOLPIDEM 5 MG TAB PO (20:39)
[2017-08-21] MEDS: SOD CHLORIDE 0.9% 1,000 ML IV ×4 (00:33→22:29)
[2017-08-21] MEDS: TOBRAMYCIN IVPB (00:34)
[2017-08-21] MEDS: DEXTROSE 5% IVPB (00:34)
[2017-08-21] MEDS: HYDROmorphONE 0.5 MG/0.5 ML SYG IV ×8 (02:05→21:15)
[2017-08-21] MEDS: PANTOPRAZOLE 40 MG INJ IV (05:34)
[2017-08-21] MEDS: LORAZEPAM 2 MG INJ IV ×3 (07:56→20:34)
[2017-08-21] MEDS: IOHEXOL 300MG/ML 150 ML BTL (08:36)
[2017-08-21] MEDS: SOD CHLORIDE 0.9% 100 ML (08:36)
[2017-08-21 09:02] LABS: ADD MAN DIFF? NO
[2017-08-21 09:10] LABS: BASOPHILS % 0.3 % (0.0-2.0); EOSINOPHILS # 0.2 10^3/ul (0.0-0.5); EOSINOPHILS % 2.8 % (0.0-7.0); HEMATOCRIT 27.3 % (37.0-47.0); HEMOGLOBIN 8.6 g/dl (12.0-16.0); LYMPHOCYTES # 1.3 10^3/ul (0.8-2.9); LYMPHOCYTES % 18.5 % (15.0-51.0); MEAN CORPUSCULAR HEMOGLOBIN 28.4 pg (29.0-33.0); MEAN CORPUSCULAR HGB CONC 31.5 g/dl (32.0-37.0); MEAN CORPUSCULAR VOLUME 90.1 fl (82.0-101.0); MONOCYTE # 0.7 10^3/ul (0.3-0.9); MONOCYTES % 10.4 % (0.0-11.0); NEUTROPHIL # 4.5 10^3/ul (1.6-7.5); NEUTROPHILS % 66.8 % (39.0-77.0); PLATELET COUNT 236 10^3/UL (140-415); RED BLOOD COUNT 3.03 10^6/ul (4.20-5.40); RED CELL DISTRIBUTION WIDTH 14.7 % (11.5-14.5)
[2017-08-21 09:10] LABS: WHITE BLOOD COUNT 6.8 10^3/ul (4.8-10.8)
[2017-08-21] MEDS: FIDAXOMICIN 200 MG TABLET PO ×2 (09:18→21:14)
[2017-08-21] MEDS: L ACIDOPHIL/B LACTIS/B LONGUM CAPSULE PO ×2 (09:18→21:14)
[2017-08-21] MEDS: ESCITALOPRAM 10 MG TAB PO (09:18)
[2017-08-21] MEDS: ENOXAPARIN 30 MG/0.3 ML SYG SC (09:26)
[2017-08-21 09:41] LABS: ANION GAP 12 (8-16); BLOOD UREA NITROGEN 2 mg/dl (7-20); CALCIUM 7.9 mg/dl (8.4-10.2); CARBON DIOXIDE 22 mmol/L (21-31); CHLORIDE 110 mmol/L (97-110); CREATININE 0.61 mg/dl (0.44-1.00); GLUCOSE 76 mg/dl (70-220); POTASSIUM 3.4 mmol/L (3.5-5.1); SODIUM 141 mmol/L (135-144)
[2017-08-21] MEDS: POTASSIUM CHLORIDE 50 ML IVPB ×2 (14:11→16:22)
[2017-08-21] MEDS: BALSAM PERU/CASTOR OIL 60 GM TUBE TOP ×2 (14:11→21:14)
[2017-08-21] MEDS ORDERED: VANCOMYCIN IV PER PHARMACY XX (22:00)
[2017-08-21] MEDS: VANCOMYCIN 1.5 GM in SOD CHLORIDE 0.9% 250 ML IVPB (23:39)
[2017-08-22] MEDS: HYDROmorphONE 0.5 MG/0.5 ML SYG IV ×9 (00:28→21:24)
[2017-08-22] MEDS: SOD CHLORIDE 0.9% 1,000 ML IV ×3 (02:30→18:30)
[2017-08-22] MEDS: LORAZEPAM 2 MG INJ IV ×4 (02:50→22:45)
[2017-08-22] MEDS: PANTOPRAZOLE 40 MG INJ IV (06:09)
[2017-08-22 06:34] LABS: HEMATOCRIT 22.6 % (37.0-47.0); HEMOGLOBIN 7.1 g/dl (12.0-16.0); MEAN CORPUSCULAR HEMOGLOBIN 28.7 pg (29.0-33.0); MEAN CORPUSCULAR HGB CONC 31.4 g/dl (32.0-37.0); MEAN CORPUSCULAR VOLUME 91.5 fl (82.0-101.0); MEAN PLATELET VOLUME 10.2 fl (7.4-10.4); PLATELET COUNT 118 10^3/UL (140-415); RED BLOOD COUNT 2.47 10^6/ul (4.20-5.40); RED CELL DISTRIBUTION WIDTH 14.6 % (11.5-14.5)
[2017-08-22 06:35] LABS: ADD MAN DIFF? YES; POSITIVE DIFF @See below
[2017-08-22 06:35] LABS: WHITE BLOOD COUNT 4.2 10^3/ul (4.8-10.8)
[2017-08-22 07:04] LABS: MAGNESIUM 1.1 mg/dl (1.7-2.5)
[2017-08-22 07:05] LABS: ANION GAP 12 (8-16); CARBON DIOXIDE 17 mmol/L (21-31); CHLORIDE 118 mmol/L (97-110); CREATININE 0.41 mg/dl (0.44-1.00); GLUCOSE 58 mg/dl (70-220); SODIUM 144 mmol/L (135-144)
[2017-08-22 07:08] LABS: BLOOD UREA NITROGEN < 2 mg/dl (7-20); POTASSIUM 2.8 mmol/L (3.5-5.1)
[2017-08-22 07:09] LABS: CALCIUM 5.9 mg/dl (8.4-10.2)
[2017-08-22 07:41] LABS: ANISOCYTOSIS 1+ (0-0); BAND NEUTROPHILS #M 0.2 10^3/ul (0.0-0.6); BAND NEUTROPHILS % (M) 6 % (0-4); BASOPHILS % (M) 1 % (0-2); LYMPHOCYTES #M 0.6 10^3/ul (0.8-2.9); LYMPHOCYTES % (M) 15 % (15-51); MICROCYTOSIS 1+ (0-0); MONOCYTE #M 0.6 10^3/ul (0.3-0.9); MONOCYTES % (M) 15 % (0-11); PLATELET ESTIMATE DECREASED; POIKILOCYTOSIS 1+ (0-0); POLYCHROMASIA 2+ (0-0); SEG NEUT #M 2.7 10^3/ul (1.6-7.5); SEGMENTED NEUTROPHILS (M) % 63 % (39-77); SMUDGE%M 14 % (0-0)
[2017-08-22] MEDS: MAGNESIUM SULFATE (GM) 50% 2 ML INJ IVPB ×2 (07:43→09:46)
[2017-08-22] MEDS: FIDAXOMICIN 200 MG TABLET PO ×2 (08:49→20:54)
[2017-08-22] MEDS: ESCITALOPRAM 10 MG TAB PO (08:49)
[2017-08-22] MEDS: L ACIDOPHIL/B LACTIS/B LONGUM CAPSULE PO ×2 (08:49→20:55)
[2017-08-22] MEDS: BALSAM PERU/CASTOR OIL 60 GM TUBE TOP ×2 (09:00→20:55)
[2017-08-22] MEDS: ENOXAPARIN 30 MG/0.3 ML SYG SC (09:00)
[2017-08-22] MEDS: MAGNESIUM SULFATE 3 GM in DEXTROSE 5% 100 ML IV ×2 (09:47→10:00)
[2017-08-22] MEDS: POTASSIUM CHLORIDE 100 ML IVPB ×3 (10:49→13:13)
[2017-08-22] MEDS: DEXTROSE 5% IVPB (13:58)
[2017-08-22] MEDS: TOBRAMYCIN IVPB (13:58)
[2017-08-22] MEDS: ACETAMINOPHEN 325 MG TAB PO (15:06)
[2017-08-22] MEDS: DIPHENHYDRAMINE 50 MG INJ IV (15:06)
[2017-08-22 15:26] LABS: IMMEDIATE SPIN CROSSMATCH 1 2
[2017-08-22] MEDS: VANCOMYCIN 1.25 GM in SOD CHLORIDE 0.9% 250 ML IVPB (16:05)
[2017-08-22 16:57] LABS: POTASSIUM 4.3 mmol/L (3.5-5.1)
[2017-08-22] MEDS: D5W-0.45 NACL + KCL 20 MEQ 1,000 ML IV (21:30)
[2017-08-23] MEDS: HYDROmorphONE 0.5 MG/0.5 ML SYG IV ×9 (02:04→23:29)
[2017-08-23] MEDS: VANCOMYCIN 1.25 GM in SOD CHLORIDE 0.9% 250 ML IVPB ×2 (02:04→13:31)
[2017-08-23] MEDS: D5W-0.45 NACL + KCL 20 MEQ 1,000 ML IV ×4 (02:05→23:28)
[2017-08-23] MEDS: PANTOPRAZOLE 40 MG INJ IV (05:17)
[2017-08-23] MEDS: LORAZEPAM 2 MG INJ IV ×2 (06:01→14:06)
[2017-08-23 06:04] LABS: ADD MAN DIFF? NO
[2017-08-23 06:20] LABS: BASOPHILS % 0.5 % (0.0-2.0); EOSINOPHILS # 0.3 10^3/ul (0.0-0.5); EOSINOPHILS % 4.6 % (0.0-7.0); HEMATOCRIT 34.4 % (37.0-47.0); HEMOGLOBIN 11.3 g/dl (12.0-16.0); LYMPHOCYTES # 1.4 10^3/ul (0.8-2.9); LYMPHOCYTES % 23.3 % (15.0-51.0); MEAN CORPUSCULAR HEMOGLOBIN 28.8 pg (29.0-33.0); MEAN CORPUSCULAR HGB CONC 32.8 g/dl (32.0-37.0); MEAN CORPUSCULAR VOLUME 87.8 fl (82.0-101.0); MEAN PLATELET VOLUME 9.2 fl (7.4-10.4); MONOCYTE # 0.8 10^3/ul (0.3-0.9); MONOCYTES % 12.5 % (0.0-11.0); NEUTROPHIL # 3.5 10^3/ul (1.6-7.5); NEUTROPHILS % 57.3 % (39.0-77.0); PLATELET COUNT 259 10^3/UL (140-415); RED BLOOD COUNT 3.92 10^6/ul (4.20-5.40); RED CELL DISTRIBUTION WIDTH 14.8 % (11.5-14.5)
[2017-08-23 06:20] LABS: WHITE BLOOD COUNT 6.1 10^3/ul (4.8-10.8)
[2017-08-23 06:51] LABS: ALANINE AMINOTRANSFERASE 15 IU/L (13-69); ALBUMIN 2.3 g/dl (3.3-4.9); ALBUMIN/GLOBULIN RATIO 0.79; ALKALINE PHOSPHATASE 76 IU/L (42-121); ANION GAP 11 (8-16); ASPARTATE AMINO TRANSFERASE < 8 IU/L (15-46); BILIRUBIN,INDIRECT 0.2 mg/dl (0-1.1); BILIRUBIN,TOTAL 0.2 mg/dl (0.2-1.3); BLOOD UREA NITROGEN 2 mg/dl (7-20); CALCIUM 7.8 mg/dl (8.4-10.2); CARBON DIOXIDE 24 mmol/L (21-31); CHLORIDE 112 mmol/L (97-110); CREATININE 0.52 mg/dl (0.44-1.00); GLUCOSE 99 mg/dl (70-220); POTASSIUM 3.8 mmol/L (3.5-5.1); SODIUM 143 mmol/L (135-144); TOTAL PROTEIN 5.2 g/dl (6.1-8.1)
[2017-08-23] MEDS: METHADONE 5 MG TAB PO ×2 (09:25→22:00)
[2017-08-23] MEDS: FIDAXOMICIN 200 MG TABLET PO ×2 (09:25→22:00)
[2017-08-23] MEDS: L ACIDOPHIL/B LACTIS/B LONGUM CAPSULE PO ×2 (09:25→22:00)
[2017-08-23] MEDS: ASCORBIC ACID 500 MG TAB PO (09:26)
[2017-08-23] MEDS: ESCITALOPRAM 10 MG TAB PO (09:26)
[2017-08-23] MEDS: MULTIVITAMINS THERAPEUTIC TAB PO (09:26)
[2017-08-23] MEDS: ZINC SULFATE 220 MG CAP PO (09:26)
[2017-08-23] MEDS: ENOXAPARIN 30 MG/0.3 ML SYG SC (09:27)
[2017-08-23] MEDS: BALSAM PERU/CASTOR OIL 60 GM TUBE TOP ×2 (09:30→22:01)
[2017-08-23 12:47] LABS: VANCOMYCIN,TROUGH 16.7 ug/ml (10.0-20.0)
[2017-08-23] MEDS: DEXTROSE 5% IVPB (23:28)
[2017-08-23] MEDS: TOBRAMYCIN IVPB (23:28)
[2017-08-23] MEDS: ZOLPIDEM 5 MG TAB PO (23:29)
[2017-08-24] MEDS: VANCOMYCIN 1.25 GM in SOD CHLORIDE 0.9% 250 ML IVPB ×2 (00:59→12:57)
[2017-08-24] MEDS: PANTOPRAZOLE 40 MG INJ IV (05:08)
[2017-08-24] MEDS: D5W-0.45 NACL + KCL 20 MEQ 1,000 ML IV ×3 (05:09→21:30)
[2017-08-24] MEDS: HYDROmorphONE 0.5 MG/0.5 ML SYG IV ×8 (05:49→22:25)
[2017-08-24 06:03] LABS: ADD MAN DIFF? NO
[2017-08-24 06:05] LABS: BASOPHILS % 0.5 % (0.0-2.0); EOSINOPHILS # 0.2 10^3/ul (0.0-0.5); EOSINOPHILS % 3.6 % (0.0-7.0); HEMATOCRIT 33.4 % (37.0-47.0); HEMOGLOBIN 10.8 g/dl (12.0-16.0); LYMPHOCYTES # 1.8 10^3/ul (0.8-2.9); LYMPHOCYTES % 29.8 % (15.0-51.0); MEAN CORPUSCULAR HEMOGLOBIN 28.7 pg (29.0-33.0); MEAN CORPUSCULAR HGB CONC 32.3 g/dl (32.0-37.0); MEAN CORPUSCULAR VOLUME 88.8 fl (82.0-101.0); MONOCYTE # 0.7 10^3/ul (0.3-0.9); MONOCYTES % 11.4 % (0.0-11.0); NEUTROPHIL # 3.2 10^3/ul (1.6-7.5); NEUTROPHILS % 52.2 % (39.0-77.0); PLATELET COUNT 283 10^3/UL (140-415); RED BLOOD COUNT 3.76 10^6/ul (4.20-5.40)
[2017-08-24 06:51] LABS: ANION GAP 8 (8-16); BLOOD UREA NITROGEN 4 mg/dl (7-20); CALCIUM 7.9 mg/dl (8.4-10.2); CARBON DIOXIDE 27 mmol/L (21-31); CHLORIDE 113 mmol/L (97-110); CREATININE 0.67 mg/dl (0.44-1.00); GLUCOSE 93 mg/dl (70-220); MAGNESIUM 1.6 mg/dl (1.7-2.5); POTASSIUM 4.4 mmol/L (3.5-5.1); SODIUM 144 mmol/L (135-144)
[2017-08-24] MEDS: ESCITALOPRAM 10 MG TAB PO (08:33)
[2017-08-24] MEDS: FIDAXOMICIN 200 MG TABLET PO ×2 (08:33→21:36)
[2017-08-24] MEDS: MULTIVITAMINS THERAPEUTIC TAB PO (08:33)
[2017-08-24] MEDS: ZINC SULFATE 220 MG CAP PO (08:33)
[2017-08-24] MEDS: L ACIDOPHIL/B LACTIS/B LONGUM CAPSULE PO ×2 (08:33→21:36)
[2017-08-24] MEDS: ASCORBIC ACID 500 MG TAB PO (08:33)
[2017-08-24] MEDS: METHADONE 5 MG TAB PO ×2 (08:34→21:00)
[2017-08-24] MEDS: BALSAM PERU/CASTOR OIL 60 GM TUBE TOP ×2 (08:34→21:38)
[2017-08-24] MEDS: ENOXAPARIN 30 MG/0.3 ML SYG SC (08:46)
[2017-08-24] MEDS: ZOLPIDEM 5 MG TAB PO (22:24)
[2017-08-25] MEDS: VANCOMYCIN 1.25 GM in SOD CHLORIDE 0.9% 250 ML IVPB ×2 (00:24→14:13)
[2017-08-25] MEDS: HYDROmorphONE 0.5 MG/0.5 ML SYG IV ×8 (00:28→23:23)
[2017-08-25] MEDS: D5W-0.45 NACL + KCL 20 MEQ 1,000 ML IV ×5 (04:28→21:30)
[2017-08-25] MEDS: SOD CHLORIDE 0.9% 500 ML IV (06:06)
[2017-08-25 06:18] LABS: ADD MAN DIFF? NO
[2017-08-25 06:22] LABS: WHITE BLOOD COUNT 7.4 10^3/ul (4.8-10.8)
[2017-08-25 06:22] LABS: BASOPHILS % 0.4 % (0.0-2.0); EOSINOPHILS # 0.2 10^3/ul (0.0-0.5); EOSINOPHILS % 3.2 % (0.0-7.0); HEMATOCRIT 33.9 % (37.0-47.0); HEMOGLOBIN 10.7 g/dl (12.0-16.0); LYMPHOCYTES # 1.9 10^3/ul (0.8-2.9); LYMPHOCYTES % 25.1 % (15.0-51.0); MEAN CORPUSCULAR HEMOGLOBIN 28.5 pg (29.0-33.0); MEAN CORPUSCULAR HGB CONC 31.6 g/dl (32.0-37.0); MEAN CORPUSCULAR VOLUME 90.2 fl (82.0-101.0); MONOCYTE # 0.8 10^3/ul (0.3-0.9); MONOCYTES % 10.3 % (0.0-11.0); NEUTROPHIL # 4.4 10^3/ul (1.6-7.5); PLATELET COUNT 298 10^3/UL (140-415); RED BLOOD COUNT 3.76 10^6/ul (4.20-5.40); RED CELL DISTRIBUTION WIDTH 14.9 % (11.5-14.5)
[2017-08-25] MEDS: PANTOPRAZOLE (EC) 40 MG TAB PO (06:25)
[2017-08-25 07:00] LABS: ANION GAP 10 (8-16); BLOOD UREA NITROGEN 7 mg/dl (7-20); CARBON DIOXIDE 29 mmol/L (21-31); CHLORIDE 109 mmol/L (97-110); CREATININE 0.65 mg/dl (0.44-1.00); GLUCOSE 95 mg/dl (70-220); POTASSIUM 4.5 mmol/L (3.5-5.1); SODIUM 143 mmol/L (135-144)
[2017-08-25] MEDS: ENOXAPARIN 30 MG/0.3 ML SYG SC (09:00)
[2017-08-25] MEDS: METHADONE 5 MG TAB PO ×2 (09:00→21:03)
[2017-08-25] MEDS: BALSAM PERU/CASTOR OIL 60 GM TUBE TOP ×2 (09:23→21:04)
[2017-08-25] MEDS: ZINC SULFATE 220 MG CAP PO (09:23)
[2017-08-25] MEDS: MULTIVITAMINS THERAPEUTIC TAB PO (09:23)
[2017-08-25] MEDS: L ACIDOPHIL/B LACTIS/B LONGUM CAPSULE PO ×2 (09:23→21:03)
[2017-08-25] MEDS: ESCITALOPRAM 10 MG TAB PO (09:24)
[2017-08-25] MEDS: FIDAXOMICIN 200 MG TABLET PO ×2 (09:24→21:03)
[2017-08-25] MEDS: ASCORBIC ACID 500 MG TAB PO (09:24)
[2017-08-25 09:27] LABS: ERYTHROCYTE SEDIMENTATION RATE 26 mm/Hr (0-20)
[2017-08-25] MEDS: TOBRAMYCIN IVPB (10:48)
[2017-08-25] MEDS: DEXTROSE 5% IVPB (10:48)
[2017-08-25] MEDS: LORAZEPAM 2 MG INJ IV ×2 (10:49→22:31)
[2017-08-26] MEDS: ZOLPIDEM 5 MG TAB PO (00:04)
[2017-08-26] MEDS: HYDROmorphONE 0.5 MG/0.5 ML SYG IV ×5 (01:38→17:53)
[2017-08-26 02:48] LABS: VANCOMYCIN,TROUGH 21.3 ug/ml (10.0-20.0)
[2017-08-26] MEDS: VANCOMYCIN 1.25 GM in SOD CHLORIDE 0.9% 250 ML IVPB (03:44)
[2017-08-26] MEDS: D5W-0.45 NACL + KCL 20 MEQ 1,000 ML IV ×3 (05:30→18:03)
[2017-08-26] MEDS: PANTOPRAZOLE (EC) 40 MG TAB PO (06:00)
[2017-08-26] MEDS: BALSAM PERU/CASTOR OIL 60 GM TUBE TOP ×2 (09:23→20:03)
[2017-08-26] MEDS: ZINC SULFATE 220 MG CAP PO ×2 (09:30→11:00)
[2017-08-26] MEDS: MULTIVITAMINS THERAPEUTIC TAB PO ×2 (09:30→11:00)
[2017-08-26] MEDS: FIDAXOMICIN 200 MG TABLET PO ×2 (09:30→11:01)
[2017-08-26] MEDS: ASCORBIC ACID 500 MG TAB PO ×2 (09:30→11:00)
[2017-08-26] MEDS: METHADONE 5 MG TAB PO ×2 (09:30→11:03)
[2017-08-26] MEDS: ENOXAPARIN 30 MG/0.3 ML SYG SC ×2 (09:30→11:02)
[2017-08-26] MEDS: L ACIDOPHIL/B LACTIS/B LONGUM CAPSULE PO ×2 (09:30→11:00)
[2017-08-26] MEDS: ESCITALOPRAM 10 MG TAB PO ×2 (09:30→11:01)
[2017-08-26] MEDS: LORAZEPAM 2 MG INJ IV ×2 (11:19→20:00)
[2017-08-26] MEDS ORDERED: VANCOMYCIN 1 GM 250 ML IVPB (15:00)
[2017-08-26] MEDS: VANCOMYCIN 750 MG in DEXTROSE 5% 150 ML IVPB (17:54)
[2017-08-26] MEDS: TOBRAMYCIN IVPB (22:53)
[2017-08-26] MEDS: DEXTROSE 5% IVPB (22:53)
[2017-08-27] MEDS: HYDROmorphONE 0.5 MG/0.5 ML SYG IV ×10 (01:23→23:49)
[2017-08-27] MEDS: D5W-0.45 NACL + KCL 20 MEQ 1,000 ML IV ×4 (04:15→21:00)
[2017-08-27] MEDS: PANTOPRAZOLE (EC) 40 MG TAB PO (04:58)
[2017-08-27] MEDS: VANCOMYCIN 750 MG in DEXTROSE 5% 150 ML IVPB ×2 (05:34→18:05)
[2017-08-27 06:05] LABS: ADD MAN DIFF? NO
[2017-08-27 06:17] LABS: WHITE BLOOD COUNT 7.3 10^3/ul (4.8-10.8)
[2017-08-27 06:17] LABS: BASOPHILS % 0.5 % (0.0-2.0); EOSINOPHILS # 0.2 10^3/ul (0.0-0.5); HEMATOCRIT 30.8 % (37.0-47.0); HEMOGLOBIN 9.6 g/dl (12.0-16.0); LYMPHOCYTES # 1.7 10^3/ul (0.8-2.9); LYMPHOCYTES % 23.1 % (15.0-51.0); MEAN CORPUSCULAR HEMOGLOBIN 28.3 pg (29.0-33.0); MEAN CORPUSCULAR HGB CONC 31.2 g/dl (32.0-37.0); MEAN CORPUSCULAR VOLUME 90.9 fl (82.0-101.0); MEAN PLATELET VOLUME 9.6 fl (7.4-10.4); MONOCYTE # 0.8 10^3/ul (0.3-0.9); MONOCYTES % 11.5 % (0.0-11.0); NEUTROPHIL # 4.4 10^3/ul (1.6-7.5); NEUTROPHILS % 60.7 % (39.0-77.0); PLATELET COUNT 262 10^3/UL (140-415); RED BLOOD COUNT 3.39 10^6/ul (4.20-5.40); RED CELL DISTRIBUTION WIDTH 14.7 % (11.5-14.5)
[2017-08-27 06:21] LABS: POSITIVE DIFF @See below
[2017-08-27 06:52] LABS: ANION GAP 11 (8-16); BLOOD UREA NITROGEN 13 mg/dl (7-20); CALCIUM 7.8 mg/dl (8.4-10.2); CARBON DIOXIDE 29 mmol/L (21-31); CHLORIDE 105 mmol/L (97-110); CREATININE 0.64 mg/dl (0.44-1.00); GLUCOSE 93 mg/dl (70-220); POTASSIUM 4.4 mmol/L (3.5-5.1); SODIUM 141 mmol/L (135-144)
[2017-08-27] MEDS: METHADONE 5 MG TAB PO ×3 (09:00→20:59)
[2017-08-27] MEDS: FIDAXOMICIN 200 MG TABLET PO ×2 (09:00→20:58)
[2017-08-27] MEDS: L ACIDOPHIL/B LACTIS/B LONGUM CAPSULE PO ×2 (09:00→20:58)
[2017-08-27] MEDS: MULTIVITAMINS THERAPEUTIC TAB PO (09:04)
[2017-08-27] MEDS: ZINC SULFATE 220 MG CAP PO (09:04)
[2017-08-27] MEDS: ENOXAPARIN 30 MG/0.3 ML SYG SC (09:04)
[2017-08-27] MEDS: ASCORBIC ACID 500 MG TAB PO (09:04)
[2017-08-27] MEDS: ESCITALOPRAM 10 MG TAB PO (09:04)
[2017-08-27] MEDS: BALSAM PERU/CASTOR OIL 60 GM TUBE TOP ×2 (10:43→20:59)
[2017-08-28] MEDS: ZOLPIDEM 5 MG TAB PO (00:49)
[2017-08-28] MEDS: HYDROmorphONE 0.5 MG/0.5 ML SYG IV ×8 (01:57→22:01)
[2017-08-28] MEDS: PANTOPRAZOLE (EC) 40 MG TAB PO (05:54)
[2017-08-28] MEDS: D5W-0.45 NACL + KCL 20 MEQ 1,000 ML IV ×3 (05:55→21:30)
[2017-08-28 06:21] LABS: ADD MAN DIFF? NO
[2017-08-28 06:28] LABS: BASOPHIL # 0.1 10^3/ul (0.0-0.1); BASOPHILS % 0.9 % (0.0-2.0); EOSINOPHILS # 0.3 10^3/ul (0.0-0.5); EOSINOPHILS % 4.4 % (0.0-7.0); HEMATOCRIT 31.6 % (37.0-47.0); HEMOGLOBIN 9.8 g/dl (12.0-16.0); LYMPHOCYTES # 1.8 10^3/ul (0.8-2.9); LYMPHOCYTES % 32.3 % (15.0-51.0); MEAN CORPUSCULAR HEMOGLOBIN 28.7 pg (29.0-33.0); MEAN CORPUSCULAR VOLUME 92.4 fl (82.0-101.0); MEAN PLATELET VOLUME 9.2 fl (7.4-10.4); MONOCYTE # 0.7 10^3/ul (0.3-0.9); MONOCYTES % 12.3 % (0.0-11.0); NEUTROPHIL # 2.8 10^3/ul (1.6-7.5); NEUTROPHILS % 48.7 % (39.0-77.0); PLATELET COUNT 328 10^3/UL (140-415); RED BLOOD COUNT 3.42 10^6/ul (4.20-5.40); RED CELL DISTRIBUTION WIDTH 14.6 % (11.5-14.5)
[2017-08-28 06:28] LABS: WHITE BLOOD COUNT 5.7 10^3/ul (4.8-10.8)
[2017-08-28 06:56] LABS: ANION GAP 9 (8-16); BLOOD UREA NITROGEN 12 mg/dl (7-20); CALCIUM 7.9 mg/dl (8.4-10.2); CARBON DIOXIDE 33 mmol/L (21-31); CHLORIDE 106 mmol/L (97-110); CREATININE 0.73 mg/dl (0.44-1.00); GLUCOSE 91 mg/dl (70-220); MAGNESIUM 1.4 mg/dl (1.7-2.5); POTASSIUM 4.3 mmol/L (3.5-5.1); SODIUM 144 mmol/L (135-144)
[2017-08-28 06:56] LABS: VANCOMYCIN,TROUGH 15.3 ug/ml (10.0-20.0)
[2017-08-28] MEDS: VANCOMYCIN 750 MG in DEXTROSE 5% 150 ML IVPB (07:04)
[2017-08-28] MEDS: L ACIDOPHIL/B LACTIS/B LONGUM CAPSULE PO ×2 (08:32→21:04)
[2017-08-28] MEDS: METHADONE 5 MG TAB PO ×3 (08:32→21:05)
[2017-08-28] MEDS: FIDAXOMICIN 200 MG TABLET PO (08:32)
[2017-08-28] MEDS: BALSAM PERU/CASTOR OIL 60 GM TUBE TOP ×2 (08:33→21:05)
[2017-08-28 09:03] LABS: MAGNESIUM 1.4 mg/dl (1.7-2.5)
[2017-08-28] MEDS: MAGNESIUM SULFATE 3 GM in DEXTROSE 5% 100 ML IVPB (10:39)
[2017-08-28] MEDS: DEXTROSE 5% IVPB (11:42)
[2017-08-28] MEDS: TOBRAMYCIN IVPB (11:42)
[2017-08-28] MEDS: ALTEPLASE (CATHFLO) 2 MG INJ CATHETER ×2 (13:57→13:58)
[2017-08-28] MEDS: VANCOMYCIN 500MG/NS (PMX) 100 ML IVPB (17:35)
[2017-08-29] MEDS: HYDROmorphONE 0.5 MG/0.5 ML SYG IV ×9 (00:09→20:26)
[2017-08-29] MEDS: ZOLPIDEM 5 MG TAB PO ×2 (00:58→21:25)
[2017-08-29] MEDS: D5W-0.45 NACL + KCL 20 MEQ 1,000 ML IV ×5 (02:32→23:58)
[2017-08-29] MEDS: VANCOMYCIN 500MG/NS (PMX) 100 ML IVPB ×2 (05:59→18:28)
[2017-08-29] MEDS: PANTOPRAZOLE (EC) 40 MG TAB PO (05:59)
[2017-08-29 06:55] LABS: ANION GAP 7 (8-16); BLOOD UREA NITROGEN 12 mg/dl (7-20); CALCIUM 8.1 mg/dl (8.4-10.2); CARBON DIOXIDE 33 mmol/L (21-31); CHLORIDE 107 mmol/L (97-110); GLUCOSE 92 mg/dl (70-220); POTASSIUM 5.2 mmol/L (3.5-5.1); SODIUM 142 mmol/L (135-144)
[2017-08-29] MEDS: ESCITALOPRAM 10 MG TAB PO (08:39)
[2017-08-29] MEDS: ASCORBIC ACID 500 MG TAB PO (08:39)
[2017-08-29] MEDS: MULTIVITAMINS THERAPEUTIC TAB PO (08:39)
[2017-08-29] MEDS: L ACIDOPHIL/B LACTIS/B LONGUM CAPSULE PO ×2 (08:39→20:25)
[2017-08-29] MEDS: METHADONE 5 MG TAB PO ×3 (08:39→21:22)
[2017-08-29] MEDS: ZINC SULFATE 220 MG CAP PO (08:39)
[2017-08-29] MEDS: BALSAM PERU/CASTOR OIL 60 GM TUBE TOP ×2 (08:40→20:27)
[2017-08-29] MEDS: ENOXAPARIN 30 MG/0.3 ML SYG SC (08:44)
[2017-08-29] MEDS: MAGNESIUM HYDROXIDE 30ML CUP PO (20:25)
[2017-08-30] MEDS: HYDROmorphONE 0.5 MG/0.5 ML SYG IV ×9 (02:33→21:56)
[2017-08-30] MEDS: D5W-0.45 NACL + KCL 20 MEQ 1,000 ML IV ×3 (05:30→21:49)
[2017-08-30] MEDS: VANCOMYCIN 500MG/NS (PMX) 100 ML IVPB (05:45)
[2017-08-30] MEDS: PANTOPRAZOLE (EC) 40 MG TAB PO (05:45)
[2017-08-30 06:07] LABS: ADD MAN DIFF? NO
[2017-08-30 06:09] LABS: WHITE BLOOD COUNT 5.4 10^3/ul (4.8-10.8)
[2017-08-30 06:09] LABS: BASOPHIL # 0.1 10^3/ul (0.0-0.1); BASOPHILS % 0.9 % (0.0-2.0); EOSINOPHILS # 0.1 10^3/ul (0.0-0.5); EOSINOPHILS % 2.4 % (0.0-7.0); HEMATOCRIT 33.2 % (37.0-47.0); HEMOGLOBIN 10.5 g/dl (12.0-16.0); LYMPHOCYTES # 1.5 10^3/ul (0.8-2.9); LYMPHOCYTES % 28.2 % (15.0-51.0); MEAN CORPUSCULAR HGB CONC 31.6 g/dl (32.0-37.0); MEAN CORPUSCULAR VOLUME 91.7 fl (82.0-101.0); MEAN PLATELET VOLUME 9.2 fl (7.4-10.4); MONOCYTE # 0.5 10^3/ul (0.3-0.9); MONOCYTES % 9.7 % (0.0-11.0); NEUTROPHIL # 3.1 10^3/ul (1.6-7.5); NEUTROPHILS % 58.2 % (39.0-77.0); PLATELET COUNT 346 10^3/UL (140-415); RED BLOOD COUNT 3.62 10^6/ul (4.20-5.40); RED CELL DISTRIBUTION WIDTH 14.5 % (11.5-14.5)
[2017-08-30 06:45] LABS: ANION GAP 8 (8-16); BLOOD UREA NITROGEN 10 mg/dl (7-20); CALCIUM 8.3 mg/dl (8.4-10.2); CARBON DIOXIDE 32 mmol/L (21-31); CHLORIDE 106 mmol/L (97-110); GLUCOSE 99 mg/dl (70-220); MAGNESIUM 2.1 mg/dl (1.7-2.5); POTASSIUM 4.9 mmol/L (3.5-5.1); SODIUM 141 mmol/L (135-144)
[2017-08-30] MEDS: BALSAM PERU/CASTOR OIL 60 GM TUBE TOP ×2 (08:26→21:48)
[2017-08-30] MEDS: ZINC SULFATE 220 MG CAP PO (08:26)
[2017-08-30] MEDS: MAGNESIUM HYDROXIDE 30ML CUP PO (08:26)
[2017-08-30] MEDS: L ACIDOPHIL/B LACTIS/B LONGUM CAPSULE PO ×2 (08:26→21:47)
[2017-08-30] MEDS: ESCITALOPRAM 10 MG TAB PO (08:26)
[2017-08-30] MEDS: MULTIVITAMINS THERAPEUTIC TAB PO (08:27)
[2017-08-30] MEDS: ASCORBIC ACID 500 MG TAB PO (08:27)
[2017-08-30] MEDS: ENOXAPARIN 30 MG/0.3 ML SYG SC (08:28)
[2017-08-30] MEDS: METHADONE 5 MG TAB PO ×3 (10:13→21:48)
[2017-08-30] MEDS: TOBRAMYCIN IVPB (10:14)
[2017-08-30] MEDS: DEXTROSE 5% IVPB (10:14)
[2017-08-30] MEDS: LIDOCAINE 1% (MDV) 10 ML INJ (13:26)
[2017-08-30] MEDS: NYSTATIN 30 GM POWDER BTL TOP ×2 (14:33→21:48)
[2017-08-31] MEDS: ZOLPIDEM 5 MG TAB PO ×2 (00:24→21:51)
[2017-08-31] MEDS: HYDROmorphONE 0.5 MG/0.5 ML SYG IV ×9 (00:25→23:48)
[2017-08-31] MEDS: PANTOPRAZOLE (EC) 40 MG TAB PO (05:50)
[2017-08-31] MEDS: D5W-0.45 NACL + KCL 20 MEQ 1,000 ML IV ×4 (05:50→21:30)
[2017-08-31 06:24] LABS: ADD MAN DIFF? NO
[2017-08-31 06:34] LABS: BASOPHIL # 0.1 10^3/ul (0.0-0.1); EOSINOPHILS # 0.2 10^3/ul (0.0-0.5); EOSINOPHILS % 3.2 % (0.0-7.0); HEMATOCRIT 29.4 % (37.0-47.0); HEMOGLOBIN 9.4 g/dl (12.0-16.0); LYMPHOCYTES # 1.6 10^3/ul (0.8-2.9); LYMPHOCYTES % 31.6 % (15.0-51.0); MEAN CORPUSCULAR HEMOGLOBIN 29.4 pg (29.0-33.0); MEAN CORPUSCULAR VOLUME 91.9 fl (82.0-101.0); MEAN PLATELET VOLUME 8.9 fl (7.4-10.4); MONOCYTE # 0.6 10^3/ul (0.3-0.9); NEUTROPHIL # 2.5 10^3/ul (1.6-7.5); NEUTROPHILS % 50.8 % (39.0-77.0); PLATELET COUNT 300 10^3/UL (140-415); RED CELL DISTRIBUTION WIDTH 14.3 % (11.5-14.5)
[2017-08-31 06:34] LABS: WHITE BLOOD COUNT 4.9 10^3/ul (4.8-10.8)
[2017-08-31 06:52] LABS: ANION GAP 11 (8-16); BLOOD UREA NITROGEN 11 mg/dl (7-20); CALCIUM 8.2 mg/dl (8.4-10.2); CARBON DIOXIDE 29 mmol/L (21-31); CHLORIDE 106 mmol/L (97-110); GLUCOSE 89 mg/dl (70-220); POTASSIUM 4.8 mmol/L (3.5-5.1); SODIUM 141 mmol/L (135-144)
[2017-08-31] MEDS: ENOXAPARIN 30 MG/0.3 ML SYG SC (09:00)
[2017-08-31] MEDS: ZINC SULFATE 220 MG CAP PO (09:09)
[2017-08-31] MEDS: ASCORBIC ACID 500 MG TAB PO (09:09)
[2017-08-31] MEDS: L ACIDOPHIL/B LACTIS/B LONGUM CAPSULE PO ×2 (09:09→20:59)
[2017-08-31] MEDS: MULTIVITAMINS THERAPEUTIC TAB PO (09:09)
[2017-08-31] MEDS: NYSTATIN 30 GM POWDER BTL TOP ×2 (09:09→20:59)
[2017-08-31] MEDS: METHADONE 5 MG TAB PO ×3 (09:09→20:59)
[2017-08-31] MEDS: ESCITALOPRAM 10 MG TAB PO (09:09)
[2017-08-31] MEDS: BALSAM PERU/CASTOR OIL 60 GM TUBE TOP ×2 (09:10→20:59)
[2017-09-01] MEDS: HYDROmorphONE 0.5 MG/0.5 ML SYG IV ×9 (01:48→22:00)
[2017-09-01] MEDS: D5W-0.45 NACL + KCL 20 MEQ 1,000 ML IV ×4 (01:53→20:05)
[2017-09-01] MEDS: PANTOPRAZOLE (EC) 40 MG TAB PO (06:04)
[2017-09-01] MEDS: MULTIVITAMINS THERAPEUTIC TAB PO (08:20)
[2017-09-01] MEDS: ESCITALOPRAM 10 MG TAB PO (08:20)
[2017-09-01] MEDS: ASCORBIC ACID 500 MG TAB PO (08:20)
[2017-09-01] MEDS: ZINC SULFATE 220 MG CAP PO (08:20)
[2017-09-01] MEDS: L ACIDOPHIL/B LACTIS/B LONGUM CAPSULE PO ×2 (08:20→20:00)
[2017-09-01] MEDS: METHADONE 5 MG TAB PO ×3 (09:25→20:00)
[2017-09-01] MEDS: ENOXAPARIN 30 MG/0.3 ML SYG SC (09:26)
[2017-09-01] MEDS: NYSTATIN 30 GM POWDER BTL TOP ×2 (09:26→20:01)
[2017-09-01] MEDS: BALSAM PERU/CASTOR OIL 60 GM TUBE TOP ×2 (09:26→20:01)
[2017-09-01] MEDS: ZOLPIDEM 5 MG TAB PO (22:00)
[2017-09-02] MEDS: HYDROmorphONE 0.5 MG/0.5 ML SYG IV ×4 (00:17→09:10)
[2017-09-02] MEDS: D5W-0.45 NACL + KCL 20 MEQ 1,000 ML IV ×5 (03:35→23:10)
[2017-09-02] MEDS: PANTOPRAZOLE (EC) 40 MG TAB PO (05:53)
[2017-09-02 06:06] LABS: ADD MAN DIFF? NO
[2017-09-02 06:13] LABS: BASOPHIL # 0.1 10^3/ul (0.0-0.1); BASOPHILS % 1.2 % (0.0-2.0); EOSINOPHILS # 0.2 10^3/ul (0.0-0.5); EOSINOPHILS % 3.9 % (0.0-7.0); HEMATOCRIT 31.4 % (37.0-47.0); HEMOGLOBIN 9.7 g/dl (12.0-16.0); LYMPHOCYTES # 1.5 10^3/ul (0.8-2.9); LYMPHOCYTES % 36.7 % (15.0-51.0); MEAN CORPUSCULAR HEMOGLOBIN 28.5 pg (29.0-33.0); MEAN CORPUSCULAR HGB CONC 30.9 g/dl (32.0-37.0); MEAN CORPUSCULAR VOLUME 92.4 fl (82.0-101.0); MEAN PLATELET VOLUME 8.8 fl (7.4-10.4); MONOCYTE # 0.5 10^3/ul (0.3-0.9); MONOCYTES % 12.9 % (0.0-11.0); NEUTROPHIL # 1.9 10^3/ul (1.6-7.5); NEUTROPHILS % 45.1 % (39.0-77.0); PLATELET COUNT 322 10^3/UL (140-415); RED CELL DISTRIBUTION WIDTH 14.2 % (11.5-14.5)
[2017-09-02 06:13] LABS: WHITE BLOOD COUNT 4.1 10^3/ul (4.8-10.8)
[2017-09-02 06:53] LABS: ANION GAP 8 (8-16); BLOOD UREA NITROGEN 11 mg/dl (7-20); CALCIUM 8.5 mg/dl (8.4-10.2); CARBON DIOXIDE 31 mmol/L (21-31); CHLORIDE 109 mmol/L (97-110); CREATININE 0.86 mg/dl (0.44-1.00); GLUCOSE 87 mg/dl (70-220); POTASSIUM 4.9 mmol/L (3.5-5.1); SODIUM 143 mmol/L (135-144)
[2017-09-02] MEDS: ASCORBIC ACID 500 MG TAB PO (09:09)
[2017-09-02] MEDS: ESCITALOPRAM 10 MG TAB PO (09:09)
[2017-09-02] MEDS: ZINC SULFATE 220 MG CAP PO (09:09)
[2017-09-02] MEDS: L ACIDOPHIL/B LACTIS/B LONGUM CAPSULE PO ×2 (09:09→20:39)
[2017-09-02] MEDS: METHADONE 5 MG TAB PO ×3 (09:09→20:39)
[2017-09-02] MEDS: MULTIVITAMINS THERAPEUTIC TAB PO (09:09)
[2017-09-02] MEDS: BALSAM PERU/CASTOR OIL 60 GM TUBE TOP ×2 (09:10→20:39)
[2017-09-02] MEDS: NYSTATIN 30 GM POWDER BTL TOP ×2 (09:10→20:38)
[2017-09-02] MEDS: ENOXAPARIN 30 MG/0.3 ML SYG SC (09:20)
[2017-09-02] MEDS: HYDROmorphONE 2 MG/ML SYG IV ×4 (12:09→21:50)
[2017-09-02] MEDS: ZOLPIDEM 5 MG TAB PO (21:50)
[2017-09-02 23:24] LABS: FLD MN% 22.5 %; FLD PMN% 77.5 %; FLD RBC 53000 /uL; FLD WBC 898 /cmm
[2017-09-02 23:33] LABS: FLUID GLUCOSE < 20 mg/dl
[2017-09-02 23:34] LABS: FLUID TYPE RIGHT HIP DRAINAGE
[2017-09-03 00:50] LABS: FLD CLARITY SLIGHTLY CLOUDY
[2017-09-03 00:50] LABS: FLD TYPE OTHERS
[2017-09-03 00:51] LABS: FLD COLOR AMBER
[2017-09-03] MEDS: HYDROmorphONE 2 MG/ML SYG IV ×7 (00:54→21:46)
[2017-09-03] MEDS: D5W-0.45 NACL + KCL 20 MEQ 1,000 ML IV ×2 (05:30→06:27)
[2017-09-03] MEDS: PANTOPRAZOLE (EC) 40 MG TAB PO (05:35)
[2017-09-03 06:12] LABS: ADD MAN DIFF? NO
[2017-09-03 06:17] LABS: BASOPHIL # 0.1 10^3/ul (0.0-0.1); BASOPHILS % 1.1 % (0.0-2.0); EOSINOPHILS # 0.2 10^3/ul (0.0-0.5); EOSINOPHILS % 3.4 % (0.0-7.0); HEMATOCRIT 31.7 % (37.0-47.0); HEMOGLOBIN 9.8 g/dl (12.0-16.0); LYMPHOCYTES # 1.5 10^3/ul (0.8-2.9); LYMPHOCYTES % 34.5 % (15.0-51.0); MEAN CORPUSCULAR HEMOGLOBIN 28.6 pg (29.0-33.0); MEAN CORPUSCULAR HGB CONC 30.9 g/dl (32.0-37.0); MEAN CORPUSCULAR VOLUME 92.4 fl (82.0-101.0); MEAN PLATELET VOLUME 8.7 fl (7.4-10.4); MONOCYTE # 0.6 10^3/ul (0.3-0.9); MONOCYTES % 12.6 % (0.0-11.0); NEUTROPHIL # 2.1 10^3/ul (1.6-7.5); NEUTROPHILS % 47.9 % (39.0-77.0); PLATELET COUNT 329 10^3/UL (140-415); RED BLOOD COUNT 3.43 10^6/ul (4.20-5.40); RED CELL DISTRIBUTION WIDTH 14.1 % (11.5-14.5)
[2017-09-03 06:17] LABS: WHITE BLOOD COUNT 4.4 10^3/ul (4.8-10.8)
[2017-09-03 06:49] LABS: ANION GAP 8 (8-16); BLOOD UREA NITROGEN 13 mg/dl (7-20); CALCIUM 8.3 mg/dl (8.4-10.2); CARBON DIOXIDE 31 mmol/L (21-31); CHLORIDE 108 mmol/L (97-110); CREATININE 0.89 mg/dl (0.44-1.00); GLUCOSE 89 mg/dl (70-220); MAGNESIUM 1.8 mg/dl (1.7-2.5); POTASSIUM 5.2 mmol/L (3.5-5.1); SODIUM 142 mmol/L (135-144)
[2017-09-03] MEDS: DEXTROSE 5%-0.9% NACL 1,000 ML IV ×2 (08:00→18:26)
[2017-09-03] MEDS: L ACIDOPHIL/B LACTIS/B LONGUM CAPSULE PO ×2 (09:00→21:29)
[2017-09-03] MEDS: METHADONE 5 MG TAB PO ×4 (09:00→21:29)
[2017-09-03] MEDS: ESCITALOPRAM 10 MG TAB PO (09:00)
[2017-09-03] MEDS: ASCORBIC ACID 500 MG TAB PO (09:00)
[2017-09-03] MEDS: BALSAM PERU/CASTOR OIL 60 GM TUBE TOP ×2 (09:02→21:29)
[2017-09-03] MEDS: ZINC SULFATE 220 MG CAP PO (09:05)
[2017-09-03] MEDS: NYSTATIN 30 GM POWDER BTL TOP ×2 (09:05→21:29)
[2017-09-03] MEDS: ENOXAPARIN 30 MG/0.3 ML SYG SC (09:06)
[2017-09-03] MEDS: MULTIVITAMINS THERAPEUTIC TAB PO (09:07)
[2017-09-03] MEDS: MAGNESIUM SULFATE 2 GM/50 ML 50 ML IVPB (14:16)
[2017-09-04] MEDS: HYDROmorphONE 1 MG/ML SYG IV ×7 (00:47→23:29)
[2017-09-04] MEDS: DEXTROSE 5%-0.9% NACL 1,000 ML IV ×3 (05:31→17:53)
[2017-09-04 06:42] LABS: ANION GAP 8 (8-16); BLOOD UREA NITROGEN 13 mg/dl (7-20); CALCIUM 8.4 mg/dl (8.4-10.2); CARBON DIOXIDE 31 mmol/L (21-31); CHLORIDE 109 mmol/L (97-110); CREATININE 0.88 mg/dl (0.44-1.00); GLUCOSE 89 mg/dl (70-220); MAGNESIUM 2.2 mg/dl (1.7-2.5); POTASSIUM 4.8 mmol/L (3.5-5.1); SODIUM 143 mmol/L (135-144)
[2017-09-04] MEDS: PANTOPRAZOLE (EC) 40 MG TAB PO (06:57)
[2017-09-04] MEDS: L ACIDOPHIL/B LACTIS/B LONGUM CAPSULE PO ×2 (09:02→20:47)
[2017-09-04] MEDS: ESCITALOPRAM 10 MG TAB PO (09:02)
[2017-09-04] MEDS: MULTIVITAMINS THERAPEUTIC TAB PO (09:03)
[2017-09-04] MEDS: ZINC SULFATE 220 MG CAP PO (09:03)
[2017-09-04] MEDS: BALSAM PERU/CASTOR OIL 60 GM TUBE TOP ×2 (09:03→20:48)
[2017-09-04] MEDS: ASCORBIC ACID 500 MG TAB PO (09:03)
[2017-09-04] MEDS: NYSTATIN 30 GM POWDER BTL TOP ×2 (09:03→20:48)
[2017-09-04] MEDS: METHADONE 5 MG TAB PO ×4 (09:06→20:48)
[2017-09-04] MEDS: ENOXAPARIN 30 MG/0.3 ML SYG SC (09:09)
[2017-09-04] MEDS: LORAZEPAM 2 MG INJ IV (12:23)
[2017-09-05] MEDS: ZOLPIDEM 5 MG TAB PO (01:40)
[2017-09-05] MEDS: ACETAMINOPHEN 325 MG TAB PO (01:40)
[2017-09-05] MEDS: HYDROmorphONE 1 MG/ML SYG IV ×4 (02:41→15:41)
[2017-09-05] MEDS: DEXTROSE 5%-0.9% NACL 1,000 ML IV ×3 (05:49→15:36)
[2017-09-05] MEDS: PANTOPRAZOLE (EC) 40 MG TAB PO ×2 (05:49→09:00)
[2017-09-05 06:50] LABS: ADD MAN DIFF? NO
[2017-09-05 06:57] LABS: BASOPHILS % 0.9 % (0.0-2.0); EOSINOPHILS # 0.2 10^3/ul (0.0-0.5); EOSINOPHILS % 4.7 % (0.0-7.0); HEMATOCRIT 27.8 % (37.0-47.0); HEMOGLOBIN 8.5 g/dl (12.0-16.0); LYMPHOCYTES # 1.4 10^3/ul (0.8-2.9); LYMPHOCYTES % 40.7 % (15.0-51.0); MEAN CORPUSCULAR HEMOGLOBIN 28.1 pg (29.0-33.0); MEAN CORPUSCULAR HGB CONC 30.6 g/dl (32.0-37.0); MEAN CORPUSCULAR VOLUME 91.7 fl (82.0-101.0); MEAN PLATELET VOLUME 8.8 fl (7.4-10.4); MONOCYTE # 0.5 10^3/ul (0.3-0.9); MONOCYTES % 14.2 % (0.0-11.0); NEUTROPHIL # 1.3 10^3/ul (1.6-7.5); NEUTROPHILS % 39.2 % (39.0-77.0); PLATELET COUNT 263 10^3/UL (140-415); RED BLOOD COUNT 3.03 10^6/ul (4.20-5.40); RED CELL DISTRIBUTION WIDTH 14.6 % (11.5-14.5)
[2017-09-05 06:57] LABS: WHITE BLOOD COUNT 3.4 10^3/ul (4.8-10.8)
[2017-09-05 07:12] LABS: ANION GAP 10 (8-16); BLOOD UREA NITROGEN 11 mg/dl (7-20); CALCIUM 7.5 mg/dl (8.4-10.2); CARBON DIOXIDE 26 mmol/L (21-31); CHLORIDE 110 mmol/L (97-110); CREATININE 0.69 mg/dl (0.44-1.00); POTASSIUM 3.9 mmol/L (3.5-5.1); SODIUM 142 mmol/L (135-144)
[2017-09-05 07:14] LABS: GLUCOSE 419 mg/dl (70-220)
[2017-09-05] MEDS: ESCITALOPRAM 10 MG TAB PO (09:00)
[2017-09-05] MEDS: METHADONE 5 MG TAB PO ×5 (09:00→20:45)
[2017-09-05] MEDS: ENOXAPARIN 30 MG/0.3 ML SYG SC ×2 (09:00→10:30)
[2017-09-05] MEDS: ASCORBIC ACID 500 MG TAB PO (09:00)
[2017-09-05] MEDS: L ACIDOPHIL/B LACTIS/B LONGUM CAPSULE PO ×2 (09:00→20:44)
[2017-09-05] MEDS: ZINC SULFATE 220 MG CAP PO (09:00)
[2017-09-05] MEDS: MULTIVITAMINS THERAPEUTIC TAB PO (09:00)
[2017-09-05] MEDS: BALSAM PERU/CASTOR OIL 60 GM TUBE TOP ×2 (09:09→20:46)
[2017-09-05] MEDS: NYSTATIN 30 GM POWDER BTL TOP ×2 (09:09→20:45)
[2017-09-05 09:43] LABS: GLUCOSE 87 mg/dl (70-220)
[2017-09-05] MEDS: LORAZEPAM 2 MG INJ IV ×2 (14:15→21:45)
[2017-09-05] MEDS: HYDROmorphONE 0.5 MG/0.5 ML SYG IV ×2 (20:34→23:52)
[2017-09-06] MEDS: HYDROmorphONE 1 MG/ML SYG IV ×7 (02:20→23:11)
[2017-09-06] MEDS: DEXTROSE 5%-0.9% NACL 1,000 ML IV ×4 (02:25→23:13)
[2017-09-06] MEDS: ZOLPIDEM 5 MG TAB PO (04:17)
[2017-09-06] MEDS: PANTOPRAZOLE (EC) 40 MG TAB PO (06:06)
[2017-09-06] MEDS: ZINC SULFATE 220 MG CAP PO (09:46)
[2017-09-06] MEDS: ASCORBIC ACID 500 MG TAB PO (09:47)
[2017-09-06] MEDS: ESCITALOPRAM 10 MG TAB PO (09:47)
[2017-09-06] MEDS: L ACIDOPHIL/B LACTIS/B LONGUM CAPSULE PO ×2 (09:47→21:02)
[2017-09-06] MEDS: MULTIVITAMINS THERAPEUTIC TAB PO (09:47)
[2017-09-06] MEDS: NYSTATIN 30 GM POWDER BTL TOP ×2 (09:48→21:01)
[2017-09-06] MEDS: BALSAM PERU/CASTOR OIL 60 GM TUBE TOP ×2 (09:48→21:01)
[2017-09-06] MEDS: ENOXAPARIN 30 MG/0.3 ML SYG SC (09:55)
[2017-09-06] MEDS: METHADONE 5 MG TAB PO ×4 (10:58→21:02)
[2017-09-06] MEDS: LORAZEPAM 2 MG INJ IV (16:49)
[2017-09-06] MEDS: FUROSEMIDE 40 MG TAB PO (23:35)
[2017-09-07] MEDS: HYDROmorphONE 1 MG/ML SYG IV ×6 (02:02→20:11)
[2017-09-07] MEDS: PANTOPRAZOLE (EC) 40 MG TAB PO (05:39)
[2017-09-07] MEDS: ESCITALOPRAM 10 MG TAB PO (08:52)
[2017-09-07] MEDS: L ACIDOPHIL/B LACTIS/B LONGUM CAPSULE PO ×2 (08:52→20:14)
[2017-09-07] MEDS: FUROSEMIDE 40 MG TAB PO (08:52)
[2017-09-07] MEDS: METHADONE 5 MG TAB PO ×4 (08:52→21:44)
[2017-09-07] MEDS: MULTIVITAMINS THERAPEUTIC TAB PO (08:53)
[2017-09-07] MEDS: ZINC SULFATE 220 MG CAP PO (08:53)
[2017-09-07] MEDS: ASCORBIC ACID 500 MG TAB PO (08:53)
[2017-09-07] MEDS: ENOXAPARIN 30 MG/0.3 ML SYG SC (08:54)
[2017-09-07] MEDS: NYSTATIN 30 GM POWDER BTL TOP ×2 (08:57→20:15)
[2017-09-07] MEDS: BALSAM PERU/CASTOR OIL 60 GM TUBE TOP ×2 (08:58→20:15)
[2017-09-07] MEDS: LORAZEPAM 2 MG INJ IV (21:45)
[2017-09-08] MEDS: HYDROmorphONE 1 MG/ML SYG IV ×6 (01:43→22:07)
[2017-09-08] MEDS: PANTOPRAZOLE (EC) 40 MG TAB PO (05:46)
[2017-09-08] MEDS: L ACIDOPHIL/B LACTIS/B LONGUM CAPSULE PO ×2 (08:39→22:06)
[2017-09-08] MEDS: MULTIVITAMINS THERAPEUTIC TAB PO (08:39)
[2017-09-08] MEDS: ESCITALOPRAM 10 MG TAB PO (08:39)
[2017-09-08] MEDS: FUROSEMIDE 40 MG TAB PO (08:39)
[2017-09-08] MEDS: METHADONE 5 MG TAB PO ×5 (08:40→21:00)
[2017-09-08] MEDS: ZINC SULFATE 220 MG CAP PO (08:40)
[2017-09-08] MEDS: ASCORBIC ACID 500 MG TAB PO (08:40)
[2017-09-08] MEDS: NYSTATIN 30 GM POWDER BTL TOP ×2 (08:45→20:21)
[2017-09-08] MEDS: ENOXAPARIN 30 MG/0.3 ML SYG SC (08:45)
[2017-09-08] MEDS: BALSAM PERU/CASTOR OIL 60 GM TUBE TOP ×2 (08:46→20:21)
[2017-09-08] MEDS: LORAZEPAM 2 MG INJ IV ×2 (11:23→20:15)
[2017-09-09] MEDS: HYDROmorphONE 1 MG/ML SYG IV ×6 (01:25→22:04)
[2017-09-09] MEDS: ZOLPIDEM 5 MG TAB PO (03:51)
[2017-09-09] MEDS: PANTOPRAZOLE (EC) 40 MG TAB PO (05:55)
[2017-09-09] MEDS: MULTIVITAMINS THERAPEUTIC TAB PO (09:10)
[2017-09-09] MEDS: ZINC SULFATE 220 MG CAP PO (09:10)
[2017-09-09] MEDS: ASCORBIC ACID 500 MG TAB PO (09:10)
[2017-09-09] MEDS: METHADONE 5 MG TAB PO ×4 (09:10→20:35)
[2017-09-09] MEDS: ESCITALOPRAM 10 MG TAB PO (09:10)
[2017-09-09] MEDS: L ACIDOPHIL/B LACTIS/B LONGUM CAPSULE PO ×2 (09:10→20:33)
[2017-09-09] MEDS: FUROSEMIDE 40 MG TAB PO (09:11)
[2017-09-09] MEDS: BALSAM PERU/CASTOR OIL 60 GM TUBE TOP ×2 (09:11→20:37)
[2017-09-09] MEDS: NYSTATIN 30 GM POWDER BTL TOP ×2 (09:11→20:37)
[2017-09-09] MEDS: ENOXAPARIN 30 MG/0.3 ML SYG SC (09:15)
[2017-09-09 11:40] LABS: ADD MAN DIFF? NO
[2017-09-09 11:43] LABS: WHITE BLOOD COUNT 5.1 10^3/ul (4.8-10.8)
[2017-09-09 11:43] LABS: BASOPHILS % 0.4 % (0.0-2.0); EOSINOPHILS # 0.3 10^3/ul (0.0-0.5); EOSINOPHILS % 5.4 % (0.0-7.0); HEMATOCRIT 33.4 % (37.0-47.0); HEMOGLOBIN 10.5 g/dl (12.0-16.0); LYMPHOCYTES # 1.7 10^3/ul (0.8-2.9); LYMPHOCYTES % 33.9 % (15.0-51.0); MEAN CORPUSCULAR HEMOGLOBIN 28.3 pg (29.0-33.0); MEAN CORPUSCULAR HGB CONC 31.4 g/dl (32.0-37.0); MEAN PLATELET VOLUME 8.4 fl (7.4-10.4); MONOCYTE # 0.6 10^3/ul (0.3-0.9); MONOCYTES % 10.9 % (0.0-11.0); NEUTROPHIL # 2.5 10^3/ul (1.6-7.5); NEUTROPHILS % 49.2 % (39.0-77.0); PLATELET COUNT 324 10^3/UL (140-415); RED BLOOD COUNT 3.71 10^6/ul (4.20-5.40); RED CELL DISTRIBUTION WIDTH 14.3 % (11.5-14.5)
[2017-09-09 12:01] LABS: ANION GAP 7 (8-16); BLOOD UREA NITROGEN 18 mg/dl (7-20); CARBON DIOXIDE 34 mmol/L (21-31); CHLORIDE 102 mmol/L (97-110); CREATININE 0.79 mg/dl (0.44-1.00); GLUCOSE 83 mg/dl (70-220); MAGNESIUM 1.7 mg/dl (1.7-2.5); POTASSIUM 4.3 mmol/L (3.5-5.1); SODIUM 139 mmol/L (135-144)
[2017-09-09] MEDS: LORAZEPAM 2 MG INJ IV ×2 (12:22→22:50)
[2017-09-10] MEDS: PANTOPRAZOLE (EC) 40 MG TAB PO (06:08)
[2017-09-10] MEDS: HYDROmorphONE 1 MG/ML SYG IV ×3 (06:08→14:42)
[2017-09-10] MEDS: BALSAM PERU/CASTOR OIL 60 GM TUBE TOP (08:27)
[2017-09-10] MEDS: ZINC SULFATE 220 MG CAP PO (08:27)
[2017-09-10] MEDS: MULTIVITAMINS THERAPEUTIC TAB PO (08:27)
[2017-09-10] MEDS: ASCORBIC ACID 500 MG TAB PO (08:27)
[2017-09-10] MEDS: NYSTATIN 30 GM POWDER BTL TOP (08:27)
[2017-09-10] MEDS: METHADONE 5 MG TAB PO ×3 (08:28→17:01)
[2017-09-10] MEDS: ESCITALOPRAM 10 MG TAB PO (08:28)
[2017-09-10] MEDS: L ACIDOPHIL/B LACTIS/B LONGUM CAPSULE PO (08:28)
[2017-09-10] MEDS: FUROSEMIDE 40 MG TAB PO (08:30)
[2017-09-10] MEDS: ENOXAPARIN 30 MG/0.3 ML SYG SC (08:32)
[2017-09-10] MEDS: LORAZEPAM 2 MG INJ IV (10:38)
[2017-09-10] MEDS ORDERED: ALTEPLASE (CATHFLO) 2 MG INJ CATHETER (13:30)
[2017-09-10] MEDS: ALTEPLASE (CATHFLO) 2 MG INJ CATHETER ×2 (13:40→13:43)
== END 2017-09-10 19:00 | DRG 871 ==
LOC: MS4 08-20 14:44 → MS2 08-21 15:00 → E/R 16:38 → ICU 18:43
PROC: 30233N1 Transfusion of Nonautologous Red Blood Cells into Peripheral Vein, Percutaneous Approach (ICD-10-PCS; 2017-08-22)
PROC: 0Y9 Anatomical Regions, Lower Extremities, Drainage (ICD-10-PCS; principal; 2017-08-27)
DX: A41.9 Sepsis, unspecified organism (principal); R65.21 Severe sepsis with septic shock; A04.72 Enterocolitis due to Clostridium difficile, not specified as recurrent; N39.0 Urinary tract infection, site not specified; G82.20 Paraplegia, unspecified; M96.842 Postprocedural seroma of a musculoskeletal structure following a musculoskeletal system procedure; D62 Acute posthemorrhagic anemia; M24.452 Recurrent dislocation, left hip; E86.0 Dehydration; F32.9 Major depressive disorder, single episode, unspecified; L89.892 Pressure ulcer of other site, stage 2; E83.42 Hypomagnesemia; B96.1 Klebsiella pneumoniae [K. pneumoniae] as the cause of diseases classified elsewhere; Z74.01 Bed confinement status; Y83.8 Other surgical procedures as the cause of abnormal reaction of the patient, or of later complication, without mention of misadventure at the time of the procedure; Y92.89 Other specified places as the place of occurrence of the external cause
CPT/HCPCS: 36415; 36430; 36589; 71045; 74178; 76536; 76942; 80048; 80053; 80200; 80202; 81001; 82784; 82945; 82947; 82962; 83605; 83735; 84132; 84484; 84703; 85025; 85610; 85651; 85730; 86140; 86850; 86900; 86901; 86920; 87040; 87045; 87070; 87075; 87086; 89051; 93005; 93306; 93970; 96365; 96366; 96375; 96376; 99291-25